=== PATIENT | female | born 1975 | race Caucasian/White ===

== ENCOUNTER 2020-04-18 23:21 | Emergency (ER) | payer OTHER, SELFPAY ==
[2020-04-18 23:30] VITALS: BP 134/80; PULSE 109; RESP 18; TEMP 36.9; O2SAT 100
[2020-04-18 23:55] LABS: Basophils Absolute Auto 0.1 K/mm3 (0.0-0.1); Basophils Percent Auto 1.3 % (0.2-1.2); Eosinophils Percent Auto 0.5 % (0-4.4); Hematocrit 44.2 % (37.0-47.0); Hemoglobin 15.4 g/dL (12.0-15.0); Immature Granulocyte Absolute 0.01 K/mm3 (0.00-0.031); Immature Granulocyte Percent A 0.3 % (0-0.5); Immature Platelet Fraction Pct 4.5 % (0.9-11.2); Lymphocytes Absolute Auto 1.73 K/mm3 (0.9-3.2); Lymphocytes Percent Auto 45.5 % (18.3-44.2); Mean Corpuscular HGB Conc 34.8 g/dl (32-36); Mean Corpuscular Hemoglobin 36.8 pg (26-34); Mean Corpuscular Volume 105.5 fl (80-100); Monocytes Absolute Auto 0.3 K/mm3 (0.1-0.6); Monocytes Percent Auto 8.7 % (2.6-8.5); Neutrophils Absolute Auto 1.7 K/mm3 (1.3-6.7); Neutrophils Percent Auto 43.7 % (45.5-73.1); Platelet Count Result 45 k/mm3 (150-375); Red Blood Count 4.19 M/mm3 (4.2-5.4); Red Cell Distribution Width 13.7 % (11.5-14.5); White Blood Count 3.8 K/mm3 (4.5-10.0)
[2020-04-19 00:02] LABS: Alanine Aminotransferase 87 U/L (4-35); Albumin Level 4.6 g/dL (3.5-5.1); Alkaline Phosphatase 186 U/L (38-126); Aspartate Amino Transferase 393 U/L (14-36); Bilirubin,Total 3.4 mg/dL (0.2-1.3); Blood Urea Nitrogen 10 mg/dL (7-17); Calcium 8.3 mg/dL (8.4-10.2); Carbon Dioxide 23 mmol/L (22-30); Chloride 94 mmol/L (98-107); Estimated Glomerular Filt Rate > 60; Glucose 76 mg/dL (65-105); Lipase 193 U/L (23-300); Potassium 3.3 mmol/L (3.4-5.0); Sodium 138 mmol/L (137-145)
--- NOTE | 2020-04-19 00:30 | PC.NURSE ---
Patient walked out.
== END 2020-04-19 00:30 | disposition left against medical advice (07) ==
PROVIDERS: Emergency Provider General Practice; PCP Physician Assistant
DX: Z53.21 Procedure and treatment not carried out due to patient leaving prior to being seen by health care provider (principal)
CPT/HCPCS: 36415; 80053; 83690; 85025; 85055; 99199

== ENCOUNTER 2020-05-21 17:07 | Emergency (ER) | payer OTHER, SELFPAY ==
[2020-05-21 17:10] VITALS: BP 105/80; PULSE 105; RESP 20; TEMP 37.1; O2SAT 100
[2020-05-21 17:50] LABS: Add Urine Microscopic? YES; Amorphous Sediment Urine Few; Appearance Urine Cloudy (Clear); Bacteria Urine Trace /hpf; Bilirubin Urine Negative (Negative); Blood Urine Negative (Negative); Color Urine Yellow (Yellow); Glucose Urine UA Negative (Negative); Ketones Urine Negative (Negative); Leukocyte Esterase Ur 2+ LEU/UL (Negative); Mucus Urine Rare /lpf; Nitrate Urine Negative (Negative); Protein Urine Negative (Negative); Specific Grav Ur 1.005 (1.001-1.035); Squamous Epithelial Cell Urine Many /hpf (Few)
--- NOTE | 2020-05-21 18:31 | ED.GENADULT ---
HPI - General Adult General Chief complaint: Unspecified Stated complaint: multiple complaints Time Seen by Provider: 05/21/20 17:51 Source: patient History of Present Illness HPI narrative: Bad odor urine, weakness, not feeling well for over 2 months. Trouble sleeping at night, patient denies any fever, chills, nausea, vomiting, diarrhea, constipation, chest pain, shortness of breath abdominal pain or back pain. Related Data Allergies Allergy/AdvReac Type Severity Reaction Status Date / Time No Known Allergies Allergy Verified 10/15/19 20:21 Review of Systems Review of Systems: Narrative: CONSTITUTIONAL: Denies fever, chills, or sweats. EYES: Denies visual changes, redness, or discharge. ENT: Denies rhinorrhea, congestion, sore throat, or otalgia. CARDIOVASCULAR: Denies chest pain, palpitations, or edema. RESPIRATORY: Denies cough or dyspnea. GASTROINTESTINAL: Denies abdominal pain, nausea, vomiting, or diarrhea. GENITOURINARY: Denies dysuria or hematuria. SKIN: Denies rash or itching. MUSCULOSKELETAL: Denies back pain, joint pain, or myalgia. NEUROLOGIC: Denies headache, numbness, or weakness. PSYCHIATRIC: Anxiety and depression PMFSH Past Medical History Medical History Anxiety Depression H/O: HTN (hypertension) Psoriasis Surgical History Surgical History No history of previous surgery Social History Social History Smoking packs per day: 1 Smoking cigarettes per day: 20.0 Smoking status: Current every day smoker Gender identity (if verbalized by the patient): Female Exam Narrative: Exam Narrative: General appearance: Well-developed, well-nourished Skin: Normal color Head: Normocephalic, nontraumatic Eyes: Clear conjunctiva ENT: Oropharynx normal, ears normal, nose normal Neck: Supple, nontender Chest and respiratory: Airway patent, no respiratory distress, no accessory muscle use Heart: Regular rate/rhythm Abdomen: Soft, nontender, no organomegaly, quiet bowel sounds Vascular: Normal peripheral pulses, normal capillary refill. 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 Further plan to follow. Patient had history of anxiety, depression, been having the above symptoms for over 2 months. Came today because her boyfriend insisted to bring her to our emergency room.. Main concern anxiety, depression, insomnia and a possible urinary tract infection. Patient denies COVID-19 exposure. Differential Diagnosis Differential Diagnosis: Urinary tract infection, depression, anxiety, insomnia, drug abuse. Vital Signs Vital Signs: Vital Signs Temperature 37.1 C 05/21/20 17:10 Pulse Rate 105 H 05/21/20 17:10 Respiratory Rate 05/21/20 17:10 Blood Pressure 105/80 05/21/20 17:10 Pulse Oximetry 100 05/21/20 17:10 Temperature 37.1 C 05/21/20 17:10 Pulse Rate 105 H 05/21/20 17:10 Respiratory Rate 05/21/20
== END 2020-05-21 18:48 | disposition home or self-care (01) ==
PROVIDERS: Physician Assistant; Emergency Provider Emergency Medicine; PCP Physician Assistant
DX: N39.0 Urinary tract infection, site not specified (principal); F32.9 Major depressive disorder, single episode, unspecified; I10 Essential (primary) hypertension; F17.210 Nicotine dependence, cigarettes, uncomplicated
CPT/HCPCS: 81001; 81025; 99283

== ENCOUNTER 2020-07-08 16:13 | Outpatient (CLI) | payer OTHER, SELFPAY ==
--- NOTE | ~2020-07-08 | CT_ITS ---
EXAMINATION: CT abdomen w con DATE: 07/08/2020 16:44 INDICATION: Right upper quadrant abdominal pain. TECHNIQUE: Computed tomography (CT) of the abdomen was performed with 100 mL Omnipaque 350 intravenou s contrast. Automated exposure control and iterative reconstruction technique were employed. The dose -length product was 128.79 mGy-cm. COMPARISON: None. FINDINGS: The visualized portions of the lung bases are clear without pneumonia or pleural effusion. The heart size is normal. No pericardial effusion. There is diffuse hepatic steatosis. The gallbladde r is normal in size. The spleen, pancreas, adrenal glands, and kidneys are normal. There are no dilat ed loops of bowel. There is mild thoracolumbar spondylosis. IMPRESSION: 1. Diffuse hepatic steatosis. Reviewed, dictated and finalized at location A.
[2020-07-08 16:38] LABS: Estimated Glomerular Filt Rate > 60
== END 2020-07-08 16:14 | disposition home or self-care (01) ==
PROVIDERS: Visit Provider Physician Assistant
DX: R10.11 Right upper quadrant pain (principal); K76.0 Fatty (change of) liver, not elsewhere classified
CPT/HCPCS: 74160; Q9967

== ENCOUNTER 2020-12-05 08:12 | Inpatient (IN) | payer OTHER, SELFPAY ==
[2020-12-05] VITALS (18 sets, daily range): BP systolic 98–152; BP diastolic 64–107; PULSE 87–98; RESP 12–22; TEMP 36.4–36.8; O2SAT 95–100
--- NOTE | ~2020-12-05 | CT_ITS ---
EXAMINATION: CT abdomen pelvis wo con DATE: 12/06/2020 18:16 INDICATION: Severe abdominal pain and distention TECHNIQUE: Computed tomography (CT) of the abdomen and pelvis was performed without intravenous contr ast. The dose-length product (DLP) was 219.97 mGy-cm. Automated exposure control and iterative recons truction technique were employed. COMPARISON: 12/05/2020 FINDINGS: Minimal dependent atelectasis is present in the lung bases. The heart size is normal. There is a small amount of ascites but significant decrease in volume post paracentesis. The liver is diff usely low in attenuation. The spleen, pancreas, adrenal glands, and gallbladder are grossly normal in the absence of intravenous contrast. Fluid surrounding the pancreas likely reflects ascites but panc reatitis is a consideration. The kidneys are unremarkable. No pathologically enlarged abdominal or pe lvic lymph nodes are identified. There is no free intraperitoneal gas or evidence of bowel obstructio n. Diffuse submucosal fat deposition throughout the colon may reflect inflammatory bowel disease. The re is a trace amount of gas in the urinary bladder. IMPRESSION: 1. Interval decrease in volume of ascites post paracentesis. 2. Fluid surrounding the pancreas, likely ascites but pancreatitis is a consideration. 3. Diffuse low-attenuation of the liver, consistent with hepatitis. Reviewed, dictated and finalized at location A. TER IMPRESSION: 1. Interval decrease in volume of ascites post paracentesis. 2. Fluid surrounding the pancreas, likely ascites but pancreatitis is a conside ration. 3. Diffuse low-attenuation of the liver, consistent with hepatitis.
--- NOTE | ~2020-12-05 | US_ITS ---
EXAMINATION: US abdomen limited DATE: 12/06/2020 11:10 INDICATION: Abnormal liver function tests. Abdominal pain. TECHNIQUE: Multiple grayscale and Doppler ultrasound images of the abdomen were obtained. COMPARISON: CT abdomen and pelvis 12/05/2020 FINDINGS: The visualized portions of the head, body, and tail of the pancreas are normal. There is di ffuse hepatic steatosis. No liver surface nodularity. The gallbladder is normal in size and contains sludge. Gallbladder wall thickening is noted. There was a positive sonographic Mccann sign. The commo n duct is normal and measures 6 mm. There is a small volume of ascites. There is normal flow in main portal vein. IMPRESSION: 1. Hepatic steatosis. 2. Normal-sized gallbladder with sludge, gallbladder wall thickening, and positive sonographic Mccann sign. These findings are indeterminate for acute cholecystitis. If there is clinical concern for acu te cholecystitis, consider hepatobiliary scintigraphy. 3. Small volume of ascites. Reviewed, dictated and finalized at location A. S DEPARTMENT MANAGER IMPRESSION: 1. Hepatic steatosis. 2. Normal-sized gallbladder with sludge, gallbladder wall thickening, and posit soila sonographic Mccann sign. These findings are indeterminate for acute cholecy stitis. If there is clinical concern for acute cholecystitis, consider hepatobi liary scintigraphy. 3. Small volume of ascites.
--- NOTE | ~2020-12-05 | XR_ITS ---
EXAMINATION: XR chest 1V portable DATE: 12/05/2020 09:36 INDICATION: Abdominal swelling. Weakness. TECHNIQUE: A single frontal view of the chest was obtained. COMPARISON: CT abdomen 07/08/2020 FINDINGS: The chest demonstrates clear lungs without pneumonia, pleural effusion, or pneumothorax. Th e heart size is normal. IMPRESSION: 1. No acute cardiopulmonary disease. Reviewed, dictated and finalized at location A. WELDER
--- NOTE | ~2020-12-05 | US_ITS ---
EXAMINATION: US paracentesis abd w/image EXAM DATE: 12/05/2020 13:22 INDICATION: Ascites, new onset. TECHNIQUE: The procedure and its risks and benefits were discussed with the patient. Alternatives als o discussed. Potential risks discussed included bleeding and infection. The skin was prepped and drap ed in sterile fashion. A total of 3 cc of 1% lidocaine was used for local anesthesia. Under ultrasoun d guidance, a 5 Fr catheter with trochar was advanced into the ascites in the left lower quadrant. Fl uid was aspirated into vacuum bottles. A total of 1.5 L straw colored fluid was taken in total. The catheter was removed, and a dressing was applied. There were no immediate complications. FINDINGS: Ultrasound images demonstrate ascites. IMPRESSION: Paracentesis yielding 1.5 L ascites for diagnostic purposes. Reviewed, dictated and finalized at location A. EXTINGUISHER INSPECTOR
--- NOTE | ~2020-12-05 | CT_ITS ---
EXAMINATION: CT abdomen pelvis w con EXAM DATE: 12/05/2020 11:20 INDICATION: Low abdominal pain. TECHNIQUE: Spiral CT of the abdomen and pelvis was performed following intravenous injection of 100 m L Omnipaque 350. Axial, coronal and sagittal images were reviewed. The dose-length product (DLP) fo r this examination was 201.86 mGy-cm. The exposure was tailored according to patient size (auto mA e xposure control), and iterative reconstruction (ASIR) was used as additional dose reduction technique . Comparison is made to prior examination from 07/08/2020. FINDINGS: Chronic severe hepatic steatosis, interval development of moderate amount of perihepatic as cites. There is also fluid in the gallbladder fossa. Gallbladder is moderately distended, similar to previous examination, without calcified cholelithiasis. No liver surface nodularity, but liver failur e, cirrhosis should be considered. Spleen is normal in size and adrenal glands are unremarkable. Generalized mesenteric, retroperitoneal, body wall fat stranding decreasing sensitivity for pancreati tis or other acute intra-abdominal processes. There is generalized colonic wall edema throughout the colon. There might be generalized small bowel wall edema as well. This is most likely from the same e tiology causing the generalized edema. Heart is normal in size. Consider checking patient's serum pro tein levels. Portal and splenic veins are patent. Kidneys enhance symmetrically. There is no hydronephrosis. T he uterus is unremarkable. The bladder is collapsed with some small foci of gas inside, could be fr om recent instrumentation but recommend correlating with urinalysis. There is no retroperitoneal or pelvic lymphadenopathy. The appendix is normal. No free intraperitoneal gas. The lung bases are un remarkable. There are no osteoblastic or osteolytic lesions identified. On previous examination patient also had severe hepatic steatosis. The ascites and generalized edema and bowel wall edema is new compared to that examination. IMPRESSION: 1. Severe hepatic steatosis. Interval development of moderate amount of ascites, extensive generaliz ed edema. Consider cirrhosis, hypoproteinemic etiology. 2. Bowel edema, retroperitoneal fat stranding, pericholecystic fluid most likely from the same under lying etiology. Can't radiographically exclude pancreatitis, cholecystitis, colitis. 3. Bladder gas, correlate with urinalysis. 4. Normal appendix. Reviewed, dictated and finalized at location A. AR TRIMMER IMPRESSION: 1. Severe hepatic steatosis. Interval development of moderate amount of ascite s, extensive generalized edema. Consider cirrhosis, hypoproteinemic etiology. 2. Bowel edema, retroperitoneal fat stranding, pericholecystic fluid most like ly from the same underlying etiology. Can't radiographically exclude pancreatit is, cholecystitis, colitis. 3. Bladder gas, correlate with urinalysis. 4. Normal appendix.
--- NOTE | ~2020-12-05 | US_ITS ---
EXAMINATION: US paracentesis abd w/image DATE: 12/06/2020 11:40 INDICATION: Ascites. TECHNIQUE: The procedure and its risks, benefits, and alternatives were discussed with the patient. P otential risks discussed included bleeding and infection. The skin was prepped and draped in sterile fashion. 1% lidocaine was used for local anesthesia. Under ultrasound guidance, a 5 Fr catheter with trochar was advanced into the ascites in the right abdomen. Fluid was aspirated. The catheter was rem son, and a dressing was applied. There were no immediate complications. FINDINGS: Ultrasound images demonstrate ascites and the catheter within the fluid. IMPRESSION: 1. Successful ultrasound-guided paracentesis yielding 925 mL of yellow fluid. Reviewed, dictated and finalized at location A. ETICS PROFESSOR
[2020-12-05] MEDS: SODIUM CHLORIDE 0.9% IV 1,000 ML 999 ML IV CONT (09:00)
[2020-12-05] MEDS: ONDANSETRON INJ 4 MG/2 ML VIAL IV PUSH (09:00)
[2020-12-05 09:20] LABS: Basophils Absolute Auto 0.1 K/mm3 (0.0-0.1); Basophils Percent Auto 0.7 % (0.2-1.2); Eosinophils Percent Auto 0.4 % (0-4.4); Hematocrit 28.3 % (37.0-47.0); Hemoglobin 9.7 g/dL (12.0-15.0); Immature Granulocyte Absolute 0.06 K/mm3 (0.00-0.031); Immature Granulocyte Percent A 0.5 % (0-0.5); Lymphocytes Absolute Auto 1.07 K/mm3 (0.9-3.2); Lymphocytes Percent Auto 9.4 % (18.3-44.2); Mean Corpuscular HGB Conc 34.3 g/dl (32-36); Mean Corpuscular Hemoglobin 37.7 pg (26-34); Mean Corpuscular Volume 110.1 fl (80-100); Mean Platelet Volume 10.9 fl (7.4-10.4); Monocytes Absolute Auto 0.7 K/mm3 (0.1-0.6); Monocytes Percent Auto 6.3 % (2.6-8.5); Neutrophils Absolute Auto 9.4 K/mm3 (1.3-6.7); Neutrophils Percent Auto 82.7 % (45.5-73.1); Platelet Count Result 77 k/mm3 (150-375); Red Blood Count 2.57 M/mm3 (4.2-5.4); Red Cell Distribution Width 18.6 % (11.5-14.5); White Blood Count 11.3 K/mm3 (4.5-10.0)
--- NOTE | 2020-12-05 09:27 | ED.ABDPAIN ---
HPI - Abdominal Pain General Chief Complaint: Abdominal Pain Stated Complaint: Abd, N/V/D Time Seen by Provider: 12/05/20 08:16 Source: patient Mode of arrival: EMS Limitations: no limitations History of Present Illness HPI narrative: This is 45 year old female with history of alcoholism who presents for evaluation of abdominal pain with nausea and vomiting. She reports diffuse abdominal pain for 6 days. She also reports intractable nausea and vomiting. She is unable to keep any by mouth down. She is jaundice. She has recently been seen by a liver specialist at [facility], and she reports she was told everything was fine. She has been jaundice before but it resolved by the time she was evaluated by GI at [facility]. Her last drink of alcohol was 2 weeks ago. She denies fever, chills, chest pain, cough. She also notes her abdomen is distended. Related Data Home Medications Medication Instructions Recorded Confirmed amlodipine 5 mg PO DAILY 12/05/20 12/05/20 atenolol 25 mg PO DAILY 12/05/20 12/05/20 lisinopril 20 mg PO DAILY 12/05/20 12/05/20 zolpidem [Ambien] 10 mg PO HS PRN 12/05/20 12/05/20 Allergies Allergy/AdvReac Type Severity Reaction Status Date / Time No Known Allergies Allergy Verified 12/05/20 16:20 Review of Systems Review of Systems: All systems reviewed & are unremarkable except as noted in HPI and below Constitutional: Constitutional: Denies chills and Denies fever(s) Cardiovascular: Cardiovascular: Denies chest pain Respiratory: Respiratory: Denies cough and Denies dyspnea Gastrointestinal: Gastrointestinal: Reports abdominal pain, Reports diarrhea, Reports nausea and Reports vomiting [facility] Past Medical History Medical History (Updated 12/05/20 @ 14:20 by Kalyn Crawford MD) Anxiety Depression H/O: HTN (hypertension) Psoriasis Surgical History Surgical History No history of previous surgery Social History Social History Smoking packs per day: 0.5 Smoking cigarettes per day: 10.0 Years smoked: 20 Smoking pack-years: 10.00 Smoking status: Current every day smoker Tobacco type: cigarettes Alcohol intake: former Substance use: former Substance use type: marijuana Gender identity (if verbalized by the patient): Female Spiritual care concerns: No Exam Const: General: alert and ill appearing Nutritional Appearance: thin Orientation/consciousness: patient oriented x3 Eyes: Conjunctivae: conjunctival abnormality bilateral conjunctival icterus EOM: EOMs intact bilaterally Resp: Effort & Inspection: normal respiratory effort and no retractions Auscultation: clear to auscultation bilaterally Cardio: Rate: regular rate Rhythm: regular rhythm Heart sounds: no murmurs GI: Inspection: distended GI Palp: Yes Soft to palpation and Yes Tenderness to palpation present (GI) (diffuse) Auscultation: normal bowel sounds Skin: General skin exam: jaundice Neuro: General: patient oriented x3 and moves all extremities Extrem: General: no pedal edema Course Reevaluation(s) Reevaluation #1: I discussed with patient that she will be admitted at [place] with GI consult. She states she feels better after paracentesis. She denies nausea. She will be treated for SBP for now and given potassium replacement. She received magnesium replacement with banana bag Date: 12/05/20 Time: 14:17 Consultations Consultation #1: I Discussed case with Dr. Mariaelena Slade. I asked if felt comfortable consulting or if I should transfer. He is okay with consultation. Date: 12/05/20 Time: 14:16 Consultation #2: I discussed case with Lauren Worley who accepts patient to hospitalist service with GI consult. Date: 12/05/20 Time: 14:16 Vital Signs Vital signs: Vital Signs Temperature 98.2 F 12/05/20 08:18 Pulse Rate 94 12/05/20 08:18 Respiratory Rate 16 12/05/20 0
[2020-12-05 09:31] LABS: Ammonia 44 umol/L (9-30)
[2020-12-05 09:38] LABS: Albumin Level 2.4 g/dL (3.5-5.1); Alkaline Phosphatase 251 U/L (38-126); Anion Gap 8 mmol/L (8-16); Aspartate Amino Transferase 220 U/L (14-36); Bilirubin Direct 9.4 mg/dL (0-0.3); Bilirubin,Total 15.5 mg/dL (0.2-1.3); Blood Urea Nitrogen 6 mg/dL (7-17); Calcium 6.9 mg/dL (8.4-10.2); Carbon Dioxide 33 mmol/L (22-30); Chloride 97 mmol/L (98-107); Estimated CRCL calculation 121 ml/min; Estimated Glomerular Filt Rate > 60; Glucose 73 mg/dL (65-105); Lipase 20 U/L (23-300); Magnesium 1.1 mg/dL (1.6-2.3); Potassium 2.7 mmol/L (3.4-5.0); Sodium 138 mmol/L (137-145)
[2020-12-05 09:43] LABS: Alanine Aminotransferase 59 U/L (4-35)
[2020-12-05 09:56] LABS: Prothrombin Time 23.1 Seconds (11.1-14.7)
[2020-12-05 09:57] LABS: Partial Thromboplastin Time 40.2 SECONDS (22.3-36.8)
[2020-12-05] MEDS: THIAMINE HCL INJ 100 MG, FOLIC ACID INJ 1 MG, MULTIVITAMINS-12 INJ VIAL 1 5 ML, MULTIVI... IV CONT (10:00)
[2020-12-05 11:24] LABS: Add Urine Microscopic? YES; Appearance Urine Clear (Clear); Bacteria Urine 4+ /hpf; Bilirubin Urine 2+ (Negative); Blood Urine Negative (Negative); Color Urine Red (Yellow); Glucose Urine UA Negative (Negative); Ketones Urine Trace mg/dL (Negative); Leukocyte Esterase Ur Negative LEU/UL (Negative); Mucus Urine Heavy /lpf; Nitrate Urine Positive (Negative); Protein Urine 2+ mg/dL (Negative); Specific Grav Ur 1.025 (1.001-1.035); WBC Urine 31-50 /hpf
[2020-12-05 14:15] LABS: Appearance Peritoneal Fluid Clear (Clear); Color Peritoneal Fluid Yellow (Colorless); Nucleated Cells Peritoneal Flu 56 /uL (0-500); RBC Peritoneal Fluid 627 /uL (0-100000); Source Peritoneal Fluid Peritoneal Fluid
[2020-12-05] MEDS: POTASSIUM CHLORIDE 20 MEQ TABLET 40 MEQ PO (14:50)
[2020-12-05 14:51] LABS: Lymphocytes Peritoneal Fluid 26 %; Macrophages Peritoneal Fluid 64 %; Mesothelial Cells Peritoneal Fluid 8 %; Neutrophils Peritoneal Fluid 2 % (0-25)
--- NOTE | 2020-12-05 16:12 | ADMGEN ---
This patient, Dena Proctor, was admitted to 2 Medical Room 260-. Patient/family oriented to hospital policies and general routines including ID bracelet, bed and alarms, visiting hours, pain management, procedures, bathroom and other care routines, personal items, smoking policy, room service/diet, and visiting hours. Information on how to activate the Rapid Response Team has been discussed. Patient/Family are encouraged to report perceived risks to care and to ask questions if they do not understand what they are told or what they should do.
--- NOTE | 2020-12-05 20:49 | PM.IMHP ---
H&P: HPI History of Present Illness Date/Time: 12/05/20 20:49 Chief Complaint: Jaundice and abdominal pain Narrative: Dena Proctor is a 45 year old female who has a history of alcoholism. The patient stated that she was a heavy drinker and quit drinking about 10 years ago. She states that occasionally she will have here with her . The patient has gone to liver specialist at [facility] in the past. She said that they ran a hepatitis panel and stated that she did not have hepatitis. The patient was jaundiced at that time. They told her that there was nothing that they could do for her at that time. The patient stated that she went to them 2 times total but does not recall the name of the doctor. However for the last 6 days she has had nausea vomiting and diarrhea. The patient stated that she cannot control her diarrhea and that she has had to wear large pad due to multiple loose stools. The patient was found to be jaundiced today. The patient stated that she laid on the couch for 6 days because she was so weak. She had intractable nausea and vomiting. Dr. Yates was consulted and agreed to accept the patient for consult. She has not had any fever chills. The patient's belly was distended. She stated she felt like she was 9 months . The patient did have a paracentesis for diagnostic purposes. She had not had a paracentesis in the past. She had 1.5 mL drained off of her abdomen and she did get some recent leave. A banana bag was started on her in the emergency room the patient stated she felt like her abdomen was becoming more distended again. So we stop banana bag. The patient took some clear liquids tonight which made her become distended. The patient was also found have a UTI and was started on Rocephin. It was thought that the patient might also have SBP the patient's potassium was listed as 2.7 and she was given A K- rider. Magnesium 1.1. AST is 220 ALT is 59 alkaline phosphatase 251 ammonia 44 lipase is 20. Patient is admitted inpatient status on the date of service 12/05/2020 Review of Systems Review of Systems: All systems reviewed & are unremarkable except as noted in HPI and below Constitutional: Constitutional: Reports as per HPI and Reports no additional constitutional complaints Eyes: Eyes: Reports as per HPI and Reports no additional eye complaints ENT: Reports system reviewed and no additional complaints, except as documented and Reports Normal hearing present Cardiovascular: Cardiovascular: Reports no additional cardiovascular complaints Respiratory: Respiratory: Reports no additional respiratory complaints and Reports no additional respiratory complaints Gastrointestinal: Gastrointestinal: Reports as per HPI and Reports no additional gastrointestinal complaints Musculoskeletal: Musculoskeletal: Reports no additional musculoskeletal complaints Integumentary/Breasts: Skin/Breast: Reports system reviewed and no additional complaints, except as docu and Reports as per HPI Neurologic: Reports system reviewed and no additional complaints, except as documented, Reports as per HPI and Reports Normal hearing present Psychiatric: Psychiatric: Reports no additional psychiatric complaints and Reports as per HPI Endocrine: Endocrine: Reports no additional endocrine complaints Hematologic/Lymphatic: Hematologic/Lymphatic: Reports no additional hematologic/lymphatic complaints Allergic/Immunologic: Allergic/Immunologic: Reports no additional allergic/immunologic complaints PMF Past Medical History Medical History (Updated 12/05/20 @ 21:26 by Lauren Worley NP) Alcoholism Anxiety Depression H/O: HTN (hypertension) HTN (hypertension), benign Psoriasis Surgical History Surgical History No history of previous surgery Family History Family History (Updated 12/05/20 @ 21:11 by Lauren Worley NP) Mother Lung cancer Hype
[2020-12-05] MEDS: MAGNESIUM SULF 2 GM/WATER 50ML 2 GM/50 ML BAG IVPB (21:28)
[2020-12-05] MEDS: ZOLPIDEM TARTRATE (*CRX) 5 MG TABLET 10 MG PO (21:29)
[2020-12-06] VITALS (11 sets, daily range): BP systolic 98–120; BP diastolic 55–75; PULSE 86–104; RESP 16–25; TEMP 36.4–37.2; O2SAT 92–98; BMI 17.9
[2020-12-06 05:35] LABS: Basophils Absolute Auto 0.1 K/mm3 (0.0-0.1); Basophils Percent Auto 0.8 % (0.2-1.2); Eosinophils Absolute Auto 0.1 K/mm3 (0-0.3); Eosinophils Percent Auto 1.2 % (0-4.4); Hematocrit 23.8 % (37.0-47.0); Hemoglobin 8.3 g/dL (12.0-15.0); Immature Granulocyte Absolute 0.08 K/mm3 (0.00-0.031); Immature Granulocyte Percent A 0.8 % (0-0.5); Immature Platelet Fraction Pct 8.4 % (0.9-11.2); Lymphocytes Absolute Auto 1.46 K/mm3 (0.9-3.2); Lymphocytes Percent Auto 14.7 % (18.3-44.2); Mean Corpuscular HGB Conc 34.9 g/dl (32-36); Mean Corpuscular Hemoglobin 38.6 pg (26-34); Mean Corpuscular Volume 110.7 fl (80-100); Mean Platelet Volume 12.1 fl (7.4-10.4); Monocytes Absolute Auto 0.8 K/mm3 (0.1-0.6); Monocytes Percent Auto 7.5 % (2.6-8.5); Neutrophils Absolute Auto 7.5 K/mm3 (1.3-6.7); Platelet Count Result 83 k/mm3 (150-375); Red Blood Count 2.15 M/mm3 (4.2-5.4); Red Cell Distribution Width 18.8 % (11.5-14.5)
[2020-12-06 06:12] LABS: INR 1.9; Prothrombin Time 22.5 Seconds (11.1-14.7)
[2020-12-06 06:13] LABS: Partial Thromboplastin Time 44.4 SECONDS (22.3-36.8)
[2020-12-06 07:57] LABS: Alanine Aminotransferase 56 U/L (4-35); Albumin Level 2.2 g/dL (3.5-5.1); Alkaline Phosphatase 251 U/L (38-126); Anion Gap 6 mmol/L (8-16); Aspartate Amino Transferase 211 U/L (14-36); Bilirubin,Total 14.3 mg/dL (0.2-1.3); Blood Urea Nitrogen 4 mg/dL (7-17); Carbon Dioxide 29 mmol/L (22-30); Chloride 100 mmol/L (98-107); Estimated CRCL calculation 117 ml/min; Estimated Glomerular Filt Rate > 60; Glucose 69 mg/dL (65-105); Lactate Dehydrogenase 285 U/L (313-618); Magnesium 1.7 mg/dL (1.6-2.3); Potassium 3.2 mmol/L (3.4-5.0); Sodium 135 mmol/L (137-145)
[2020-12-06] MEDS: THIAMINE HCL 200 MG/2 ML VIAL 100 MG IV PUSH (08:07)
[2020-12-06] MEDS: FOLIC ACID 1 MG/0.2 ML INJ IV PUSH (08:08)
[2020-12-06] MEDS: PANTOPRAZOLE SODIUM IV 40 MG VIAL IV PUSH (08:08)
[2020-12-06 09:18] LABS: Free T4 Free Thyroxine Reflex 1.62 ng/dL (0.78-2.19)
--- NOTE | 2020-12-06 10:51 | PM.IMPN ---
Progress Note: A&P Assessment and Plan (1) Cirrhosis: Code(s): K74.60 - Unspecified cirrhosis of liver Status: Acute Assessment and Plan: Patient has a history of alcoholism and continues to drink occasionally which is likely the cause of her liver failure -her CT shows severe hepatic steatosis which is interesting. Awaiting ultrasound results for further clarification -could be multifactorial. 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 Can consider autoimmune hepatitis as well -I recommend she get a liver biopsy -will draw hepatitis labs, SANKET, anti smooth muscle, anti trypsin, and immunoglobulin panel -paracentesis done 12/05 which helped but then she received fluids and said she is now distended again -no infection suspected but will monitor cultures -albumin slightly low. Blood pressure is also low. May consider giving albumin and diuretics but will ask GI their recommendations -patient is alert oriented x4, no need for lactulose. -likely has diarrhea due to liver failure, will do stool cultures just in case -no pruritus this at this time (2) Hyperbilirubinemia: Code(s): E80.6 - Other disorders of bilirubin metabolism Status: Acute Assessment and Plan: Likely due to liver failure -autoimmune anemia less likely due to low LDH (3) Transaminasemia: Code(s): R74.01 - Elevation of levels of liver transaminase levels Status: Acute Assessment and Plan: As above (4) Hypomagnesemia: Code(s): E83.42 - Hypomagnesemia Status: Acute Assessment and Plan: Magnesium 1.7 -will redraw with morning labs (5) HTN (hypertension), benign: Code(s): I10 - Essential (primary) hypertension Status: Chronic Assessment and Plan: Last blood pressure 98/55 -hold home medications (6) Jaundice: Code(s): R17 - Unspecified jaundice Status: Acute Assessment and Plan: Secondary to her liver disease (7) Anemia: Code(s): D64.9 - Anemia, unspecified Status: Acute Assessment and Plan: Hemoglobin dropped who compared to last year -likely due to chronic disease -will run anemia labs (8) Hypokalemia: Code(s): E87.6 - Hypokalemia Status: Acute Assessment and Plan: Improving, supplement again today (9) Nausea and vomiting: Code(s): R11.2 - Nausea with vomiting, unspecified Status: Acute Assessment and Plan: Improved (10) Thrombocytopenia: Code(s): D69.6 - Thrombocytopenia, unspecified Status: Acute Assessment and Plan: Likely due to liver disease . (11) Alcoholism: Code(s): F10.20 - Alcohol dependence, uncomplicated Status: Inactive Assessment and Plan: Continue folic acid and thigh min. Patient plans to quit and is tearful -Support offered. She states she is going to do this on her own. Family at bedside plans to help. (12) Diarrhea: Code(s): R19.7 - Diarrhea, unspecified Status: Acute Assessment and Plan: Likely due to liver failure -will check cultures just in case -Add banitrol Time Spent With Patient Time with patient: 25 - 35 minutes Subjective Date/time seen: 12/06/20 10:51 Interval history: Pt is a 45-year-old female here for liver failure. Patient was seen today and states she feels swollen and she continues to have diarrhea. She has been NPO for her paracentesis and is hungry. Pt denies nausea, vomiting, itching, fevers, chills, chest pain, sob, or abdominal pain. She states in the past she has seen a liver specialist but never had a biopsy. She says she has psoriasis but does not take any medications for such. She does not do IV drugs but does have professional tattoos. She occasionally drinks shots of alcohol. She has about 5-9 bouts of diarrhea a day but denies blood or dark stool. She is eating and
[2020-12-06 11:53] LABS: Total Triiodothyronine (T3) 0.43 NG/ML (0.97-1.69)
[2020-12-06] MEDS: POTASSIUM CHLORIDE 20 MEQ TABLET 40 MEQ PO (12:00)
[2020-12-06 12:09] LABS: Hematocrit 27.2 % (37.0-47.0); Hemoglobin 9.3 g/dL (12.0-15.0)
[2020-12-06 12:43] LABS: Iron 41 ug/dL (37-170); Percent Iron Saturation 30 % (20-50)
[2020-12-06 13:05] LABS: Hepatitis B Surface Antigen Negative (Negative)
[2020-12-06 13:11] LABS: HAV RESULT Negative (Negative); Hepatitis B Core IgM Result Negative (Negative)
[2020-12-06 13:23] LABS: Hepatitis C Virus Antibody Negative (Negative)
[2020-12-06 13:26] LABS: Folic Acid 18.8 ng/mL (2.76->20)
--- NOTE | 2020-12-06 15:08 | WPDGICN ---
Assessment and Plan Assessment and plan (1) Alcoholic hepatitis with ascites: Code(s): K70.11 - Alcoholic hepatitis with ascites Status: Acute Assessment and Plan: she now has decompensated alcoholic hepatitis/cirrhosis with new ascites, this is her first paracentesis- no evidence of SBP. Albumin in fluid is pending to rule out if portal hypertension. 2g na diet with nutrition supplement will start on diuretics for now (lasix 40mg, aldactone 100mg) and continue to monitor lytes and renal function she will need to call again her first crusher [facility], if she can successfully remain abstinent then will benefit from liver transplant evaluation down the road she has elevated discriminant function at 51- will start on trental (she may have uti and started on antibiotics, hold off steroids), MELD score 15 (2) Cirrhosis, alcoholic: Code(s): K70.30 - Alcoholic cirrhosis of liver without ascites Status: Acute Assessment and Plan: cirrhosis probably is alcohol related, work up for other chronic liver conditions pending hepatitis panel negative (3) Thrombocytopenia: Code(s): D69.6 - Thrombocytopenia, unspecified Status: Acute Assessment and Plan: from cirrhosis (4) Nausea and vomiting: Code(s): R11.2 - Nausea with vomiting, unspecified Status: Acute Assessment and Plan: egd tomorrow, also will be helpful to assess if varices, phg, etc (5) Hypokalemia: Code(s): E87.6 - Hypokalemia Status: Acute Assessment and Plan: treated and continue to monitor (6) Hyperbilirubinemia: Code(s): E80.6 - Other disorders of bilirubin metabolism Status: Acute (7) HTN (hypertension), benign: Code(s): I10 - Essential (primary) hypertension Status: Chronic GI Consult Note Consult date/time: 12/06/20 15:08 Reason for consult: decompensated alcoholic cirrhosis, ascites HPI: Dena Proctor is a 45 year old female who is an alcoholic, about 1 pint of heavy liquor for 20 years, she says that finally slowed down about 6 months after got sicker with intermittent nausea, last time she got anything to drink about 3 weeks ago. She has seen a first crusher in [facility] because elevated liver enzymes , no records to review. She says that noted increasing abdominal girth with more fatigue than usual, also decrease appetite, loose stool and dark urine. More nausea and vomiting for last 5-6 days and finally came to ER. She was found to have alcoholic hepatitis, potassium 2.7 and treated, magnesium 1.1. AST 220, ALT 59, alkaline phosphatase 251, bili 14, inr 1.9, ammonia 44, lipase is 20, plat 80, creat 0.4. CT scan reviewed, hepatic steatosis with ascites. She underwent paracentesis twice (total removed ~ 2.5 L), studies did not reveal SBP. Also possible UTI started on rocephin. Hepatitis panel negative, she has multiple tattoos. Review of Systems Constitutional: Constitutional: Reports lethargy Eyes: Eyes: Reports no additional eye complaints ENT: Reports system reviewed and no additional complaints, except as documented Cardiovascular: Cardiovascular: Denies lightheadedness Respiratory: Respiratory: Denies cough Gastrointestinal: Gastrointestinal: Reports abdominal pain, Reports nausea and Reports vomiting Genitourinary: Comments: dark urine Musculoskeletal: Musculoskeletal: Denies back pain Integumentary/Breasts: Skin/Breast: Denies pruritus Neurologic: Denies headache(s) Psychiatric: Psychiatric: Reports anxiety Endocrine: Endocrine: Denies cold intolerance [facility] Past Medical History Medical History (Updated 12/06/20 @ 15:18 by Jimmy Hoyt MD) Alcoholic hepatitis with ascites Alcoholism Anxiety Cirrhosis, alcoholic Depression H/O: HTN (hypertension) HTN (hypertension), benign Psoriasis Surgical History Surgical History No history of previous surgery Family Histor
[2020-12-06] MEDS: SPIRONOLACTONE 50 MG TABLET 100 MG PO (16:02)
[2020-12-06] MEDS: ZINC SULFATE 220 MG CAPSULE PO (16:02)
[2020-12-06] MEDS: PENTOXIFYLLINE 400 MG TABCR PO (16:02)
[2020-12-06] MEDS: FUROSEMIDE 40 MG TABLET PO (16:02)
[2020-12-06] MEDS: chlordiazePOXIDE (*CRX) 10 MG CAPSULE PO (18:49)
[2020-12-06] MEDS: ZOLPIDEM TARTRATE (*CRX) 5 MG TABLET 10 MG PO (20:06)
[2020-12-06 21:41] LABS: Lipase 19 U/L (23-300)
[2020-12-07] VITALS (13 sets, daily range): BP systolic 77–103; BP diastolic 51–66; PULSE 82–98; RESP 16–30; TEMP 36.4–37; O2SAT 94–98
[2020-12-07 00:43] LABS: Lipase 25 U/L (23-300)
[2020-12-07 06:49] LABS: Hematocrit 25.1 % (37.0-47.0); Hemoglobin 8.5 g/dL (12.0-15.0); Mean Corpuscular HGB Conc 33.9 g/dl (32-36); Mean Corpuscular Hemoglobin 37.6 pg (26-34); Mean Corpuscular Volume 111.1 fl (80-100); Mean Platelet Volume 10.9 fl (7.4-10.4); Platelet Count Result 93 k/mm3 (150-375); Red Blood Count 2.26 M/mm3 (4.2-5.4); Red Cell Distribution Width 18.9 % (11.5-14.5); White Blood Count 11.5 K/mm3 (4.5-10.0)
[2020-12-07 06:53] LABS: INR 1.9; Prothrombin Time 22.3 Seconds (11.1-14.7)
[2020-12-07 07:01] LABS: Alanine Aminotransferase 58 U/L (4-35); Albumin Level 2.3 g/dL (3.5-5.1); Alkaline Phosphatase 238 U/L (38-126); Anion Gap 4 mmol/L (8-16); Aspartate Amino Transferase 208 U/L (14-36); Bilirubin Direct 8.6 mg/dL (0-0.3); Bilirubin,Total 14.8 mg/dL (0.2-1.3); Blood Urea Nitrogen 3 mg/dL (7-17); Calcium 6.9 mg/dL (8.4-10.2); Carbon Dioxide 32 mmol/L (22-30); Chloride 98 mmol/L (98-107); Estimated CRCL calculation 81 ml/min; Estimated Glomerular Filt Rate > 60; Glucose 88 mg/dL (65-105); Potassium 3.5 mmol/L (3.4-5.0); Sodium 134 mmol/L (137-145)
[2020-12-07] MEDS: PANTOPRAZOLE SODIUM IV 40 MG VIAL IV PUSH (08:58)
[2020-12-07] MEDS: FOLIC ACID 1 MG/0.2 ML INJ IV PUSH (09:01)
--- NOTE | 2020-12-07 09:20 | PC.NURSE ---
Pt to GI lab per cong. Report to JOSEMANUEL Gray.
--- NOTE | 2020-12-07 09:28 | WPDANESEPPF ---
Anes - Initial Pre Proc Eval Procedure: Operation Date: 12/07/20 10:45 Proposed Procedures p Esophagogastroduodenoscopy - Jimmy Hoyt MD Date/Time: 12/07/20 09:28 Surgeon: Dona Lai PA-C Pre Op Diagnosis: Abdominal pain with ascites/cirrhosis/hypokalemia Patient Data Age: 45 Gender: F Height: 1.68 m Weight: 50 kg Last Vital Signs Temp 36.5 C 12/07/20 05:12 Pulse 87 12/07/20 08:00 Resp 16 12/07/20 05:12 BP 103/66 12/07/20 05:12 Pulse Ox 95 12/07/20 05:12 Allergies Allergy/AdvReac Type Severity Reaction Status Date / Time No Known Allergies Allergy Verified 12/05/20 16:20 Home Medications Medication Instructions Recorded Confirmed Type amlodipine 5 mg PO DAILY 12/05/20 12/05/20 History atenolol 25 mg PO DAILY 12/05/20 12/05/20 History lisinopril 20 mg PO DAILY 12/05/20 12/05/20 History zolpidem [Ambien] 10 mg PO HS PRN 12/05/20 12/05/20 History Laboratory Tests 12/06/20 12/06/20 12/06/20 05:13 06:12 11:52 WBC RBC Hgb Hct MCV MCH MCHC RDW Plt Count MPV PT INR Sodium Potassium Chloride Carbon Dioxide Anion Gap BUN Creatinine Estim Creat Clear Calc Estimated GFR Glucose Calcium Iron 41 ug/dL ug/dL (37-170) TIBC 135 ug/dL L ug/dL (261-462) % Saturation 30 % % (20-50) Ferritin 651.00 ng/mL H ng/mL (6.24-137) Total Bilirubin Direct Bilirubin Indirect Bilirubin AST ALT Alkaline Phosphatase Total Protein Albumin Alpha-1-AT Phenotype Ceruloplasmin Lipase 19 U/L L U/L (23-300) Vitamin B12 Folate Total T3 0.43 NG/ML L NG/ML (0.97-1.69) Immunoglobulin A Immunoglobulin G Immunoglobulin M SANKET Screen Mitochondria M2 IgG Ab Actin IgG Antibody Hepatitis A IgM Ab Hep Bs Antigen Hep B Core IgM Ab Hepatitis C Ab Screen LILLY, IgG Interpret LILLY, Poly Interpret LILLY, Complement Interp 12/06/20 12/06/2012/06/21 11:52 11:52 11:52 WBC RBC Hgb 9.3 g/dL L g/dL (12.0-15.0) Hct 27.2 % L % (37.0-47.0) MCV MCH MCHC RDW Plt Count MPV PT INR Sodium Potassium Chloride Carbon Dioxide Anion Gap BUN Creatinine Estim Creat Clear Calc Estimated GFR Glucose Calcium Iron TIBC % Saturation Ferritin Total Bilirubin Direct Bilirubin Indirect Bilirubin AST ALT Alkaline Phosphatase Total Protein Albumin Alpha-1-AT Phenotype Ceruloplasmin Lipase Vitamin B12 Folate Total T3 Immunoglobulin A Immunoglobulin G Immunoglobulin M SANKET Screen Mitochondria M2 IgG Ab Actin IgG Antibody Hepatitis A IgM Ab Negative (Negative) Hep Bs Antigen Negative (Negative) Hep B Core IgM Ab Negative (Negative) Hepatitis C Ab Screen Negative (Negative) LILLY, IgG Interpret Negative LILLY, Poly Interpret Negative LILLY,
[2020-12-07] MEDS: LACTATED RINGERS 1,000 ML 150 ML IV CONT (09:49)
--- NOTE | 2020-12-07 11:20 | PC.NURSE ---
Pt returned from GI lab per cong.
[2020-12-07] MEDS: SPIRONOLACTONE 50 MG TABLET 100 MG PO (11:28)
[2020-12-07] MEDS: PENTOXIFYLLINE 400 MG TABCR PO ×2 (11:28→18:01)
[2020-12-07] MEDS: ZINC SULFATE 220 MG CAPSULE PO (11:28)
[2020-12-07] MEDS: chlordiazePOXIDE (*CRX) 10 MG CAPSULE PO (11:28)
[2020-12-07] MEDS: FUROSEMIDE 40 MG TABLET PO (11:29)
[2020-12-07] MEDS: THIAMINE HCL 200 MG/2 ML VIAL 100 MG IV PUSH (12:01)
--- NOTE | 2020-12-07 14:31 | PM.IMPN ---
Progress Note: A&P Assessment and Plan (1) Hypotension: Code(s): I95.9 - Hypotension, unspecified Status: Acute Assessment and Plan: Last blood pressure 79/52 -patient is having lightheadedness which she says she gets home at times -this is likely due to the diuretics, I talked to Dr. Yates and we have decreased both of the Lasix and the spironolactone -I do not suspect infection to be the cause of this. Her blood cultures are negative and she does not have any fevers. -will monitor closely, continue telemetry (2) Acute alcoholic hepatitis: Code(s): K70.10 - Alcoholic hepatitis without ascites Status: Acute Assessment and Plan: Patient has a history of alcoholism and continues to drink occasionally which is likely the cause of her liver failure -her CT shows severe hepatic steatosis which is interesting. Ultrasound also shows this -EGD does not show esophageal varices but does show signs of portal hypertension according to Dr. Yates -could be multifactorial. Patient has a history of untreated psoriasis which is an autoimmune disease. Can consider autoimmune hepatitis as well -I recommend she get a liver biopsy -hepatitis panel negative - SANKET, anti smooth muscle, anti trypsin, and immunoglobulin panel pending -paracentesis done 12/05 and 12/06 -no infection suspected but will monitor cultures -albumin slightly low. Blood pressure is also low. May consider giving albumin and diuretics but will ask GI their recommendations -patient is alert oriented x4, no need for lactulose. -no pruritus this at this time (3) Cirrhosis: Code(s): K74.60 - Unspecified cirrhosis of liver Status: Acute Assessment and Plan: As above (4) Hyperbilirubinemia: Code(s): E80.6 - Other disorders of bilirubin metabolism Status: Acute Assessment and Plan: Likely due to liver failure -autoimmune anemia less likely due to low LDH (5) Transaminasemia: Code(s): R74.01 - Elevation of levels of liver transaminase levels Status: Acute Assessment and Plan: As above (6) Hypomagnesemia: Code(s): E83.42 - Hypomagnesemia Status: Acute Assessment and Plan: Magnesium 1.7 yesterday -will redraw with morning labs (7) HTN (hypertension), benign: Code(s): I10 - Essential (primary) hypertension Status: Chronic Assessment and Plan: Running low, as stated above (8) Jaundice: Code(s): R17 - Unspecified jaundice Status: Acute Assessment and Plan: Secondary to her liver disease (9) Anemia: Code(s): D64.9 - Anemia, unspecified Status: Acute Assessment and Plan: Hemoglobin dropped who compared to last year -likely due to chronic disease (10) Hypokalemia: Code(s): E87.6 - Hypokalemia Status: Acute Assessment and Plan: Improved to 3.5 (11) Nausea and vomiting: Code(s): R11.2 - Nausea with vomiting, unspecified Status: Acute Assessment and Plan: Improved (12) Thrombocytopenia: Code(s): D69.6 - Thrombocytopenia, unspecified Status: Acute Assessment and Plan: Likely due to liver disease . (13) Alcoholism: Code(s): F10.20 - Alcohol dependence, uncomplicated Status: Inactive Assessment and Plan: Continue folic acid and thiamine. Patient plans to quit and is tearful -Support offered. She states she is going to do this on her own. Family at bedside plans to help. (14) Diarrhea: Code(s): R19.7 - Diarrhea, unspecified Status: Acute Assessment and Plan: Likely due to liver failure -improved Subjective Date/time seen: 12/07/20 14:31 Interval history: Pt is a 45-year-old female here for liver failure. Patient was seen today and is doing okay. She says she has some lightheadedness that happens when she stands up. She say
[2020-12-07] MEDS: LORazepam (*CRX) 0.5 MG TABLET PO (14:39)
[2020-12-07] MEDS: ONDANSETRON INJ 4 MG/2 ML VIAL IV PUSH (14:39)
[2020-12-07 18:32] LABS: IFOB Positive Control Positive; Immunochemical Fecal Occult Bl Negative (N)
[2020-12-08] VITALS (8 sets, daily range): BP systolic 92–124; BP diastolic 56–86; PULSE 76–94; RESP 16–20; TEMP 36.1–36.8; O2SAT 95–98
[2020-12-08] MEDS: chlordiazePOXIDE (*CRX) 10 MG CAPSULE PO ×3 (01:25→17:40)
[2020-12-08 07:03] LABS: Basophils Percent Auto 0.2 % (0.2-1.2); Eosinophils Percent Auto 0.3 % (0-4.4); Hemoglobin 10.1 g/dL (12.0-15.0); Immature Granulocyte Absolute 0.13 K/mm3 (0.00-0.031); Lymphocytes Absolute Auto 1.24 K/mm3 (0.9-3.2); Lymphocytes Percent Auto 9.8 % (18.3-44.2); Mean Corpuscular HGB Conc 33.7 g/dl (32-36); Mean Corpuscular Hemoglobin 38.7 pg (26-34); Mean Corpuscular Volume 114.9 fl (80-100); Mean Platelet Volume 10.7 fl (7.4-10.4); Monocytes Percent Auto 7.6 % (2.6-8.5); Neutrophils Absolute Auto 10.2 K/mm3 (1.3-6.7); Neutrophils Percent Auto 81.1 % (45.5-73.1); Platelet Count Result 98 k/mm3 (150-375); Red Blood Count 2.61 M/mm3 (4.2-5.4); Red Cell Distribution Width 19.5 % (11.5-14.5); White Blood Count 12.6 K/mm3 (4.5-10.0)
[2020-12-08 07:15] LABS: Potassium 2.9 mmol/L (3.4-5.0)
[2020-12-08 07:53] LABS: Alanine Aminotransferase 65 U/L (4-35); Albumin Level 2.6 g/dL (3.5-5.1); Alkaline Phosphatase 281 U/L (38-126); Anion Gap 8 mmol/L (8-16); Aspartate Amino Transferase 252 U/L (14-36); Bilirubin Direct 8.1 mg/dL (0-0.3); Bilirubin,Total 15.4 mg/dL (0.2-1.3); Blood Urea Nitrogen 4 mg/dL (7-17); Calcium 7.5 mg/dL (8.4-10.2); Carbon Dioxide 30 mmol/L (22-30); Chloride 95 mmol/L (98-107); Estimated CRCL calculation 76 ml/min; Estimated Glomerular Filt Rate > 60; Glucose 120 mg/dL (65-105); Magnesium 1.5 mg/dL (1.6-2.3); Sodium 133 mmol/L (137-145)
[2020-12-08] MEDS: PENTOXIFYLLINE 400 MG TABCR PO ×2 (08:11→16:40)
[2020-12-08] MEDS: FOLIC ACID 1 MG/0.2 ML INJ IV PUSH (08:11)
[2020-12-08] MEDS: ZINC SULFATE 220 MG CAPSULE PO (08:12)
[2020-12-08] MEDS: THIAMINE HCL 200 MG/2 ML VIAL 100 MG IV PUSH (08:12)
[2020-12-08] MEDS: SPIRONOLACTONE 50 MG TABLET PO (08:12)
[2020-12-08] MEDS: FUROSEMIDE 20 MG TABLET PO (08:12)
[2020-12-08] MEDS: PANTOPRAZOLE SODIUM IV 40 MG VIAL IV PUSH (08:12)
[2020-12-08 09:55] LABS: Salicylate < 1.0 mg/dL (2-20)
--- NOTE | 2020-12-08 09:57 | WPDANESPN ---
Anes - Prog Note Post-Op Date/Time: 12/08/20 09:57 Cardiovascular status: normal Respiratory status: normal Airway patency: baseline Mental status: baseline Post-Op hydration status: normal Vital Signs: Last Vital Signs Temp 97.5 F L 12/08/20 08:00 Pulse 86 12/08/20 08:00 Resp 16 12/08/20 08:00 BP 109/69 12/08/20 08:00 Pulse Ox 98 12/08/20 08:00 Pain Score (VAS): 210 I/O: Intake & Output 12/07/20 12/08/20 12/08/20 23:59 07:59 15:59 Intake Total 300 120 540 Output Total 0 Balance 300 120 540 Laboratory Tests 12/08/20 06:57 12/08/20 06:57 12/07/20 12/08/20 12/08/20 14:31 06:57 06:57 WBC 12.6 H RBC 2.61 L Hgb 10.1 L Hct 30.0 L MCV 114.9 H MCH 38.7 H MCHC 33.7 RDW 19.5 H Plt Count 98 L MPV 10.7 H Immature Gran % (Auto) 1.0 H Neut % (Auto) 81.1 H Lymph % (Auto) 9.8 L [place] % (Auto) 7.6 Eos % (Auto) 0.3 Baso % (Auto) 0.2 Lymph # (Auto) 1.24 [place] # (Auto) 1.0 H Eos # (Auto) 0.0 Baso # (Auto) 0.0 Abs Immat Gran (auto) 0.13 H Absolute Neuts (auto) 10.2 H Absolute Nucleated RBC 0.0 Nucleated RBC % 0.0 Sodium 133 L Potassium 2.9 L Chloride 95 L Carbon Dioxide 30 Anion Gap 8 BUN 4 L Creatinine 0.60 L Estim Creat Clear Calc 76 Estimated GFR > 60 Glucose 120 H Calcium 7.5 L Magnesium 1.5 L Total Bilirubin 15.4 H Direct Bilirubin 8.1 H AST 252 H ALT 65 H Alkaline Phosphatase 281 H Total Protein 7.0 Albumin 2.6 L Stl Occult Blood (IFOB) Negative Salicylates 12/08/20 06:57 WBC RBC Hgb Hct MCV MCH MCHC RDW Plt Count MPV Immature Gran % (Auto) Neut % (Auto) Lymph % (Auto) [place] % (Auto) Eos % (Auto) Baso % (Auto) Lymph # (Auto) [place] # (Auto) Eos # (Auto) Baso # (Auto) Abs Immat Gran (auto) Absolute Neuts (auto) Absolute Nucleated RBC Nucleated RBC % Sodium Potassium Chloride Carbon Dioxide Anion Gap BUN Creatinine Estim Creat Clear Calc Estimated GFR Glucose Calcium Magnesium Total Bilirubin Direct Bilirubin AST ALT Alkaline Phosphatase Total Protein Albumin Stl Occult Blood (IFOB) Salicylates < 1.0 L Microbiology 12/05/20 12:56 Ascites Fluid Anaerobic Culture - Preliminary 12/05/20 12:56 Ascites Fluid Aerobic Culture - Preliminary 12/05/20 11:04 Urine Clean Catch Urine Culture - Final Escherichia Coli Post-procedural complaints: none Patient Feedback: Patient satisfied with anesthetic care.
[2020-12-08] MEDS: MAGNESIUM OXIDE 200 MG TABLET PO ×2 (10:34→21:44)
[2020-12-08] MEDS: POTASSIUM CHLORIDE 20 MEQ TABLET 40 MEQ PO ×2 (10:34→16:40)
[2020-12-08] MEDS: ONDANSETRON INJ 4 MG/2 ML VIAL IV PUSH (10:34)
--- NOTE | 2020-12-08 10:54 | PM.IMPN ---
Progress Note: A&P Assessment and Plan (1) Hypotension: Code(s): I95.9 - Hypotension, unspecified Status: Acute Assessment and Plan: Improved with decreasing the diuretics -Will monitor -BP parameters placed on oxycodone -lightheadedness has resolved -I do not suspect infection to be the cause of this. Her blood cultures are negative and she does not have any fevers. (2) Acute alcoholic hepatitis: Code(s): K70.10 - Alcoholic hepatitis without ascites Status: Acute Assessment and Plan: Patient has a history of alcoholism and continues to drink occasionally which is likely the cause of her liver failure -her CT shows severe hepatic steatosis which is interesting. Ultrasound also shows this -EGD does not show esophageal varices but does show signs of portal hypertension according to Dr. Yates -Pt had autoimmune w/u in the past and was negative according to [facility] -hepatitis panel negative - SANKET, anti smooth muscle, anti trypsin, and immunoglobulin panel pending -paracentesis done 12/05 and 12/06. Still in significant pain. Will add oxy. unable to do tylenol d/t acute liver failure and toradol interacts with some of her medications. -no infection suspected but will monitor cultures -albumin slightly low. Blood pressure is also low. May consider giving albumin and diuretics -patient is alert oriented x4, no need for lactulose. -no pruritus this at this time -Spoke with [facility] and they accept the patient for transfer so she can see the hepatobiliary specalist. She is going to be admitted under Dr. Skaggs. (3) Cirrhosis: Code(s): K74.60 - Unspecified cirrhosis of liver Status: Acute Assessment and Plan: As above (4) Hyperbilirubinemia: Code(s): E80.6 - Other disorders of bilirubin metabolism Status: Acute Assessment and Plan: Likely due to liver failure (5) Transaminasemia: Code(s): R74.01 - Elevation of levels of liver transaminase levels Status: Acute Assessment and Plan: As above (6) Hypomagnesemia: Code(s): E83.42 - Hypomagnesemia Status: Acute Assessment and Plan: Magnesium 1.5 today -will replace (7) HTN (hypertension), benign: Code(s): I10 - Essential (primary) hypertension Status: Chronic Assessment and Plan: as stated above (8) Jaundice: Code(s): R17 - Unspecified jaundice Status: Acute Assessment and Plan: Secondary to her liver disease (9) Anemia: Code(s): D64.9 - Anemia, unspecified Status: Acute Assessment and Plan: Hemoglobin dropped who compared to last year -likely due to chronic disease (10) Hypokalemia: Code(s): E87.6 - Hypokalemia Status: Acute Assessment and Plan: 2.9 today due to diuretics Will do 40meq of potassium this morning and another dose at 5pm. (11) Nausea and vomiting: Code(s): R11.2 - Nausea with vomiting, unspecified Status: Acute Assessment and Plan: Improved (12) Thrombocytopenia: Code(s): D69.6 - Thrombocytopenia, unspecified Status: Acute Assessment and Plan: Likely due to liver disease . (13) Alcoholism: Code(s): F10.20 - Alcohol dependence, uncomplicated Status: Inactive Assessment and Plan: Continue folic acid and thiamine. Patient plans to quit and is tearful -Support offered. She states she is going to do this on her own. Family at bedside plans to help. (14) Diarrhea: Code(s): R19.7 - Diarrhea, unspecified Status: Acute Assessment and Plan: Likely due to liver failure -improved Subjective Date/time seen: 12/08/20 10:54 Interval history: Pt is a 45-year-old female here for liver failure. Patient was seen today and says she still has significant pain in her two lower quadrants of her abdomen. She says urinating
[2020-12-08] MEDS: oxyCODONE HCL (*CRX) 2.5 MG TAB IR PO (11:23)
--- NOTE | 2020-12-08 15:32 | WPDGIPROGNO ---
Progress Note: A&P Assessment and Plan (1) Cirrhosis, alcoholic: Code(s): K70.30 - Alcoholic cirrhosis of liver without ascites Status: Acute Assessment and Plan: nutrition support, zinc and thiamine 2g na diet (2) Alcoholic hepatitis with ascites: Code(s): K70.11 - Alcoholic hepatitis with ascites Status: Acute Assessment and Plan: DF ~ 51, started on trental no SBP but started on rocephin for possible uti primary talked to her autocad detailer at [facility] and will get transferred for ongoing care on 20mg lasix and 50mg aldactone (reduced after lightheadedness yesterday), continue to monitor (3) Thrombocytopenia: Code(s): D69.6 - Thrombocytopenia, unspecified Status: Acute Assessment and Plan: from cirrhosis (4) Abdominal pain: Code(s): R10.9 - Unspecified abdominal pain Status: Acute Subjective Date/time seen: 12/08/20 15:32 Interval history: yesterday slightly lightheaded, diuretics reduced to half dose. She is still having some abdominal pain but more comfortable today specially after paracentesis. EGD yesterday PHG, no varices. Review of Systems Review of Systems: All systems reviewed & are unremarkable except as noted in HPI and below Exam Const: General: comfortable, no acute distress and ill appearing chronically HENMT: General nose exam: Normal nares present Eyes: General: appearance normal, both eyes and all related structures Neck: Neck: supple Resp: Auscultation: clear to auscultation bilaterally Cardio: Rate: regular rate GI: GI Palp: Yes Soft to palpation, Yes Tenderness to palpation present (GI) (mild ttp, no rebound, no guarding) and No Guarding due to palpation present (GI) Percussion: Yes Fluid wave present (improved since paracentesis) Auscultation: normal bowel sounds Skin: General skin exam: jaundice Other: multiple tattoos Neuro: Speech: normal speech Motor exam (neuro): Normal motor muscle tone present throughout Extrem: General: no edema Other: decrease muscle tone Psych: Affect: Anxious affect present Objective Data Vital Signs Vital Signs: Vital Signs - 24 hr 12/07/20 16:00 12/07/20 20:00 12/07/20 20:41 Temperature 97.5 F L Pulse Rate 95 82 85 Respiratory Rate 16 Blood Pressure 99/61 L Pulse Oximetry 97 12/07/20 21:48 12/08/20 00:00 12/08/20 04:00 Temperature 97.1 F L 96.9 F L Pulse Rate 76 86 Respiratory Rate 16 16 Blood Pressure 124/86 94/64 L Pulse Oximetry 97 95 98 12/08/20 08:00 12/08/20 11:39 12/08/20 12:00 Temperature 97.5 F L 98.3 F Pulse Rate 86 94 Respiratory Rate 16 16 Blood Pressure 109/69 107/75 Pulse Oximetry 98 97 96 Intake/Output Intake/Output: Intake & Output 12/05/20 12/06/20 12/07/20 12/08/20 23:59 23:59 23:59 23:59 Intake Total 2600 400 1140 760 Output Total 1800 927 0 Balance 800 -527 1140 760 Meds/Results Medications: Active Medications Generic Name Dose Route Start Last Admin Trade Name Freq PRN Reason Stop Dose Admin Chlordiazepoxide HCl 10 mg 12/06/20 18:15 12/08/20 08:14 Chlordiazepoxide (*Crx) 10 Mg Capsule PO 10 mg Q6H PRN Administration Anxiety Folic Acid 1 mg 12/06/20 09:00 12/08/20 08:11 Folic Acid 1 Mg/0.2 Ml Inj IV PUSH 1 mg QAM NIKA Administration Furosemide 20 mg 12/08/20 09:00 12/08/20 08:12 Furosemide 20 Mg Tablet PO 20 mg DAILY NIKA Administration Ceftriaxone Sodium/Dextrose 1 gm in 50 mls @ 100 mls/hr 12/09/20 08:00 Rocephin 1 Gm/D5w 50 Ml IVPB Q24H NIKA Magnesium Oxide 200 mg 12/08/20 09:20 12/08/20 10:34 Magnesium Oxide 200 Mg Tablet PO 200 mg Q12HR NIKA Administration Naloxone HCl 0.1 mg 12/08/20 10:51 Naloxone Hcl 0.4 Mg/Ml Vial IV PUSH Q5MIN PRN narcotic overdose Ondansetron HCl 4 mg 12/05/20 14:20 12/08/20 10:34 Ondansetron Inj 4 Mg/2 Ml Vial IV PUSH 4 mg Q4H PRN Administration Nausea Oxycodone HCl 2.5 mg 0
[2020-12-08 20:01] LABS: Ceruloplasmin 24 mg/dL (18-53); Immunoglobulin A 1022 mg/dL (47-310); Immunoglobulin G 1670 mg/dL (600-1640); Immunoglobulin M 369 mg/dL (50-300)
[2020-12-08] MEDS: ZOLPIDEM TARTRATE (*CRX) 5 MG TABLET 10 MG PO (21:44)
[2020-12-09] VITALS (13 sets, daily range): BP systolic 82–122; BP diastolic 48–80; PULSE 58–109; RESP 14–18; TEMP 35.7–36.6; O2SAT 95–99
[2020-12-09] MEDS: chlordiazePOXIDE (*CRX) 10 MG CAPSULE PO ×2 (01:33→16:07)
[2020-12-09 06:25] LABS: Basophils Percent Auto 0.2 % (0.2-1.2); Eosinophils Absolute Auto 0.1 K/mm3 (0-0.3); Eosinophils Percent Auto 0.9 % (0-4.4); Hematocrit 21.9 % (37.0-47.0); Hemoglobin 7.5 g/dL (12.0-15.0); Immature Granulocyte Absolute 0.04 K/mm3 (0.00-0.031); Immature Granulocyte Percent A 0.5 % (0-0.5); Lymphocytes Absolute Auto 1.15 K/mm3 (0.9-3.2); Mean Corpuscular HGB Conc 34.2 g/dl (32-36); Mean Corpuscular Hemoglobin 39.3 pg (26-34); Mean Corpuscular Volume 114.7 fl (80-100); Mean Platelet Volume 10.8 fl (7.4-10.4); Monocytes Absolute Auto 0.7 K/mm3 (0.1-0.6); Monocytes Percent Auto 8.2 % (2.6-8.5); Neutrophils Absolute Auto 6.2 K/mm3 (1.3-6.7); Neutrophils Percent Auto 76.2 % (45.5-73.1); Platelet Count Result 80 k/mm3 (150-375); Red Blood Count 1.91 M/mm3 (4.2-5.4); Red Cell Distribution Width 19.3 % (11.5-14.5); White Blood Count 8.2 K/mm3 (4.5-10.0)
[2020-12-09 06:56] LABS: Alanine Aminotransferase 61 U/L (4-35); Albumin Level 2.2 g/dL (3.5-5.1); Alkaline Phosphatase 227 U/L (38-126); Anion Gap 4 mmol/L (8-16); Aspartate Amino Transferase 213 U/L (14-36); Bilirubin Direct 6.4 mg/dL (0-0.3); Bilirubin,Total 12.4 mg/dL (0.2-1.3); Blood Urea Nitrogen 5 mg/dL (7-17); CRP 4.7 mg/dL (<1.0); Calcium 7.3 mg/dL (8.4-10.2); Carbon Dioxide 29 mmol/L (22-30); Chloride 97 mmol/L (98-107); Estimated CRCL calculation 91 ml/min; Estimated Glomerular Filt Rate > 60; Glucose 85 mg/dL (65-105); Magnesium 1.5 mg/dL (1.6-2.3); Potassium 3.6 mmol/L (3.4-5.0); Sodium 130 mmol/L (137-145)
[2020-12-09 07:16] LABS: INR 1.9
[2020-12-09 07:55] LABS: Glucose Peritoneal Fluid 77 mg/dL; Total Protein Peritoneal Fluid <3.0 g/dL
[2020-12-09] MEDS: MAGNESIUM OXIDE 200 MG TABLET PO ×2 (08:10→22:06)
[2020-12-09] MEDS: ZINC SULFATE 220 MG CAPSULE PO (08:10)
[2020-12-09] MEDS: PENTOXIFYLLINE 400 MG TABCR PO ×2 (08:10→12:45)
[2020-12-09] MEDS: PANTOPRAZOLE SODIUM IV 40 MG VIAL IV PUSH (08:10)
[2020-12-09] MEDS: THIAMINE HCL 200 MG/2 ML VIAL 100 MG IV PUSH (08:11)
[2020-12-09] MEDS: SPIRONOLACTONE 50 MG TABLET PO (08:12)
[2020-12-09] MEDS: FUROSEMIDE 20 MG TABLET PO (08:13)
[2020-12-09] MEDS: FOLIC ACID 1 MG/0.2 ML INJ IV PUSH (08:14)
[2020-12-09] MEDS: POTASSIUM CHLORIDE 20 MEQ TABLET PO (08:19)
[2020-12-09] MEDS: MAGNESIUM SULF 2 GM/WATER 50ML 2 GM/50 ML BAG IVPB (08:34)
[2020-12-09] MEDS: oxyCODONE HCL (*CRX) 2.5 MG TAB IR PO (08:39)
[2020-12-09 13:15] LABS: Hematocrit 27.4 % (37.0-47.0); Hemoglobin 9.4 g/dL (12.0-15.0)
--- NOTE | 2020-12-09 15:22 | PC.NURSE ---
On 12/09/20, the student, [ Reilly Henry], provided care and completed [employer] documentation on this patient. I have reviewed the student's documentation and agree with the findings.RN aware of vital signs taken by student
--- NOTE | 2020-12-09 15:44 | WPDGIPROGNO ---
Progress Note: A&P Assessment and Plan (1) Cirrhosis, alcoholic: Code(s): K70.30 - Alcoholic cirrhosis of liver without ascites Status: Acute Assessment and Plan: nutrition support, zinc and thiamine 2g na diet (2) Alcoholic hepatitis with ascites: Code(s): K70.11 - Alcoholic hepatitis with ascites Status: Acute Assessment and Plan: DF on admission was 51 and started on trental but she is nauseous now, will discontinue to see if nausea gets better bili down to 12 from 15 no SBP but started on rocephin for uti (E coli) primary talked to her contract negotiation specialist at [facility] and plan is to transfer for ongoing care on 20mg lasix and 50mg aldactone (reduced after lightheadedness), continue to monitor (3) Nausea and vomiting: Code(s): R11.2 - Nausea with vomiting, unspecified Status: Acute Assessment and Plan: antiemetics prn encourage to eat discontinue trental (4) Thrombocytopenia: Code(s): D69.6 - Thrombocytopenia, unspecified Status: Acute Assessment and Plan: from cirrhosis (5) Abdominal pain: Code(s): R10.9 - Unspecified abdominal pain Status: Acute (6) Diarrhea: Code(s): R19.7 - Diarrhea, unspecified Status: Acute Assessment and Plan: stool cultures negative continue supportive care Subjective Date/time seen: 12/09/20 15:44 Interval history: she is still complaining of nausea and some diarrhea, less abdominal pain Review of Systems Review of Systems: All systems reviewed & are unremarkable except as noted in HPI and below Exam Const: General: comfortable, no acute distress and ill appearing chronically Other: jaundice HENMT: General nose exam: Normal nares present Eyes: General: appearance normal, both eyes and all related structures Neck: Neck: supple Resp: Auscultation: clear to auscultation bilaterally Cardio: Rate: regular rate GI: GI Palp: Yes Soft to palpation, Yes Tenderness to palpation present (GI) (mild ttp, no rebound, no guarding) and No Guarding due to palpation present (GI) Percussion: Yes Fluid wave present (improved since paracentesis) Auscultation: normal bowel sounds Skin: General skin exam: jaundice Other: multiple tattoos Neuro: Speech: normal speech Motor exam (neuro): Normal motor muscle tone present throughout Extrem: General: no edema Other: decrease muscle tone Psych: Affect: Anxious affect present Objective Data Vital Signs Vital Signs: Vital Signs - 24 hr 12/08/20 15:58 12/08/20 21:42 12/08/20 23:12 Temperature 98.2 F 97.0 F L Pulse Rate 93 89 Respiratory Rate 16 20 Blood Pressure 110/74 92/56 L Pulse Oximetry 96 98 97 12/09/20 01:50 12/09/20 06:51 12/09/20 07:56 Temperature 97.5 F L 97.3 F L 96.2 F L Pulse Rate 60 58 L 80 Respiratory Rate 14 14 14 Blood Pressure 95/63 L 98/62 L 88/69 L Pulse Oximetry 96 97 99 12/09/20 08:14 12/09/20 08:35 12/09/20 11:17 Temperature 97.3 F L Pulse Rate 109 H Respiratory Rate 14 18 Blood Pressure 100/72 105/74 Pulse Oximetry 99 99 12/09/20 12:00 12/09/20 13:52 Temperature 97.9 F 96.3 F L Pulse Rate 100 99 Respiratory Rate 16 14 Blood Pressure 111/80 101/68 Pulse Oximetry 97 95 Intake/Output Intake/Output: Intake & Output 12/06/20 12/07/20 12/08/20 12/09/20 23:59 23:59 23:59 23:59 Intake Total 400 1140 1100 500 Output Total 927 100 550 Balance -527 1140 1000 -50 Meds/Results Medications: Active Medications Generic Name Dose Route Start Last Admin Trade Name Freq PRN Reason Stop Dose Admin Chlordiazepoxide HCl 10 mg 12/06/20 18:15 12/09/20 01:33 Chlordiazepoxide (*Crx) 10 Mg Capsule PO 10 mg Q6H PRN Administration Anxiety Folic Acid 1 mg 12/06/20 09:00 12/09/20 08:14 Folic Acid 1 Mg/0.2 Ml Inj IV PUSH 1 mg QAM NIKA Administration Furosemide 20 mg 12/08/20 09:00 12/09/20 08:13 Furosemide 20 Mg Tablet PO 20 mg DAILY NIKA Administra
--- NOTE | 2020-12-09 16:12 | PM.IMPN ---
Progress Note: A&P Assessment and Plan (1) Hypotension: Code(s): I95.9 - Hypotension, unspecified Status: Acute Assessment and Plan: Improved with decreasing the diuretics -Will monitor -BP parameters placed on oxycodone -lightheadedness has resolved -I do not suspect infection to be the cause of this. Her blood cultures are negative and she does not have any fevers. (2) Acute alcoholic hepatitis: Code(s): K70.10 - Alcoholic hepatitis without ascites Status: Acute Assessment and Plan: Patient has a history of alcoholism and continues to drink occasionally which is likely the cause of her liver failure -her CT shows severe hepatic steatosis which is interesting. Ultrasound also shows this -EGD does not show esophageal varices but does show signs of portal hypertension according to Dr. Yates -Pt had autoimmune w/u in the past and was negative according to [facility] -hepatitis panel negative - SANKET, anti smooth muscle, anti trypsin, and immunoglobulin panel pending -paracentesis done 12/05 and 12/06. Still in significant pain. Will add oxy. unable to do tylenol d/t acute liver failure and toradol interacts with some of her medications. -no infection suspected but will monitor cultures -patient is alert oriented x4, no need for lactulose. -no pruritus this at this time -Spoke with [facility] 12/08/20 and they accept the patient for transfer so she can see the hepatobiliary specalist. She is going to be admitted under Dr. Skaggs. still awaiting bed (3) Cirrhosis: Code(s): K74.60 - Unspecified cirrhosis of liver Status: Acute Assessment and Plan: As above (4) Hyperbilirubinemia: Code(s): E80.6 - Other disorders of bilirubin metabolism Status: Acute Assessment and Plan: Likely due to liver failure (5) Transaminasemia: Code(s): R74.01 - Elevation of levels of liver transaminase levels Status: Acute Assessment and Plan: As above (6) Hypomagnesemia: Code(s): E83.42 - Hypomagnesemia Status: Acute Assessment and Plan: Magnesium 1.5 today -will replace again (7) HTN (hypertension), benign: Code(s): I10 - Essential (primary) hypertension Status: Chronic Assessment and Plan: as stated above (8) Jaundice: Code(s): R17 - Unspecified jaundice Status: Acute Assessment and Plan: Secondary to her liver disease (9) Anemia: Code(s): D64.9 - Anemia, unspecified Status: Acute Assessment and Plan: Hgb down this morning but suspect lab error since repeat this afternoon is back to normal (10) Hypokalemia: Code(s): E87.6 - Hypokalemia Status: Acute Assessment and Plan: 3.6 today -monitor while on diuretics and continue to replace mg (11) Nausea and vomiting: Code(s): R11.2 - Nausea with vomiting, unspecified Status: Acute Assessment and Plan: Improved (12) Thrombocytopenia: Code(s): D69.6 - Thrombocytopenia, unspecified Status: Acute Assessment and Plan: Likely due to liver disease . (13) Alcoholism: Code(s): F10.20 - Alcohol dependence, uncomplicated Status: Inactive Assessment and Plan: Continue folic acid and thiamine. Patient plans to quit and is tearful -Support offered. She states she is going to do this on her own. Family at bedside plans to help. (14) Diarrhea: Code(s): R19.7 - Diarrhea, unspecified Status: Acute Assessment and Plan: Likely due to liver failure -improved Subjective Date/time seen: 12/09/20 16:12 Interval history: Pt is a 45-year-old female here for liver failure. Patient was seen today and is doing a tad better than yesterday. She continues to have abdominal pain which is less with the medication and now a 5/10. Her nausea is improving and she was able to eat a
[2020-12-09 21:29] LABS: Actin Antibody (IgG) <20 U (<20)
[2020-12-09] MEDS: ZOLPIDEM TARTRATE (*CRX) 5 MG TABLET 10 MG PO (22:06)
[2020-12-09] MEDS: ONDANSETRON INJ 4 MG/2 ML VIAL IV PUSH (22:06)
[2020-12-09] MEDS: SODIUM CHLORIDE 0.9% IV 250 ML 125 ML IV CONT (22:12)
[2020-12-10] VITALS (8 sets, daily range): BP systolic 85–106; BP diastolic 50–76; PULSE 80–94; RESP 14–16; TEMP 36.1–36.8; O2SAT 97–98
[2020-12-10 06:06] LABS: INR 1.7; Prothrombin Time 20.2 Seconds (11.1-14.7)
[2020-12-10 06:11] LABS: Hematocrit 17.8 % (37.0-47.0); Hemoglobin 5.8 g/dL (12.0-15.0)
[2020-12-10 06:14] LABS: Alanine Aminotransferase 68 U/L (4-35); Albumin Level 2.3 g/dL (3.5-5.1); Alkaline Phosphatase 249 U/L (38-126); Anion Gap 5 mmol/L (8-16); Aspartate Amino Transferase 220 U/L (14-36); Bilirubin Direct 7.6 mg/dL (0-0.3); Bilirubin,Total 14.4 mg/dL (0.2-1.3); Blood Urea Nitrogen 6 mg/dL (7-17); Calcium 7.5 mg/dL (8.4-10.2); Carbon Dioxide 28 mmol/L (22-30); Chloride 98 mmol/L (98-107); Estimated CRCL calculation 91 ml/min; Estimated Glomerular Filt Rate > 60; Glucose 84 mg/dL (65-105); Magnesium 1.8 mg/dL (1.6-2.3); Potassium 3.7 mmol/L (3.4-5.0); Sodium 131 mmol/L (137-145)
[2020-12-10 07:00] LABS: Hematocrit 26.7 % (37.0-47.0)
[2020-12-10] MEDS: FUROSEMIDE 20 MG TABLET PO (08:53)
[2020-12-10] MEDS: PANTOPRAZOLE SODIUM IV 40 MG VIAL IV PUSH (08:53)
[2020-12-10] MEDS: FOLIC ACID 1 MG/0.2 ML INJ IV PUSH (08:53)
[2020-12-10] MEDS: chlordiazePOXIDE (*CRX) 10 MG CAPSULE PO (08:53)
[2020-12-10] MEDS: SPIRONOLACTONE 50 MG TABLET PO (08:54)
[2020-12-10] MEDS: ZINC SULFATE 220 MG CAPSULE PO (08:54)
[2020-12-10] MEDS: THIAMINE HCL 200 MG/2 ML VIAL 100 MG IV PUSH (08:54)
[2020-12-10] MEDS: MAGNESIUM OXIDE 200 MG TABLET PO ×2 (08:54→20:44)
--- NOTE | 2020-12-10 13:53 | PM.IMPN ---
Progress Note: A&P Assessment and Plan (1) Hypotension: Code(s): I95.9 - Hypotension, unspecified Status: Acute Assessment and Plan: Improved with decreasing the diuretics -Will monitor -BP parameters placed on oxycodone -lightheadedness has resolved -I do not suspect infection to be the cause of this. Her blood cultures are negative and she does not have any fevers. (2) Acute alcoholic hepatitis: Code(s): K70.10 - Alcoholic hepatitis without ascites Status: Acute Assessment and Plan: Patient has a history of alcoholism and continues to drink occasionally which is likely the cause of her liver failure -her CT shows severe hepatic steatosis which is interesting. Ultrasound also shows this -EGD does not show esophageal varices but does show signs of portal hypertension according to Dr. Yates -Pt had autoimmune w/u in the past and was negative according to [facility] -hepatitis panel negative - SANKET, anti smooth muscle, anti trypsin, and immunoglobulin panel pending -paracentesis done 12/05 and 12/06. Still in significant pain. Will add oxy. unable to do tylenol d/t acute liver failure and toradol interacts with some of her medications. -no infection suspected but will monitor cultures -patient is alert oriented x4, no need for lactulose. -no pruritus this at this time -Spoke with [facility] 12/08/20 and they accept the patient for transfer so she can see the hepatobiliary specalist. She is going to be admitted under Dr. Skaggs. still awaiting bed, contacted 12/10/20 (3) Cirrhosis: Code(s): K74.60 - Unspecified cirrhosis of liver Status: Acute Assessment and Plan: As above (4) Hyperbilirubinemia: Code(s): E80.6 - Other disorders of bilirubin metabolism Status: Acute Assessment and Plan: Likely due to liver failure (5) Transaminasemia: Code(s): R74.01 - Elevation of levels of liver transaminase levels Status: Acute Assessment and Plan: As above (6) Hypomagnesemia: Code(s): E83.42 - Hypomagnesemia Status: Acute Assessment and Plan: Magnesium normal today -will monitor with daily labs (7) HTN (hypertension), benign: Code(s): I10 - Essential (primary) hypertension Status: Chronic Assessment and Plan: as stated above (8) Jaundice: Code(s): R17 - Unspecified jaundice Status: Acute Assessment and Plan: Secondary to her liver disease (9) Anemia: Code(s): D64.9 - Anemia, unspecified Status: Acute Assessment and Plan: Hgb down this morning but suspect lab error since repeat this afternoon is back to normal (10) Hypokalemia: Code(s): E87.6 - Hypokalemia Status: Acute Assessment and Plan: 3.7 today -monitor while on diuretics and continue to replace mg as needed (11) Nausea and vomiting: Code(s): R11.2 - Nausea with vomiting, unspecified Status: Acute Assessment and Plan: Improved -add tums and carafate as she is having burning in her stomach. Will contiue PPI (12) Thrombocytopenia: Code(s): D69.6 - Thrombocytopenia, unspecified Status: Acute Assessment and Plan: Likely due to liver disease . (13) Alcoholism: Code(s): F10.20 - Alcohol dependence, uncomplicated Status: Inactive Assessment and Plan: Continue folic acid and thiamine. Patient plans to quit and is tearful -Support offered. She states she is going to do this on her own. Family at bedside plans to help. (14) Diarrhea: Code(s): R19.7 - Diarrhea, unspecified Status: Acute Assessment and Plan: Likely due to liver failure -improved Subjective Date/time seen: 12/10/20 13:53 Interval history: Pt is a 45-year-old female here for liver failure. Patient was seen today and is doing okay. She tells me she has not been walking the
[2020-12-10] MEDS: SUCRALFATE SUSP 100 MG/ML 10 ML UDC 1000 MG PO ×2 (15:50→20:44)
[2020-12-10] MEDS: ZOLPIDEM TARTRATE (*CRX) 5 MG TABLET 10 MG PO (20:44)
--- NOTE | 2020-12-10 21:27 | PC.NURSE ---
report called to Leticia ABERNATHY at [facility] [phone] @ 2128. Pt going to room 701
--- NOTE | 2020-12-10 21:53 | PC.NURSE ---
213-Marc called for pt transfer to [facility]. ETA 2206
--- NOTE | 2020-12-11 10:06 | PM.TDS ---
Transfer Discharge Sum: Prov Provider Date of admission: 12/05/20 17:55 Primary care physician: Rodrigo Watts Admitting clinician: Sara Castro MD Consults: 12/05/20 14:22 Consult to Physician Routine Comment: Consulting Provider: Jimmy Hoyt Reason for consultation: cirrhosis, ascites Has provider been notified: Yes DS: Admitting Diagnosis Admitting Diagnosis Admitting Diagnosis: acute liver failure DS: Discharge Diagnosis Discharge Diagnosis (1) Hypotension: Code(s): I95.9 - Hypotension, unspecified Status: Acute Assessment and Plan: Improved with decreasing the diuretics -BP parameters placed on oxycodone -lightheadedness has resolved -I do not suspect infection to be the cause of this. Her blood cultures are negative and she does not have any fevers. -102/60 at the time of transfer (2) Acute alcoholic hepatitis: Code(s): K70.10 - Alcoholic hepatitis without ascites Status: Acute Assessment and Plan: Patient has a history of alcoholism and continues to drink occasionally which is likely the cause of her liver failure -her CT shows severe hepatic steatosis which is interesting. Ultrasound also shows this -EGD does not show esophageal varices but does show signs of portal hypertension according to Dr. Yates -Pt had autoimmune w/u in the past and was negative according to [facility] -hepatitis panel negative - SANKET, anti smooth muscle, anti trypsin, and immunoglobulin panel pending -paracentesis done 12/05 and 12/06. Still in significant pain. Will add oxy. unable to do tylenol d/t acute liver failure and Toradol interacts with some of her medications. -no infection suspected but will monitor cultures -patient is alert oriented x4, no need for lactulose. -no pruritus this at this time -[facility]fered to [facility] 12[facility] where her liver specialist is (3) Cirrhosis: Code(s): K74.60 - Unspecified cirrhosis of liver Status: Acute Assessment and Plan: As above (4) Hyperbilirubinemia: Code(s): E80.6 - Other disorders of bilirubin metabolism Status: Acute Assessment and Plan: Likely due to liver failure (5) Transaminasemia: Code(s): R74.01 - Elevation of levels of liver transaminase levels Status: Acute Assessment and Plan: As above (6) Hypomagnesemia: Code(s): E83.42 - Hypomagnesemia Status: Acute Assessment and Plan: Magnesium normal day of transfer (7) HTN (hypertension), benign: Code(s): I10 - Essential (primary) hypertension Status: Chronic Assessment and Plan: as stated above (8) Jaundice: Code(s): R17 - Unspecified jaundice Status: Acute Assessment and Plan: Secondary to her liver disease (9) Anemia: Code(s): D64.9 - Anemia, unspecified Status: Acute Assessment and Plan: Hgb stable 9.0 (10) Hypokalemia: Code(s): E87.6 - Hypokalemia Status: Acute Assessment and Plan: 3.7 day of discharge -monitor while on diuretics and continue to replace mg as needed (11) Nausea and vomiting: Code(s): R11.2 - Nausea with vomiting, unspecified Status: Acute Assessment and Plan: Improved -added tums and carafate as she is having burning in her stomach. Will continue PPI (12) Thrombocytopenia: Code(s): D69.6 - Thrombocytopenia, unspecified Status: Acute Assessment and Plan: Likely due to liver disease . (13) Alcoholism: Code(s): F10.20 - Alcohol dependence, uncomplicated Status: Inactive Assessment and Plan: Continue folic acid and thiamine. Patient plans to quit and is tearful -Support offered. She states she is going to do this on her own. Family at bedside plans to help. (14) Diarrhea: Code(s): R19.7 - Diarrhea, unspecified Status: Acute
[2020-12-11 13:35] LABS: Amylase Peritoneal Fluid <10 U/L
[2020-12-11 14:42] LABS: LDH Peritoneal Fluid 26 U/L (<63)
[2020-12-12 13:26] LABS: Albumin Peritoneal Fluid 0.4 g/dL
[2020-12-13 11:10] LABS: Mitochondrial (M2) Ab (IgG) <=20.0 U (<=20.0)
== END 2020-12-10 22:00 | disposition short-term general hospital (02) | DRG 280 ==
LOC: ANHED 14:20 → ANH2MED 14:58
PROVIDERS: Internal Medicine; Internal Medicine Gastroenterology; Nurse Practitioner; Admitting Provider Internal Medicine; Emergency Provider General Practice; Visit Provider Physician Assistant
PROC: 0DJ08ZZ Inspection of Upper Intestinal Tract, Via Natural or Artificial Opening Endoscopic (ICD-10-PCS; CPT 43235; principal; 2020-12-07 10:45)
DX: K70.11 Alcoholic hepatitis with ascites (principal); K70.31 Alcoholic cirrhosis of liver with ascites; K70.40 Alcoholic hepatic failure without coma; F10.20 Alcohol dependence, uncomplicated; I95.9 Hypotension, unspecified; N39.0 Urinary tract infection, site not specified; B96.20 Unspecified Escherichia coli [E. coli] as the cause of diseases classified elsewhere; K29.70 Gastritis, unspecified, without bleeding; K44.9 Diaphragmatic hernia without obstruction or gangrene; F17.210 Nicotine dependence, cigarettes, uncomplicated; E80.6 Other disorders of bilirubin metabolism; E83.42 Hypomagnesemia; I10 Essential (primary) hypertension; D64.9 Anemia, unspecified; E87.6 Hypokalemia; R19.7 Diarrhea, unspecified; L40.9 Psoriasis, unspecified; Z79.899 Other long term (current) drug therapy
CPT/HCPCS: 36415; 49083; 71045; 74176; 74177; 76705; 80048; 80053; 80074; 80076; 80307; 81001; 81025; 82042; 82104; 82140; 82150; 82248; 82274; 82390; 82607; 82728; 82746; 82784; 82945; 83516; 83520; 83540; 83550; 83615; 83690; 83735; 84157; 84439; 84443; 84480; 85014; 85018; 85025; 85027; 85055; 85610; 85730; 86038; 86140; 86850; 86880; 86900; 86901; 87040; 87045; 87046; 87070; 87075; 87077; 87086; 87088; 87186; 87205; 87427; 88108; 89051; 96361; 96365; 96366; 96367; 96368; 96375; 99285; A9270; C9113; G0378; G0379; J0696; J2001; J2405; J2704; J3411; J3475; J3480; J7030; J7050; J7120; Q9967

== ENCOUNTER 2021-07-12 15:52 | Emergency (ER) | payer OTHER, SELFPAY ==
[2021-07-12 16:51] LABS: Alanine Aminotransferase 44 U/L (4-35); Albumin Level 3.1 g/dL (3.5-5.1); Alkaline Phosphatase 310 U/L (38-126); Anion Gap 13 mmol/L (8-16); Aspartate Amino Transferase 281 U/L (14-36); Bilirubin,Total 9.5 mg/dL (0.2-1.3); Blood Urea Nitrogen 5 mg/dL (7-17); Calcium 7.2 mg/dL (8.4-10.2); Carbon Dioxide 27 mmol/L (22-30); Chloride 100 mmol/L (98-107); Estimated Glomerular Filt Rate > 60; Glucose 136 mg/dL (65-110); Lipase 44 U/L (23-300); Potassium 2.4 mmol/L (3.4-5.0); Sodium 140 mmol/L (137-145)
[2021-07-12 16:59] LABS: Add Urine Microscopic? YES; Appearance Urine Clear (Clear); Bilirubin Urine 2+ (Negative); Blood Urine Negative (Negative); Color Urine Amber (Yellow); Glucose Urine UA Negative (Negative); Ketones Urine Negative (Negative); Leukocyte Esterase Ur Negative LEU/UL (Negative); Mucus Urine Heavy /lpf; Nitrate Urine Positive (Negative); Protein Urine 2+ mg/dL (Negative); RBC Urine 0-2 /hpf (0-2); Specific Grav Ur 1.029 (1.001-1.035); Squamous Epithelial Cell Urine Many /hpf (Few)
--- NOTE | 2021-07-12 17:11 | PC.NURSE ---
1707- CRITICAL POTASSIUM RECEIVED AND REPORTED TO DR PAK. ATTEMPTED TO CONTACT @[phone] NO ANSWER LEFT MESSAGE TO RETURN TO ED AND RETURN CALL.
== END 2021-07-13 04:37 | disposition left against medical advice (07) ==
PROVIDERS: Emergency Provider Emergency Medicine
DX: Z53.21 Procedure and treatment not carried out due to patient leaving prior to being seen by health care provider (principal)
CPT/HCPCS: 36415; 80053; 81001; 83690; 99199

== ENCOUNTER 2021-07-24 16:58 | Inpatient (IN) | payer OTHER, SELFPAY ==
--- NOTE | ~2021-07-24 | CT_ITS ---
EXAMINATION: CT abdomen pelvis w con INDICATION: Upper abdominal pain, pancreatitis TECHNIQUE: Computed tomographic images of the abdomen and pelvis were obtained after the administrati on of 100 cc of Omnipaque 350 intravenous contrast. The dose-length product (DLP) was 307.30 mGy-cm. Automated exposure control and iterative reconstruction technique were employed. COMPARISON: 12/06/2020 FINDINGS: Minimal dependent atelectasis is present in the lung bases. The heart size is normal. There is a large volume of ascites. The liver is diffusely low in attenuation when compared with the splee n, consistent with hepatic steatosis. The spleen, pancreas, gallbladder, and adrenal glands are unrem arkable. The kidneys are normal. No pathologically enlarged abdominal or pelvic lymph nodes are ident ified. There is no free intraperitoneal gas or evidence of bowel obstruction. IMPRESSION: 1. Large volume of ascites. 2. Diffuse hepatic steatosis. Reviewed, dictated and finalized at location A.
--- NOTE | ~2021-07-24 | US_ITS ---
EXAMINATION: US abdomen limited DATE: 07/26/2021 08:33 INDICATION: Abnormal liver function tests. TECHNIQUE: Multiple grayscale and Doppler ultrasound images of the abdomen were obtained. COMPARISON: CT abdomen and pelvis 07/24/2021 FINDINGS: The liver demonstrates coarsened echotexture, steatosis, and surface nodularity, consistent with cirrhosis. There is normal flow in main portal vein. The gallbladder is normal in size. No gall stones or gallbladder wall thickening. The common duct is normal and measures 4 mm. There is a small volume of ascites. IMPRESSION: 1. Cirrhosis of the liver. 2. Small volume of ascites. Reviewed, dictated and finalized at location A.
--- NOTE | ~2021-07-24 | US_ITS ---
EXAMINATION: US paracentesis abd w/image DATE: 07/27/2021 15:00 INDICATION: Ascites. TECHNIQUE: The procedure and its risks, benefits, and alternatives were discussed with the patient. P otential risks discussed included bleeding and infection. The skin was prepped and draped in sterile fashion. 1% lidocaine was used for local anesthesia. Under ultrasound guidance, a 5 Fr catheter with trochar was advanced into the ascites in the right lower quadrant. Fluid was aspirated. The catheter was removed, and a dressing was applied. There were no immediate complications. FINDINGS: Ultrasound images demonstrate ascites and the catheter within the fluid. IMPRESSION: 1. Successful ultrasound-guided paracentesis yielding 450 mL of yellow fluid. Reviewed, dictated and finalized at location A.
--- NOTE | ~2021-07-24 | US_ITS ---
EXAMINATION: US paracentesis abd w/image DATE: 07/25/2021 13:05 INDICATION: Ascites. TECHNIQUE: The procedure and its risks, benefits, and alternatives were discussed with the patient. P otential risks discussed included bleeding and infection. The skin was prepped and draped in sterile fashion. 1% lidocaine was used for local anesthesia. Under ultrasound guidance, a 5 Fr catheter with trochar was advanced into the ascites in the left lower quadrant. Fluid was aspirated. The catheter w as removed, and a dressing was applied. There were no immediate complications. FINDINGS: Ultrasound images demonstrate ascites and the catheter within the fluid. IMPRESSION: 1. Successful ultrasound-guided paracentesis yielding 3250 mL of clear, yellow fluid. Reviewed, dictated and finalized at location A.
[2021-07-24 17:01] VITALS: BP 118/96; PULSE 112; RESP 18; TEMP 37.1; O2SAT 98
--- NOTE | 2021-07-24 17:28 | ED.ABDPAIN ---
HPI - Abdominal Pain General Chief Complaint: Abdominal Pain Stated Complaint: ABD PAIN-RECENT PARACENTESIS Time Seen by Provider: 07/24/21 17:28 Source: patient, EMS and RN notes reviewed Limitations: no limitations History of Present Illness HPI narrative: Patient 45 years old white female presents with diffuse abdominal pain and distention. History of liver cirrhosis secondary to alcoholism. Status post paracentesis 2 weeks ago at [facility]. Patient denies having alcohol lately. Also denies any fever, chills, nausea, vomiting. Related Data Home Medications Medication Instructions Recorded Confirmed amlodipine 5 mg PO DAILY 12/05/20 12/05/20 atenolol 25 mg PO DAILY 12/05/20 12/05/20 lisinopril 20 mg PO DAILY 12/05/20 12/05/20 zolpidem [Ambien] 10 mg PO HS PRN 12/05/20 12/05/20 Allergies Allergy/AdvReac Type Severity Reaction Status Date / Time No Known Allergies Allergy Verified 12/07/20 09:45 Review of Systems Review of Systems: CONSTITUTIONAL: Denies fever, chills, or sweats. EYES: Denies visual changes, redness, or discharge. ENT: Denies rhinorrhea, congestion, sore throat, or otalgia. CARDIOVASCULAR: Denies chest pain, palpitations, or edema. RESPIRATORY: Denies cough or dyspnea. GASTROINTESTINAL: Denies abdominal pain, nausea, vomiting, or diarrhea. GENITOURINARY: Denies dysuria or hematuria. SKIN: Denies rash or itching. MUSCULOSKELETAL: Denies back pain, joint pain, or myalgia. NEUROLOGIC: Denies headache, numbness, or weakness. PSYCHIATRIC: Denies anxiety or depression. [facility] Past Medical History Medical History Abdominal pain Alcoholic hepatitis with ascites Alcoholism Anxiety Cirrhosis, alcoholic Depression H/O: HTN (hypertension) HTN (hypertension), benign Psoriasis Surgical History Surgical History No history of previous surgery Family History Family History Mother Lung cancer Hypertension Depression Anxiety Social History Social History Social History: The patient stated that she has not smoked in the last week and that she is quitting. The patient has 3 children. 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 The patient lives with her who is her durable power district attorney for healthcare. The patient desires to be a full code. The patient stated that she smoked marijuana long time ago but no longer uses it. She states that she was a heavy drinker 10 years ago but quit drinking 10 years ago and only occasionally has an alcoholic beverage. She likes to drink beer Smoking packs per day: 0.5 Smoking cigarettes per day: 10.0 Years smoked: 20 Smoking pack-years: 10.00 Smoking status: Current every day smoker Tobacco type: cigarettes Alcohol intake: former Substance use: former Substance use type: marijuana Gender identity (if verbalized by the patient): Female Spiritual care concerns: No Exam Narrative: General appearance: Well-developed, malnourished, cachectic Skin: Normal color Head: Normocephalic, nontraumatic Eyes: Clear conjunctiva ENT: Oropharynx normal, ears normal, nose normal Neck: Supple, nontender Chest and respiratory: Airway patent, no respiratory distress, no accessory muscle use Heart: Regular rate/rhythm Abdomen: Severe distention of the abdomen, diffusely tender, tense ascites Vascular: Normal peripheral pulses, normal capillary refill. 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
[2021-07-24] MEDS: SODIUM CHLORIDE 0.9% IV 1,000 ML 999 ML IV CONT (18:12)
[2021-07-24 18:15] LABS: Basophils Absolute Auto 0.2 K/mm3 (0.0-0.1); Basophils Percent Auto 1.5 % (0.2-1.2); Eosinophils Absolute Auto 0.1 K/mm3 (0-0.3); Eosinophils Percent Auto 0.8 % (0-4.4); Hematocrit 27.5 % (37.0-47.0); Hemoglobin 8.6 g/dL (12.0-15.0); Immature Granulocyte Absolute 0.18 K/mm3 (0.00-0.031); Immature Granulocyte Percent A 1.3 % (0-0.5); Lymphocytes Absolute Auto 2.99 K/mm3 (0.9-3.2); Lymphocytes Percent Auto 22.3 % (18.3-44.2); Mean Corpuscular HGB Conc 31.3 g/dl (32-36); Mean Corpuscular Hemoglobin 37.2 pg (26-34); Mean Platelet Volume 8.6 fl (7.4-10.4); Monocytes Percent Auto 7.5 % (2.6-8.5); Neutrophils Absolute Auto 8.9 K/mm3 (1.3-6.7); Neutrophils Percent Auto 66.6 % (45.5-73.1); Platelet Count Result 171 k/mm3 (150-375); Red Blood Count 2.31 M/mm3 (4.2-5.4); Red Cell Distribution Width 14.7 % (11.5-14.5); White Blood Count 13.4 K/mm3 (4.5-10.0)
[2021-07-24 18:30] LABS: Alanine Aminotransferase 45 U/L (4-35); Albumin Level 2.8 g/dL (3.5-5.1); Alkaline Phosphatase 311 U/L (38-126); Anion Gap 11 mmol/L (8-16); Aspartate Amino Transferase 403 U/L (14-36); Bilirubin,Total 6.8 mg/dL (0.2-1.3); Blood Urea Nitrogen 3 mg/dL (7-17); Calcium 7.6 mg/dL (8.4-10.2); Carbon Dioxide 23 mmol/L (22-30); Chloride 109 mmol/L (98-107); Estimated CRCL calculation 83 ml/min; Estimated Glomerular Filt Rate > 60; Glucose 117 mg/dL (65-110); Lipase 113 U/L (23-300); Sodium 143 mmol/L (137-145)
[2021-07-24 19:04] LABS: INR 1.6; Prothrombin Time 18.6 Seconds (11.1-14.7)
[2021-07-24 19:27] LABS: Ethanol 331 mg/dL (<10)
[2021-07-24] MEDS: POTASSIUM CHLORIDE 20 MEQ TABLET 40 MEQ PO (19:36)
[2021-07-24 19:41] LABS: Add Urine Microscopic? YES; Appearance Urine Cloudy (Clear); Bacteria Urine Trace /hpf; Bilirubin Urine Negative (Negative); Blood Urine Negative (Negative); Color Urine Amber (Yellow); Glucose Urine UA Negative (Negative); Ketones Urine Negative (Negative); Leukocyte Esterase Ur 1+ LEU/UL (Negative); Mucus Urine Rare /lpf; Nitrate Urine Positive (Negative); Protein Urine Negative (Negative); Squamous Epithelial Cell Urine Many /hpf (Few)
[2021-07-24 19:49] LABS: Specific Grav Ur 1.058 (1.001-1.035)
--- NOTE | 2021-07-24 20:52 | PM.IMHP ---
H&P: HPI History of Present Illness Date/Time: 07/24/21 20:52 Chief Complaint: Abdominal distension Narrative: This is a 45-year-old female with past medical history significant for alcoholic hepatic cirrhosis, chronic anemia, tobacco dependence patient used to smoke 2-3 packs daily now is down to 6 cigarettes. Patient presented to the emergency room due to increased abdominal girth and abdominal pain attributes abdominal pain to abdominal distension states that she has had four paracentesis for tension ascites. Patient's complaints are also significant for weight loss, nausea and vomiting, fatigue, denies any fevers ,any rigors ,any chills ,no shortness of breath ,no cough ,no sputum ,production ,no hematemesis ,no melena ,no bright red blood per rectum. Preliminary workup was significant for CT of abdomen and pelvis which demonstrated large amount of ascites, AST 400, ALT 40, alk phos 200, ethyl alcohol 300. Review of Systems Review of Systems: Increased abdominal girth, abdominal wall pain, fatigue, nausea and vomiting. Constitutional: Constitutional: Denies chills, Reports fatigue, Denies fever(s), Reports lethargy and Reports malaise Eyes: Eyes: Denies change in vision ENT: Denies dysphagia and Denies odynophagia Cardiovascular: Cardiovascular: Denies irregular heart rhythm, Denies radiating jaw, neck or arm pain, Denies palpitations, Denies dyspnea on exertion and Denies orthopnea Respiratory: Respiratory: Denies change in phlegm color, Denies cough, Denies excessive phlegm production, Denies dyspnea and Denies wheezing Gastrointestinal: Gastrointestinal: Reports abdominal pain, Denies melena, Denies hematochezia, Denies coffee ground emesis, Denies dyspepsia, Denies heartburn, Reports loose stools, Reports nausea and Reports vomiting Comments: Abdominal distension Genitourinary: Genitourinary: Reports no additional female genitourinary complaints Musculoskeletal: Musculoskeletal: Reports no additional musculoskeletal complaints Integumentary/Breasts: Skin/Breast: Reports change in pigmentation (Yellow) Neurologic: Reports system reviewed and no additional complaints, except as documented Psychiatric: Psychiatric: Reports no additional psychiatric complaints Endocrine: Endocrine: Reports no additional endocrine complaints Hematologic/Lymphatic: Hematologic/Lymphatic: Reports no additional hematologic/lymphatic complaints Allergic/Immunologic: Allergic/Immunologic: Reports no additional allergic/immunologic complaints [facility] Past Medical History Medical History (Updated 07/25/21 @ 02:28 by Sara Castro MD) Abdominal pain Alcoholic hepatitis with ascites Alcoholism Anxiety Cirrhosis, alcoholic Depression H/O: HTN (hypertension) HTN (hypertension), benign Psoriasis Surgical History Surgical History No history of previous surgery Family History Family History Mother Lung cancer Hypertension Depression Anxiety Social History Social History Social History: The patient stated that she has not smoked in the last week and that she is quitting. The patient has 3 children. 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 The patient lives with her who is her durable power staff attorney for healthcare. The patient desires to be a full code. The patient stated that she smoked marijuana long time ago but no longer uses it. She states that she was a heavy drinker 10 years ago but quit drinking 10 years ago and only occasionally has an alcoholic beverage. She likes to drink beer Smoking packs per day: 0.5 Smoking cigarettes per day: 10.0 Years smoked: 20 Smoking pack-years: 10.00 Smoking status: Current every day smoker Tobacco type: cigarettes Second hand tobacco smoke exposure: Yes
[2021-07-24 21:08] VITALS: BP 106/81; PULSE 104; RESP 20; O2SAT 96
[2021-07-24 22:10] VITALS: BMI 18.1
--- NOTE | 2021-07-24 23:12 | PC.NURSE ---
This patient, Dena Proctor, was admitted to [facility] Surg Room 325-01. Patient/family oriented to hospital policies and general routines including ID bracelet, bed and alarms, visiting hours, pain management, procedures, bathroom and other care routines, personal items, smoking policy, room service/diet, and visiting hours. Information on how to activate the Rapid Response Team has been discussed. Patient/Family are encouraged to report perceived risks to care and to ask questions if they do not understand what they are told or what they should do.
[2021-07-25 06:00] VITALS: BP 111/83; PULSE 88; RESP 16; TEMP 36.6; O2SAT 93
[2021-07-25 06:56] LABS: Anion Gap 10 mmol/L (8-16); Blood Urea Nitrogen 2 mg/dL (7-17); Calcium 7.6 mg/dL (8.4-10.2); Carbon Dioxide 23 mmol/L (22-30); Chloride 108 mmol/L (98-107); Estimated CRCL calculation 97 ml/min; Estimated Glomerular Filt Rate > 60; Glucose 102 mg/dL (65-110); Potassium 3.3 mmol/L (3.4-5.0); Sodium 141 mmol/L (137-145)
[2021-07-25] MEDS: FUROSEMIDE INJ 40 MG/4 ML VIAL 20 MG IV PUSH ×2 (09:24→17:15)
[2021-07-25] MEDS: MORPHINE SULFATE (*CRX) 2 MG/ML INJ 0.5 MG IV PUSH (09:25)
[2021-07-25] MEDS: ALBUMIN HUMAN 25% 12.5 GM/50ML 50 ML IVPB ×3 (10:23→17:15)
[2021-07-25 11:50] VITALS: BMI 18.1
[2021-07-25 14:00] VITALS: BP 127/85; PULSE 92; RESP 18; TEMP 37.4; O2SAT 95
--- NOTE | 2021-07-25 14:17 | PCAUD ---
3250 ml drained during todays paracentesis.
--- NOTE | 2021-07-25 15:04 | PM.IMPN ---
Progress Note: A&P Assessment and Plan (1) Abdominal pain: Code(s): R10.9 - Unspecified abdominal pain Status: Acute Assessment and Plan: Secondary to abdominal distension Supportive care (2) Abdominal ascites: Qualifiers: Ascites type: due to alcoholic hepatitis Qualified Code(s): K70.11 - Alcoholic hepatitis with ascites Code(s): R18.8 - Other ascites Status: Acute Assessment and Plan: Tension ascites Ultrasound-guided paracentesis in a.m. Albumin infusion and diuresing consult GI (3) Alcoholism: Code(s): F10.20 - Alcohol dependence, uncomplicated Status: Acute Assessment and Plan: [facility] protocol Abstinence to alcohol adviced (4) Nausea and vomiting: Code(s): R11.2 - Nausea with vomiting, unspecified Status: Acute Assessment and Plan: Supportive care Zofran as needed (5) Hyperbilirubinemia: Code(s): E80.6 - Other disorders of bilirubin metabolism Status: Acute Assessment and Plan: Secondary to liver damage (6) Jaundice: Code(s): R17 - Unspecified jaundice Status: Acute Assessment and Plan: Secondary to hepatic cirrhosis with alcoholic hepatitis (7) Severe protein-calorie malnutrition: Code(s): E43 - Unspecified severe protein-calorie malnutrition Status: Acute Assessment and Plan: Albumin infusion Albumin is 2.8 (8) Macrocytic anemia: Code(s): D53.9 - Nutritional anemia, unspecified Status: Acute Assessment and Plan: Secondary to alcoholism (9) Tobacco dependence: Code(s): F17.200 - Nicotine dependence, unspecified, uncomplicated Status: Acute Assessment and Plan: Nicotine patch as needed Subjective Date/time seen: 07/25/21 15:04 Interval history: 45-year-old female with past medical history significant for alcoholic hepatic cirrhosis, chronic anemia, tobacco dependence patient used to smoke 2-3 packs daily now is down to 6 cigarettes. Patient presented to the emergency room due to increased abdominal girth and abdominal pain attributes abdominal pain to abdominal distension states that she has had four paracentesis for tension ascites. Pt receiving pain control today will be going for paracentesis today. Review of Systems Review of Systems: All systems reviewed & are unremarkable except as noted in HPI and below Exam Narrative: younger female Resp: Effort & Inspection: normal respiratory effort, able to speak in complete sentences and no audible wheezes Auscultation: clear to auscultation bilaterally, no crackles, no rales, no rhonchi and wheezes Cardio: Jugular venous distension: no JVD Rate: regular rate Rhythm: regular rhythm Heart sounds: S1 normal heart sound present and S2 normal heart sound present GI: Inspection: distended and other (gross ascites ) Skin: General skin exam: jaundice Rashes: no rashes Wounds: no wounds Objective Data Vital Signs Vital Signs: Vital Signs - 24 hr 07/24/21 17:01 07/24/21 21:08 07/25/21 06:00 Temperature 37.1 C 36.6 C Pulse Rate 112 H 104 H 88 Respiratory Rate 18 20 16 Blood Pressure 118/96 H 106/81 111/83 Pulse Oximetry 98 96 93 07/25/21 14:00 Temperature 37.4 C Pulse Rate 92 Respiratory Rate 18 Blood Pressure 127/85 Pulse Oximetry 95 Intake/Output Intake/Output: Intake & Output 07/22/21 07/23/21 07/24/21 07/25/21 23:59 23:59 23:59 23:59 Intake Total 1050 450 Output Total 3250 Balance 1050 -2800 Meds/Results Medications: Active Medications Generic Name Dose Route Start Last Admin Trade Name Freq PRN Reason Stop Dose Admin Folic Acid 1 mg 07/25/21 09:00 07/25/21 08:00 Folic Acid 1 Mg Tablet PO Not Given DAILY NIKA Furosemide 20 mg 07/25/21 09:00 07/25/21 09:24 Furosemide Inj 40 Mg/4 Ml Vial IV PUSH 20 mg BID NIKA Administration Albumin Human 50 mls @ 50 mls/hr 07/25/21 06:00 07/25/21 14:
--- NOTE | 2021-07-25 15:13 | PC.NURSE ---
Addendum entered by Blanche Hidalgo RN 07/25/21 15:15: Student Irish Rios Original Note: On 07/25/21, the student, [ Xiomara Mcadams], provided care and completed [facility] documentation on this patient. I have reviewed the student's documentation and agree with the findings.
--- NOTE | 2021-07-25 15:38 | PCAUD ---
Pt to be NPO at midnight for US abdominal tomorrow 07/26/21
--- NOTE | 2021-07-25 17:02 | WPDGICN ---
Assessment and Plan Assessment and plan (1) Alcoholism: Code(s): F10.20 - Alcohol dependence, uncomplicated Status: Acute Assessment and Plan: all she states that she has cut way back on alcohol, her blood alcohol level was over 330 yesterday on admission. She states that her choral teacher is going to help her get enrolled in a program that she can attend here in [place] to help her remain sober (2) Cirrhosis, alcoholic: Qualifiers: Ascites presence: with ascites Qualified Code(s): K70.31 - Alcoholic cirrhosis of liver with ascites Code(s): K70.30 - Alcoholic cirrhosis of liver without ascites Status: Acute Assessment and Plan: as mentioned she has been diagnosed in the past with cirrhosis and had ascites which was 1st drained about a year ago. She has been under the care of a choral teacher at [facility] for some time. She states that she slows down her drinking and she stops for a while every now and then but admits that she has a definite problem with it. Today we will need to watch her for a alcohol withdrawal syndrome. Otherwise if she is stable she could probably be discharged in 24 hours or so (3) Abdominal ascites: Qualifiers: Ascites type: due to alcoholic hepatitis Qualified Code(s): K70.11 - Alcoholic hepatitis with ascites Code(s): R18.8 - Other ascites Status: Acute Assessment and Plan: She had a large volume of ascites removed today which is surprising because she had a paracentesis just 1 week ago at [facility]. She states that she does take her spironolactone and furosemide faithfully. (4) Severe protein-calorie malnutrition: Code(s): E43 - Unspecified severe protein-calorie malnutrition Status: Acute Assessment and Plan: she says that she does the best she can to get high-protein diet and to drink Ensure but sometimes it is simply not possible GI Consult Note Consult date/time: 07/25/21 17:02 HPI: Dena Proctor is a 45 year old female who was admitted through the emergency room with complaints of severe abdominal discomfort due to distention. She went to Radiology for paracentesis today with removal of over 3 L of fluid. She states that she is somewhat better but just like the last time she had a paracentesis she is sore in the abdomen. She has cirrhosis and developed ascites requiring paracentesis the 1st time this past December. Her last paracentesis before it today was just a week ago. This is a fast as she has ever had a reaccumulation of that much fluid. She denies swelling her lower extremities except for the tops of her feet. He has had a great deal of weight loss. She usually weighs about 135 is down to 97. Her liver disease is on the basis of alcohol abuse she has been heavy drinker for many years about a pt of alcohol per day. He has seen a choral teacher,Dr. Estes, at [facility] who is going to help her get into a program to stay off alcohol that will allow her then to be put on the transplant list. She would have to be for free of alcohol for 6 months but she will believes that she can do it. She denies vomiting or nausea. She has never had hematemesis. She did have an EGD at [facility] and does not think that she needed banding of varices but she was started on Nadolol. and takes it faithfully. She is also on furosemide spironolactone and states that she takes them faithfully. She has been placed on a high protein diet in the is pretty good about it but sometimes she does not feel like eating. There is no family history of liver disease to knowledge. She has had no recent melena or significant change in bowel habits. She has had no fever but has felt a bit achy and fatigued. She denies being short of breath Review of Systems Review of Systems: All systems reviewed & are unremarkable except as noted in HPI and below PMFSH Past Medic
[2021-07-25] MEDS: POTASSIUM CHLORIDE 20 MEQ TABLET.ER 40 MEQ PO (17:15)
--- NOTE | 2021-07-25 17:23 | PCAUD ---
Md Alexander called r/t pt c/o abdominal pain, requesting pain medication.
[2021-07-25 18:02] LABS: Ammonia 15 umol/L (9-30)
[2021-07-25] MEDS: HYDROcodone/acetaminophen (*CRX) 5-325 MG TABLET 1 TAB PO (20:59)
[2021-07-25 22:00] VITALS: BP 107/74; PULSE 93; RESP 18; TEMP 36.1; O2SAT 97
[2021-07-26] MEDS: ALBUMIN HUMAN 25% 12.5 GM/50ML 50 ML IVPB ×3 (00:11→11:13)
[2021-07-26 06:00] VITALS: BP 111/76; PULSE 84; RESP 18; TEMP 36.8; O2SAT 96
[2021-07-26 08:09] LABS: Hematocrit 24.2 % (37.0-47.0); Hemoglobin 7.6 g/dL (12.0-15.0); Immature Platelet Fraction Pct 2.8 % (0.9-11.2); Mean Corpuscular HGB Conc 31.4 g/dl (32-36); Mean Corpuscular Hemoglobin 36.9 pg (26-34); Mean Corpuscular Volume 117.5 fl (80-100); Platelet Count Result 104 k/mm3 (150-375); Red Blood Count 2.06 M/mm3 (4.2-5.4); Red Cell Distribution Width 14.6 % (11.5-14.5); White Blood Count 5.7 K/mm3 (4.5-10.0)
[2021-07-26 08:21] LABS: Anion Gap 8 mmol/L (8-16); Blood Urea Nitrogen 2 mg/dL (7-17); Calcium 7.8 mg/dL (8.4-10.2); Carbon Dioxide 29 mmol/L (22-30); Chloride 100 mmol/L (98-107); Estimated CRCL calculation 118 ml/min; Estimated Glomerular Filt Rate > 60; Glucose 89 mg/dL (65-110); Potassium 3.3 mmol/L (3.4-5.0); Sodium 137 mmol/L (137-145)
[2021-07-26] MEDS: POTASSIUM CHLORIDE 20 MEQ TABLET.ER 40 MEQ PO ×2 (08:47→16:53)
[2021-07-26] MEDS: THIAMINE HCL 100 MG TABLET PO (08:47)
[2021-07-26] MEDS: SPIRONOLACTONE 50 MG TABLET 100 MG PO (08:47)
[2021-07-26 08:48] VITALS: PULSE 80
[2021-07-26] MEDS: FOLIC ACID 1 MG TABLET PO (08:48)
[2021-07-26] MEDS: nadoloL 20 MG TABLET PO (08:48)
[2021-07-26] MEDS: FUROSEMIDE INJ 40 MG/4 ML VIAL 20 MG IV PUSH ×2 (08:49→16:53)
[2021-07-26 10:17] VITALS: O2SAT 96
[2021-07-26] MEDS: HYDROcodone/acetaminophen (*CRX) 5-325 MG TABLET 1 TAB PO ×2 (10:19→16:55)
--- NOTE | 2021-07-26 13:47 | PM.IMPN ---
Progress Note: A&P Assessment and Plan (1) Abdominal pain: Code(s): R10.9 - Unspecified abdominal pain Status: Acute Assessment and Plan: Persistent abdominal pain despite large volume paracentesis. Patient referred for liver transplant evaluation. She is scheduled to enroll in alcohol cessation program. She is under the care of a local area network systems adminstrator in the community. Secondary to abdominal distension Supportive care (2) Abdominal ascites: Qualifiers: Ascites type: due to alcoholic hepatitis Qualified Code(s): K70.11 - Alcoholic hepatitis with ascites Code(s): R18.8 - Other ascites Status: Acute Assessment and Plan: Tension ascites Secondary to alcohol related chronic liver disease Repeat Ultrasound-guided paracentesis today continue albumin infusion and diuresing consult GI (3) Alcoholism: Code(s): F10.20 - Alcohol dependence, uncomplicated Status: Acute Assessment and Plan: [facility] protocol Abstinence to alcohol adviced (4) Nausea and vomiting: Code(s): R11.2 - Nausea with vomiting, unspecified Status: Acute Assessment and Plan: Supportive care Zofran as needed (5) Hyperbilirubinemia: Code(s): E80.6 - Other disorders of bilirubin metabolism Status: Acute Assessment and Plan: Secondary to liver damage (6) Jaundice: Code(s): R17 - Unspecified jaundice Status: Acute Assessment and Plan: Secondary to hepatic cirrhosis with alcoholic hepatitis (7) Severe protein-calorie malnutrition: Code(s): E43 - Unspecified severe protein-calorie malnutrition Status: Acute Assessment and Plan: Albumin infusion Albumin is 2.8 (8) Macrocytic anemia: Code(s): D53.9 - Nutritional anemia, unspecified Status: Acute Assessment and Plan: Secondary to alcoholism (9) Tobacco dependence: Code(s): F17.200 - Nicotine dependence, unspecified, uncomplicated Status: Acute Assessment and Plan: Nicotine patch as needed Subjective Date/time seen: 07/26/21 13:47 S: Patient is examined at the bedside. She reports abdominal distension despite the paracentesis yesterday. Review of Systems Review of Systems: All systems reviewed & are unremarkable except as noted in HPI and below Constitutional: Constitutional: Reports fatigue, Reports lethargy and Reports weakness Eyes: Eyes: Reports no additional eye complaints ENT: Reports system reviewed and no additional complaints, except as documented Cardiovascular: Cardiovascular: Reports no additional cardiovascular complaints Respiratory: Respiratory: Reports no additional respiratory complaints Gastrointestinal: Gastrointestinal: Reports abdominal pain, Denies melena, Denies hematochezia, Denies nausea, Denies vomiting and Denies hematemesis Comments: abdominal distension. Genitourinary: Genitourinary: Reports no additional female genitourinary complaints Integumentary/Breasts: Skin/Breast: Reports dry skin Neurologic: Reports system reviewed and no additional complaints, except as documented Psychiatric: Psychiatric: Reports no additional psychiatric complaints Exam Narrative: Thin frail chronically-ill female, looking older than stated age. Const: General: no acute distress and uncomfortable HENMT: Mouth: Yes moist mucous membranes Eyes: EOM: EOMs intact bilaterally Other: Jaundice. Resp: Effort & Inspection: normal respiratory effort Auscultation: no crackles, no rales and no rhonchi GI: Inspection: distended GI Palp: Yes Soft to palpation and No Guarding due to palpation present (GI) Percussion: Yes Fluid wave present : Other: Deferred. Skin: General skin exam: normal color Objective Data Vital Signs Vital Signs: Vital Signs - 24 hr 07/25/21 14:00 07/25/21 22:00 07/26/21 06:00 Temperature 99.3 F 97.0 F L 98.3 F Pulse Rate 92 93 84 Respiratory Rate 18 18 18 Blood Pressure
[2021-07-26 15:15] VITALS: BP 92/54; PULSE 73; RESP 18; TEMP 36.7; O2SAT 98
[2021-07-26] MEDS: ALBUMIN HUMAN 25% 25 GM/100 ML 200 ML IVPB (16:55)
[2021-07-26 21:35] VITALS: BP 93/66; PULSE 74; RESP 18; TEMP 36.7; O2SAT 97
[2021-07-27] MEDS: ALBUMIN HUMAN 25% 12.5 GM/50ML 50 ML IVPB ×2 (01:13→16:58)
[2021-07-27] MEDS: HYDROcodone/acetaminophen (*CRX) 5-325 MG TABLET 1 TAB PO ×4 (01:13→21:09)
[2021-07-27 05:30] VITALS: BP 104/73; PULSE 68; RESP 18; TEMP 36.8; O2SAT 97
[2021-07-27] MEDS: POTASSIUM CHLORIDE 20 MEQ TABLET.ER 40 MEQ PO ×2 (08:10→16:54)
[2021-07-27] MEDS: ALBUMIN HUMAN 25% 25 GM/100 ML 200 ML IVPB (08:12)
[2021-07-27 08:15] VITALS: PULSE 70
[2021-07-27] MEDS: nadoloL 20 MG TABLET PO (08:15)
[2021-07-27] MEDS: SPIRONOLACTONE 50 MG TABLET 100 MG PO (08:15)
[2021-07-27] MEDS: THIAMINE HCL 100 MG TABLET PO (08:15)
[2021-07-27] MEDS: FUROSEMIDE INJ 40 MG/4 ML VIAL 20 MG IV PUSH ×2 (08:15→16:55)
[2021-07-27] MEDS: FOLIC ACID 1 MG TABLET PO (08:15)
--- NOTE | 2021-07-27 10:21 | PM.IMPN ---
Progress Note: A&P Assessment and Plan (1) Abdominal pain: Code(s): R10.9 - Unspecified abdominal pain Status: Acute Assessment and Plan: Persistent abdominal pain despite large volume paracentesis. Patient declines transfer for liver transplant evaluation. She is scheduled to enroll in alcohol cessation program. She is under the care of a street supervisor in the community, but was required to have 6-months sobriety before she can be evluated for a liver transplant. Supportive care repeat paracentesis today. (2) Abdominal ascites: Qualifiers: Ascites type: due to alcoholic hepatitis Qualified Code(s): K70.11 - Alcoholic hepatitis with ascites Code(s): R18.8 - Other ascites Status: Acute Assessment and Plan: Tension ascites Secondary to alcohol related chronic liver disease Repeat Ultrasound-guided paracentesis today continue albumin infusion and diuresing Paracentesis this PM Follow up hepatology/Liver transplant as an outpatient Alcohol cessation. (3) Alcoholism: Code(s): F10.20 - Alcohol dependence, uncomplicated Status: Acute Assessment and Plan: [facility] protocol Abstinence to alcohol adviced (4) Nausea and vomiting: Code(s): R11.2 - Nausea with vomiting, unspecified Status: Acute Assessment and Plan: Supportive care Zofran as needed (5) Hyperbilirubinemia: Code(s): E80.6 - Other disorders of bilirubin metabolism Status: Acute Assessment and Plan: Secondary to liver damage (6) Jaundice: Code(s): R17 - Unspecified jaundice Status: Acute Assessment and Plan: Secondary to hepatic cirrhosis with alcoholic hepatitis (7) Severe protein-calorie malnutrition: Code(s): E43 - Unspecified severe protein-calorie malnutrition Status: Acute Assessment and Plan: Albumin infusion Albumin is 2.8 (8) Macrocytic anemia: Code(s): D53.9 - Nutritional anemia, unspecified Status: Acute Assessment and Plan: Secondary to alcoholism. Folate, b12 pyridoxine supplementation. (9) Tobacco dependence: Code(s): F17.200 - Nicotine dependence, unspecified, uncomplicated Status: Acute Assessment and Plan: Nicotine patch as needed Subjective Date/time seen: 07/27/21 10:21 S: Patient is examined at the bedside. Ascites harrison simproved with fluid retention. Patient refuses transfer for liver transplant evaluation. Interval history: 45-year-old female with past medical history significant for alcoholic hepatic cirrhosis, chronic anemia, tobacco dependence patient used to smoke 2-3 packs daily now is down to 6 cigarettes. Patient presented to the emergency room due to increased abdominal girth and abdominal pain attributes abdominal pain to abdominal distension states that she has had four paracentesis for tension ascites. Pt receiving pain control today will be going for paracentesis today. Review of Systems Review of Systems: All systems reviewed & are unremarkable except as noted in HPI and below Constitutional: Constitutional: Denies chills, Reports fatigue, Denies fever(s), Reports lethargy, Reports malaise and Reports weakness Eyes: Eyes: Reports no additional eye complaints and Denies change in vision ENT: Reports system reviewed and no additional complaints, except as documented, Denies dysphagia and Denies odynophagia Cardiovascular: Cardiovascular: Reports no additional cardiovascular complaints, Denies irregular heart rhythm, Denies radiating jaw, neck or arm pain, Denies palpitations, Denies dyspnea, Denies dyspnea on exertion and Denies orthopnea Respiratory: Respiratory: Reports no additional respiratory complaints, Denies change in phlegm color, Denies cough, Denies excessive phlegm production, Denies dyspnea, Denies dyspnea on exertion and Denies wheezing Gastrointestinal: Gastrointestinal: Reports abdominal pain, Denies melena, Denies hematochezia,
--- NOTE | 2021-07-27 10:24 | P.TS_ITS ---
Transfer Discharge Sum: Prov Provider Date of admission: 07/26/21 15:41 Primary care physician: Rodrigo Watts, PA Admitting clinician: Sara Castro MD Consults: 07/25/21 Consult to Physician Routine Comment: Spoke with Dr. Aguirre @ [phone] (,) Consulting Provider: Michael Aguirre packing floor worker/MD group to consult: GI Reason for consultation: ASCITES GROSS- liver Has provider been notified: Yes Transfer Discharge Sum: Med Medications Active and Home Medications: Home Medications folic acid 1 mg PO DAILY 07/24/21 [History Confirmed 07/24/21] furosemide 40 mg PO DAILY 07/24/21 [History Confirmed 07/24/21] nadolol 20 mg PO DAILY 07/24/21 [History Confirmed 07/24/21] spironolactone 100 mg PO DAILY 07/24/21 [History Confirmed 07/24/21] thiamine HCl (vitamin B1) [Vitamin B-1] 100 mg PO DAILY 07/24/21 [History Confirmed 07/24/21] Active Medications Hydrocodone Bitart/Acetaminophen (Hydrocodone/Acetaminophen (*Crx) 5-325 Mg Tablet) 1 tab PO Q6H PRN PRN Reason: Pain Rated 4-6 Last Admin: 07/27/21 09:23 Dose: 1 tab Documented by: Folic Acid (Folic Acid 1 Mg Tablet) 1 mg PO DAILY [facility] Last Admin: 07/27/21 08:15 Dose: 1 mg Documented by: Furosemide (Furosemide Inj 40 Mg/4 Ml Vial) 20 mg IV PUSH BID [facility] Last Admin: 07/27/21 08:15 Dose: 20 mg Documented by: Albumin Human (Albutein) 200 mls @ 60 mls/hr IVPB Q12HR NIKA Stop: 07/27/21 12:19 Last Admin: 07/27/21 08:12 Dose: 60 mls/hr Documented by: Albumin Human (Albutein) 50 mls @ 50 mls/hr IVPB Q6HR NIKA Nadolol (Nadolol 20 Mg Tablet) 20 mg PO DAILY [facility] Last Admin: 07/27/21 08:15 Dose: 20 mg Documented by: Potassium Chloride (Potassium Chloride 20 Meq Tablet.Er) 40 meq PO BIDWM NIKA Last Admin: 07/27/21 08:10 Dose: 40 meq Documented by: Potassium Chloride (Potassium Chloride 20 Meq Packet (For Liquid)) 40 meq PO ONCE ONE Stop: 07/27/21 10:20 Spironolactone (Spironolactone 50 Mg Tablet) 100 mg PO DAILY [facility] Last Admin: 07/27/21 08:15 Dose: 100 mg Documented by: Thiamine HCl (Thiamine Hcl 100 Mg Tablet) 100 mg PO DAILY [facility] Last Admin: 07/27/21 08:15 Dose: 100 mg Documented by: Transfer Discharge Sum: Hosp Hospital Course Hospital course: Dena Proctor is a 45 year old female Time Spent with Patient Time attestation: Total time spent providing and/or coordinating transfer services:
[2021-07-27] MEDS: POTASSIUM CHLORIDE 20 MEQ PACKET (FOR LIQUID) 40 MEQ PO (10:40)
[2021-07-27 10:50] LABS: Basophils Absolute Auto 0.1 K/mm3 (0.0-0.1); Basophils Percent Auto 1.1 % (0.2-1.2); Eosinophils Absolute Auto 0.1 K/mm3 (0-0.3); Eosinophils Percent Auto 1.9 % (0-4.4); Hematocrit 25.4 % (37.0-47.0); Hemoglobin 7.9 g/dL (12.0-15.0); Immature Granulocyte Absolute 0.02 K/mm3 (0.00-0.031); Immature Granulocyte Percent A 0.3 % (0-0.5); Lymphocytes Percent Auto 27.5 % (18.3-44.2); Mean Corpuscular HGB Conc 31.1 g/dl (32-36); Mean Corpuscular Hemoglobin 36.6 pg (26-34); Mean Corpuscular Volume 117.6 fl (80-100); Mean Platelet Volume 9.7 fl (7.4-10.4); Monocytes Absolute Auto 0.3 K/mm3 (0.1-0.6); Monocytes Percent Auto 4.5 % (2.6-8.5); Neutrophils Percent Auto 64.7 % (45.5-73.1); Platelet Count Result 94 k/mm3 (150-375); Red Blood Count 2.16 M/mm3 (4.2-5.4); Red Cell Distribution Width 14.5 % (11.5-14.5); White Blood Count 6.2 K/mm3 (4.5-10.0)
[2021-07-27 10:51] LABS: Anion Gap 11 mmol/L (8-16); Blood Urea Nitrogen 3 mg/dL (7-17); Calcium 8.4 mg/dL (8.4-10.2); Carbon Dioxide 29 mmol/L (22-30); Chloride 98 mmol/L (98-107); Estimated CRCL calculation 97 ml/min; Estimated Glomerular Filt Rate > 60; Glucose 97 mg/dL (65-110); Potassium 3.9 mmol/L (3.4-5.0); Sodium 138 mmol/L (137-145)
--- NOTE | 2021-07-27 10:57 | PCNFU ---
Nutrition Follow-Up Complete: Unintended weight loss as related to poor po intake as evidenced by weight loss of 32 ibs. Goal: Adequate Intake of at least 75% of meals/supplements Patient is progressing towards goal. We will continue current goal. Pt current nutrition is Regular with 1200 ml Fluid Restriction. Last recorded weight is 51 kg, no new weight to report. Bowel Motility:+BM reported 07/27 Labs Reviewed:Cr 0.4,BUN 2, Hct 24.2,Hgb 7.6 Meds Noted:Troy, Folic Acid, Corgard, KCL, [place], Aldactone,Thiamine, Lasix. Additional Notes: Nutrition follow up. Patient is tolerating regular diet. Oral Intake has been 50-75% of meals. Paracentesis on 07/25 over 3L removed. Skin: WNL. Monitoring: RD will monitor every 5 days.
[2021-07-27 11:38] LABS: Atypical Lymphocytes Present; Platelet Estimate Decreased (Adequate)
--- NOTE | 2021-07-27 13:11 | PM.DS ---
DS: Admitting Diagnosis Discharge Date 07/27/2021 Admitting Diagnosis Tension ascites DS: Discharge Diagnosis Discharge Diagnosis (1) Abdominal ascites: Qualifiers: Ascites type: due to alcoholic hepatitis Qualified Code(s): K70.11 - Alcoholic hepatitis with ascites Code(s): R18.8 - Other ascites Status: Acute Assessment and Plan: Tension ascites Secondary to alcohol related chronic liver disease Repeat Ultrasound-guided paracentesis today continue albumin infusion and diuresing Paracentesis this PM Follow up hepatology/Liver transplant as an outpatient Alcohol cessation. (2) Abdominal pain: Code(s): R10.9 - Unspecified abdominal pain Status: Acute Assessment and Plan: Persistent abdominal pain despite large volume paracentesis. Patient declines transfer for liver transplant evaluation. She is scheduled to enroll in alcohol cessation program. She is under the care of a export clerk in the community, but was required to have 6-months sobriety before she can be evluated for a liver transplant. Supportive care repeat paracentesis today. (3) Alcoholism: Code(s): F10.20 - Alcohol dependence, uncomplicated Status: Acute Assessment and Plan: [facility] protocol Abstinence to alcohol adviced (4) Nausea and vomiting: Code(s): R11.2 - Nausea with vomiting, unspecified Status: Acute Assessment and Plan: Supportive care Zofran as needed (5) Hyperbilirubinemia: Code(s): E80.6 - Other disorders of bilirubin metabolism Status: Acute Assessment and Plan: Secondary to liver damage (6) Jaundice: Code(s): R17 - Unspecified jaundice Status: Acute Assessment and Plan: Secondary to hepatic cirrhosis with alcoholic hepatitis (7) Severe protein-calorie malnutrition: Code(s): E43 - Unspecified severe protein-calorie malnutrition Status: Acute Assessment and Plan: Albumin infusion Albumin is 2.8 (8) Macrocytic anemia: Code(s): D53.9 - Nutritional anemia, unspecified Status: Acute Assessment and Plan: Secondary to alcoholism. Folate, b12 pyridoxine supplementation. (9) Tobacco dependence: Code(s): F17.200 - Nicotine dependence, unspecified, uncomplicated Status: Acute Assessment and Plan: Nicotine patch as needed DS: Summary Hospital Course Reason for hospitalization: Abdominal pain Hospital Course: This is a 45-year-old female with past medical history significant for alcoholic hepatic cirrhosis, chronic anemia, tobacco dependence patient used to smoke 2-3 packs daily now is down to 6 cigarettes. Patient presented to the emergency room due to increased abdominal girth and abdominal pain attributes abdominal pain to abdominal distension states that she has had four paracentesis for tension ascites. Patient's complaints are also significant for weight loss, nausea and vomiting, fatigue, denies any fevers ,any rigors ,any chills ,no shortness of breath ,no cough ,no sputum ,production ,no hematemesis ,no melena ,no bright red blood per rectum. Preliminary workup was significant for CT of abdomen and pelvis which demonstrated large amount of ascites, AST 400, ALT 40, alk phos 200, ethyl alcohol 300. Patient underwent a large volume of ascites on 07/27 which was interesting because she had a paracentesis just 1 week ago at [facility]. She states that she does take her spironolactone and furosemide faithfully. Postprocedure patient was hypotensive and albumin infusions were continued. The following day the patient reported abdominal pain and distention and was scheduled for 2nd session of paracenteses. This time the less than 500 cc of fluids were removed. Patient remain overnight for blood pressure monitoring and albumin administration. This morning she complains of abdominal pain. Patient has been receiving intermittent doses of [place] in the hos
[2021-07-27 15:41] VITALS: BP 108/68; PULSE 64; RESP 16; TEMP 36.8; O2SAT 97
[2021-07-27 22:00] VITALS: BP 98/79; PULSE 59; RESP 16; TEMP 36.3; O2SAT 100
[2021-07-28] MEDS: ALBUMIN HUMAN 25% 12.5 GM/50ML 50 ML IVPB ×2 (00:36→06:33)
[2021-07-28 06:00] VITALS: BP 94/53; PULSE 56; RESP 16; TEMP 36.4; O2SAT 98
[2021-07-28] MEDS: THIAMINE HCL 100 MG TABLET PO (09:09)
[2021-07-28] MEDS: POTASSIUM CHLORIDE 20 MEQ TABLET.ER 40 MEQ PO (09:09)
[2021-07-28] MEDS: FUROSEMIDE INJ 40 MG/4 ML VIAL 20 MG IV PUSH (09:09)
[2021-07-28] MEDS: SPIRONOLACTONE 50 MG TABLET 100 MG PO (09:09)
[2021-07-28] MEDS: FOLIC ACID 1 MG TABLET PO (09:09)
[2021-07-28 09:14] VITALS: BP 92/62; PULSE 60
[2021-07-28] MEDS: HYDROcodone/acetaminophen (*CRX) 5-325 MG TABLET 1 TAB PO (09:19)
[2021-07-29 15:52] LABS: GGT 339 U/L (3-55)
== END 2021-07-28 14:30 | disposition home or self-care (01) | DRG 280 ==
LOC: ANHED 19:59 → ANH3MEDSUR 21:43
PROVIDERS: Family Medicine; Internal Medicine Gastroenterology; Admitting Provider Internal Medicine; Emergency Provider Emergency Medicine; PCP Physician Assistant; Visit Provider Internal Medicine
DX: K70.11 Alcoholic hepatitis with ascites (principal); K70.31 Alcoholic cirrhosis of liver with ascites; E43 Unspecified severe protein-calorie malnutrition; D53.9 Nutritional anemia, unspecified; F10.20 Alcohol dependence, uncomplicated; Y90.8 Blood alcohol level of 240 mg/100 ml or more; Z68.1 Body mass index [BMI] 19.9 or less, adult; E87.6 Hypokalemia; E80.6 Other disorders of bilirubin metabolism; F17.210 Nicotine dependence, cigarettes, uncomplicated; I10 Essential (primary) hypertension; R11.2 Nausea with vomiting, unspecified; N39.0 Urinary tract infection, site not specified; Z79.899 Other long term (current) drug therapy
CPT/HCPCS: 36415; 49083; 74177; 76705; 80048; 80053; 80307; 81001; 82140; 82977; 83690; 85025; 85027; 85055; 85610; 87077; 87086; 87088; 87186; 96361; 96365; 96366; 96367; 96375; 96376; 99285; A9270; G0378; G0379; J0696; J1940; J2270; J7030; P9047; Q9967

== ENCOUNTER 2021-08-14 14:51 | Emergency (ER) | payer OTHER, SELFPAY ==
[2021-08-14 15:14] VITALS: BP 111/72; PULSE 106; RESP 16; TEMP 37.1; O2SAT 98
[2021-08-14 15:56] LABS: Basophils Absolute Auto 0.1 K/mm3 (0.0-0.1); Basophils Percent Auto 1.4 % (0.2-1.2); Eosinophils Absolute Auto 0.2 K/mm3 (0-0.3); Eosinophils Percent Auto 2.4 % (0-4.4); Hematocrit 27.5 % (37.0-47.0); Hemoglobin 8.8 g/dL (12.0-15.0); Immature Granulocyte Absolute 0.02 K/mm3 (0.00-0.031); Immature Granulocyte Percent A 0.3 % (0-0.5); Lymphocytes Absolute Auto 1.71 K/mm3 (0.9-3.2); Mean Corpuscular Hemoglobin 33.1 pg (26-34); Mean Corpuscular Volume 103.4 fl (80-100); Mean Platelet Volume 8.7 fl (7.4-10.4); Monocytes Absolute Auto 0.4 K/mm3 (0.1-0.6); Monocytes Percent Auto 6.7 % (2.6-8.5); Neutrophils Absolute Auto 4.2 K/mm3 (1.3-6.7); Neutrophils Percent Auto 63.2 % (45.5-73.1); Platelet Count Result 172 k/mm3 (150-375); Red Blood Count 2.66 M/mm3 (4.2-5.4); White Blood Count 6.6 K/mm3 (4.5-10.0)
[2021-08-14 16:08] LABS: INR 1.3; Prothrombin Time 16.1 Seconds (11.1-14.7)
[2021-08-14 16:09] LABS: Partial Thromboplastin Time 35.4 SECONDS (22.3-36.8)
[2021-08-14 16:16] LABS: Alanine Aminotransferase 56 U/L (4-35); Albumin Level 4.2 g/dL (3.5-5.1); Alkaline Phosphatase 166 U/L (38-126); Anion Gap 12 mmol/L (8-16); Aspartate Amino Transferase 197 U/L (14-36); Bilirubin,Total 2.2 mg/dL (0.2-1.3); Blood Urea Nitrogen 6 mg/dL (7-17); Calcium 8.9 mg/dL (8.4-10.2); Carbon Dioxide 26 mmol/L (22-30); Chloride 108 mmol/L (98-107); Estimated CRCL calculation 84 ml/min; Estimated Glomerular Filt Rate > 60; Glucose 102 mg/dL (65-110); Lipase 220 U/L (23-300); Potassium 3.7 mmol/L (3.4-5.0); Sodium 146 mmol/L (137-145)
--- NOTE | 2021-08-14 16:53 | PC.NURSE ---
PT UP TO DESK - REQUESTING IV TO BE REMOVED. STATES SHE IS LEAVING AND HER WILL COME PICK HER UP. STATES SHE IS TIRED OF WAITING FOR A ROOM. GAIT STEADY TO SECURITY DESK TO USE PHONE TO CALL .
--- NOTE | 2021-08-14 17:04 | PC.NURSE ---
pulled IV from pt
== END 2021-08-14 16:53 | disposition left against medical advice (07) ==
LOC: ANHED 17:10
PROVIDERS: Emergency Provider Emergency Medicine; PCP Physician Assistant
DX: R10.9 Unspecified abdominal pain (principal)
CPT/HCPCS: 36415; 80053; 82248; 83690; 85025; 85610; 85730; 99199

== ENCOUNTER 2021-08-17 17:41 | Observation (INO) | payer OTHER, SELFPAY ==
--- NOTE | ~2021-08-17 | XR_ITS ---
EXAMINATION: XR chest 2V 08/18/2021 13:22 INDICATION: Persistent cough PROCEDURE: Two-view chest COMPARISON: 12/05/2020 FINDINGS: The lungs are clear. The cardiomediastinal silhouette is within normal limits. There are no pleural effusions. There is no pneumothorax suspected. IMPRESSION: 1: NO ACUTE CARDIOPULMONARY DISEASE. Reviewed, dictated and finalized at location A. STAMPER
--- NOTE | ~2021-08-17 | CT_ITS ---
EXAMINATION: CT abdomen pelvis w con EXAM DATE: 08/17/2021 23:04 INDICATION: Liver failure, diffuse abdominal pain. TECHNIQUE: Spiral CT of the abdomen and pelvis was performed following intravenous injection of 100 m L Omnipaque 350. Axial, coronal and sagittal images of the abdomen and pelvis were reviewed. The do se-length product (DLP) for this examination was 179.48 mGy-cm. The exposure was tailored according to patient size (auto mA exposure control), and iterative reconstruction (ASIR) was used as additiona l dose reduction technique. There is no prior study for comparison. FINDINGS: The gallbladder has severely distended fundus with suspicion of mild wall thickening for am ount of distention. No calcified cholelithiasis. Appearance is suspicious for acute cholecystitis. Di fferential diagnosis includes interstitial edema, chronic liver disease, chronic cholecystitis. There is cirrhosis and hepatosplenomegaly. There is portal hypertension with dilated gastroesophageal , splenorenal portosystemic shunting. The kidneys enhance symmetrically and are normal in appearance, no hydronephrosis. The uterus is unremarkable. The bladder is unremarkable. There is no retroperitoneal or pelvic lym phadenopathy. There is mild scattered arteriosclerotic disease. The appendix is large in caliber but does not appear obstructed and there is no adjacent inflammation . There is diffuse low-density of the ascending and transverse colonic wall unchanged, could be from chronic inflammation or edema. No suspicion of acute colitis. The stomach and small bowel are unrema rkable. There is expected amount of colonic stool. No free intraperitoneal gas. The heart is nor mal in size. There are no pericardial or pleural effusions. The lung bases are unremarkable. There are no osteoblastic or osteolytic lesions identified. IMPRESSION: 1. Suspicion of acute cholecystitis. Less likely possibilities including chronic cholecystitis, final inspector and tester kirsten liver disease. 2. Cirrhosis, hepatosplenomegaly, portal hypertension. Reviewed, dictated and finalized at location A. INIST MECHANIC IMPRESSION: 1. Suspicion of acute cholecystitis. Less likely possibilities including chron ic cholecystitis, chronic liver disease. 2. Cirrhosis, hepatosplenomegaly, portal hypertension.
--- NOTE | ~2021-08-17 | US_ITS ---
EXAMINATION: US abdomen limited DATE: 08/18/2021 11:27 INDICATION: Cholecystitis TECHNIQUE: Multiple grayscale and Doppler ultrasound images of the abdomen were obtained. COMPARISON: CT from yesterday FINDINGS: The head, body, and tail of the pancreas are normal. The liver is normal with normal echoge nicity and echotexture. No surface nodularity. Normal hepatopetal flow in the main portal vein. The g allbladder is distended. Trace pericholecystic fluid is identified. There is no gallbladder wall thic kening. No cholelithiasis is identified. The normal common bile duct measures 4 mm. Sonographic Della y sign is positive. IMPRESSION: 1. Mild gallbladder distention, minimal pericholecystic fluid, and positive sonographic Mccann sign w ithout gallbladder wall thickening or identifiable cholelithiasis. Findings could reflect cholecystit is, particularly given yesterday's CT appearance. Reviewed, dictated and finalized at location B. EILLANCE SENSOR OFFICER IMPRESSION: 1. Mild gallbladder distention, minimal pericholecystic fluid, and positive son ographic Mccann sign without gallbladder wall thickening or identifiable cholel ithiasis. Findings could reflect cholecystitis, particularly given yesterday's CT appearance.
[2021-08-17 17:54] VITALS: BP 137/77; PULSE 98; RESP 18; TEMP 36.3; O2SAT 100
[2021-08-17 18:13] LABS: Basophils Absolute Auto 0.1 K/mm3 (0.0-0.1); Basophils Percent Auto 0.9 % (0.2-1.2); Eosinophils Absolute Auto 0.2 K/mm3 (0-0.3); Eosinophils Percent Auto 2.2 % (0-4.4); Hematocrit 28.6 % (37.0-47.0); Hemoglobin 9.2 g/dL (12.0-15.0); Immature Granulocyte Absolute 0.03 K/mm3 (0.00-0.031); Immature Granulocyte Percent A 0.4 % (0-0.5); Lymphocytes Absolute Auto 2.36 K/mm3 (0.9-3.2); Lymphocytes Percent Auto 35.2 % (18.3-44.2); Mean Corpuscular HGB Conc 32.2 g/dl (32-36); Mean Corpuscular Hemoglobin 32.7 pg (26-34); Mean Corpuscular Volume 101.8 fl (80-100); Mean Platelet Volume 9.2 fl (7.4-10.4); Monocytes Absolute Auto 0.3 K/mm3 (0.1-0.6); Neutrophils Absolute Auto 3.8 K/mm3 (1.3-6.7); Neutrophils Percent Auto 57.3 % (45.5-73.1); Platelet Count Result 103 k/mm3 (150-375); Red Blood Count 2.81 M/mm3 (4.2-5.4); Red Cell Distribution Width 16.6 % (11.5-14.5); White Blood Count 6.7 K/mm3 (4.5-10.0)
[2021-08-17 18:24] LABS: Alanine Aminotransferase 50 U/L (4-35); Albumin Level 4.2 g/dL (3.5-5.1); Alkaline Phosphatase 177 U/L (38-126); Anion Gap 14 mmol/L (8-16); Aspartate Amino Transferase 181 U/L (14-36); Bilirubin,Total 2.3 mg/dL (0.2-1.3); Blood Urea Nitrogen 4 mg/dL (7-17); Calcium 8.7 mg/dL (8.4-10.2); Carbon Dioxide 24 mmol/L (22-30); Chloride 108 mmol/L (98-107); Estimated CRCL calculation 102 ml/min; Estimated Glomerular Filt Rate > 60; Glucose 96 mg/dL (65-110); Lipase 190 U/L (23-300); Potassium 3.7 mmol/L (3.4-5.0); Sodium 146 mmol/L (137-145)
[2021-08-17 20:44] LABS: Add Urine Microscopic? YES; Appearance Urine Cloudy (Clear); Bacteria Urine Trace /hpf; Bilirubin Urine Negative (Negative); Blood Urine Negative (Negative); Color Urine Amber (Yellow); Glucose Urine UA Negative (Negative); Ketones Urine Negative (Negative); Leukocyte Esterase Ur Negative LEU/UL (Negative); Mucus Urine Heavy /lpf; Nitrate Urine Positive (Negative); Protein Urine Negative (Negative); Specific Grav Ur 1.018 (1.001-1.035); Squamous Epithelial Cell Urine Many /hpf (Few)
[2021-08-17 22:03] LABS: Pregnancy On Board Control Positive; Urine Pregnancy Test Negative
[2021-08-17 23:05] LABS: Ethanol 271 mg/dL (<10); INR 1.3; Prothrombin Time 16.3 Seconds (11.1-14.7)
[2021-08-17 23:16] VITALS: BP 104/72; PULSE 84; RESP 18; O2SAT 99
--- NOTE | 2021-08-17 23:47 | PM.IMHP ---
H&P: HPI History of Present Illness Date/Time: 08/17/21 23:47 Chief Complaint: Abdominal pain Narrative: This is a 45-year-old female with past medical history significant for alcohol dependence, tobacco dependence, patient smokes about a pack of cigarette daily, at one point she was down to half a pack, hepatic cirrhosis, DTs. Patient presented to the emergency room due to abdominal pain, her last drink was today prior to coming to the hospital. She had a recent admission to the hospital for tension ascites and she underwent paracentesis. Today she comes to the emergency room complaining of abdominal pain she denies any rigors, any chills, any fevers, states that she has good appetite but early satiety, denies any diarrhea, any hematemesis, any melena ,any hematochezia, she has a productive cough. Preliminary workup was significant for sodium 146, chloride 104, creatinine of 0.4, hemoglobin of 9.2, hematocrit of 28 MCV of 101, AST 181 ALT [address] of abdomen and pelvis was significant for suspicion of acute cholecystitis. Less likely possibilities including chronic cholecystitis, chronic liver disease,cirrhosis, hepatosplenomegaly, portal hypertension. Patient has been admitted for further management ,assessment and evaluation and treatment. Review of Systems Review of Systems: Abdominal pain Constitutional: Constitutional: Denies chills, Denies fever(s), Denies night sweats and Denies poor appetite Eyes: Eyes: Denies change in vision ENT: Denies dysphagia, Denies nasal congestion, Denies nasal discharge, Denies nasal obstruction and Denies odynophagia Cardiovascular: Cardiovascular: Denies chest pain, Denies pedal edema, Denies claudication, Denies leg edema, Denies radiating jaw, neck or arm pain, Denies palpitations, Denies dyspnea and Denies dyspnea on exertion Respiratory: Respiratory: Denies change in phlegm color, Reports chest congestion, Reports cough, Denies excessive phlegm production, Denies dyspnea and Denies wheezing Gastrointestinal: Gastrointestinal: Reports abdominal pain, Denies dyspepsia, Denies diarrhea, Denies nausea and Denies vomiting Genitourinary: Genitourinary: Reports no additional female genitourinary complaints and Reports as per HPI Musculoskeletal: Musculoskeletal: Denies myalgias, Denies arthralgias, Denies joint swelling and Denies muscle cramps Integumentary/Breasts: Skin/Breast: Denies rash Neurologic: Denies vertigo, Denies dizziness, Denies syncope, Denies focal weakness and Denies Sensory deficit (Neuro) Psychiatric: Psychiatric: Reports no additional psychiatric complaints and Reports as per HPI Endocrine: Endocrine: Reports no additional endocrine complaints and Reports as per HPI Hematologic/Lymphatic: Hematologic/Lymphatic: Reports no additional hematologic/lymphatic complaints and Reports as per HPI Allergic/Immunologic: Allergic/Immunologic: Reports no additional allergic/immunologic complaints and Reports as per HPI PMFSH Past Medical History Medical History Abdominal pain Alcoholic hepatitis with ascites Alcoholism Anxiety Cirrhosis, alcoholic Depression H/O: HTN (hypertension) HTN (hypertension), benign Psoriasis Surgical History Surgical History No history of previous surgery Family History Family History Mother Lung cancer Hypertension Depression Anxiety Social History Social History Social History: The patient stated that she has not smoked in the last week and that she is quitting. The patient has 3 children. 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 The patient lives with her who is her durable power supervisor color paste mixing for healthcare. The patient desires to be a full code. The patient stated th
[2021-08-18] VITALS (8 sets, daily range): BP systolic 102–132; BP diastolic 74–82; PULSE 71–94; RESP 16–18; TEMP 36.4–37.3; O2SAT 94–100; BMI 16.9
--- NOTE | 2021-08-18 01:23 | ED.ABDPAIN ---
HPI - Abdominal Pain General Chief Complaint: Abdominal Pain Stated Complaint: ABd pain Time Seen by Provider: 08/17/21 20:31 Source: patient Mode of arrival: ambulatory Limitations: clinical condition History of Present Illness HPI narrative: 45-year-old female Here for abdominal pain Patient has a known history of alcoholic liver disease She has been advised numerous times on alcohol cessation but continues to consume alcohol in fairly large quantities daily, and generally in the form of rum Her longest recent period of sobriety is only a couple of days and she reports that she gets bad shakes but has not had seizures or hallucinations Review of her EMR indicates that she has had large-volume paracenteses done previously, she is very slender and does not complain of being particularly swollen or distended now She has nausea but is not vomiting,-year-old very low no fever, no urinary symptoms Her pain is mainly in the right upper quadrant and right flank, she cannot think of anything other than the liquor that might have exacerbated it and nothing makes it better Related Data Home Medications Medication Instructions Recorded Confirmed folic acid 1 mg PO DAILY 07/24/21 07/24/21 furosemide 40 mg PO DAILY 07/24/21 07/24/21 spironolactone 100 mg PO DAILY 07/24/21 07/24/21 thiamine HCl (vitamin B1) [Vitamin 100 mg PO DAILY 07/24/21 07/24/21 B-1] Allergies Allergy/AdvReac Type Severity Reaction Status Date / Time No Known Allergies Allergy Verified 08/17/21 20:02 Review of Systems Review of Systems: All systems reviewed & are unremarkable except as noted in HPI and below Constitutional: Constitutional: Reports no additional constitutional complaints, Denies chills, Reports fatigue, Denies fever(s), Denies headache(s) and Reports weakness Eyes: Eyes: Reports no additional eye complaints and Denies change in vision ENT: Denies headache(s) and Denies sore throat Cardiovascular: Cardiovascular: Denies chest pain and Denies dyspnea Respiratory: Respiratory: Denies cough and Denies dyspnea Gastrointestinal: Gastrointestinal: Reports abdominal pain, Reports bloating, Denies diarrhea, Reports nausea and Denies vomiting Genitourinary: Genitourinary: Denies urinary frequency and Denies dysuria Musculoskeletal: Musculoskeletal: Denies deformity, Denies arthralgias, Denies joint swelling and Denies numbness Integumentary/Breasts: Skin/Breast: Denies rash and Denies wounds Neurologic: Denies headache(s), Denies focal weakness and Denies numbness Psychiatric: Psychiatric: Reports no additional psychiatric complaints Endocrine: Endocrine: Reports no additional endocrine complaints Hematologic/Lymphatic: Hematologic/Lymphatic: Reports no additional hematologic/lymphatic complaints Allergic/Immunologic: Allergic/Immunologic: Reports no additional allergic/immunologic complaints PMFSH Past Medical History Medical History Abdominal pain Alcoholic hepatitis with ascites Alcoholism Anxiety Cirrhosis, alcoholic Depression H/O: HTN (hypertension) HTN (hypertension), benign Psoriasis Surgical History Surgical History No history of previous surgery Family History Family History Mother Lung cancer Hypertension Depression Anxiety Social History Social History Social History: The patient stated that she has not smoked in the last week and that she is quitting. The patient has 3 children. 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 The patient lives with her who is her durable power director of front office for healthcare. The patient desires to be a full code. The patient stated that she smoked marijuana long time ago but no longer uses it. She states that
--- NOTE | 2021-08-18 02:16 | ADMGEN ---
This patient, Dena Proctor, was admitted to Medical Room 247-. Patient/family oriented to hospital policies and general routines including ID bracelet, bed and alarms, visiting hours, pain management, procedures, bathroom and other care routines, personal items, smoking policy, room service/diet, and visiting hours. Information on how to activate the Rapid Response Team has been discussed. Patient/Family are encouraged to report perceived risks to care and to ask questions if they do not understand what they are told or what they should do.
[2021-08-18] MEDS: HYDROmorphone HCL INJ (*CRX) 1 MG/ML SYR 0.4 MG IV PUSH ×2 (02:35→17:18)
[2021-08-18] MEDS: LACTATED RINGERS 1,000 ML 125 ML IV CONT (02:35)
[2021-08-18] MEDS: ALBUMIN HUMAN 25% 25 GM/100 ML 100 ML IVPB (05:56)
[2021-08-18 08:02] LABS: Hematocrit 23.9 % (37.0-47.0); Hemoglobin 7.7 g/dL (12.0-15.0); Immature Platelet Fraction Pct 2.7 % (0.9-11.2); Mean Corpuscular HGB Conc 32.2 g/dl (32-36); Mean Corpuscular Hemoglobin 32.8 pg (26-34); Mean Corpuscular Volume 101.7 fl (80-100); Mean Platelet Volume 9.4 fl (7.4-10.4); Platelet Count Result 74 k/mm3 (150-375); Red Blood Count 2.35 M/mm3 (4.2-5.4); Red Cell Distribution Width 16.9 % (11.5-14.5); White Blood Count 4.1 K/mm3 (4.5-10.0)
[2021-08-18 08:11] LABS: Alanine Aminotransferase 39 U/L (4-35); Alkaline Phosphatase 137 U/L (38-126); Anion Gap 11 mmol/L (8-16); Aspartate Amino Transferase 121 U/L (14-36); Bilirubin,Total 1.8 mg/dL (0.2-1.3); Blood Urea Nitrogen 3 mg/dL (7-17); Calcium 8.7 mg/dL (8.4-10.2); Carbon Dioxide 22 mmol/L (22-30); Chloride 108 mmol/L (98-107); Estimated CRCL calculation 111 ml/min; Estimated Glomerular Filt Rate > 60; Glucose 76 mg/dL (65-110); Potassium 3.3 mmol/L (3.4-5.0); Sodium 141 mmol/L (137-145)
[2021-08-18] MEDS: nadoloL 10 MG TABLET PO (08:38)
[2021-08-18] MEDS: THIAMINE HCL 100 MG TABLET PO (08:38)
[2021-08-18] MEDS: SPIRONOLACTONE 50 MG TABLET 100 MG PO (08:38)
[2021-08-18] MEDS: PANTOPRAZOLE SODIUM IV 40 MG VIAL IV PUSH ×2 (08:38→17:18)
[2021-08-18] MEDS: FOLIC ACID 1 MG TABLET PO (08:38)
--- NOTE | 2021-08-18 10:50 | P.PNIM_ITS ---
Progress Note: A&P Assessment and Plan (1) Cholecystitis: Code(s): K81.9 - Cholecystitis, unspecified Status: Acute Assessment and Plan: Concern for acute cholecystitis based on CT scan with RUQ pain. * General surgery consultation appreciated * Right upper quadrant ultrasound is pending * Continue Primaxin * Continue IV fluids * Analgesics and antiemetics available as needed * NPO except ice chips currently (2) Cirrhosis, alcoholic: Qualifiers: Ascites presence: with ascites Qualified Code(s): K70.31 - Alcoholic cirrhosis of liver with ascites Code(s): K70.30 - Alcoholic cirrhosis of liver without ascites Status: Acute Assessment and Plan: Secondary to alcohol abuse. 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 Estes at [facility] and has had recent hospitalization for ascites with paracentesis. MELD score is 12. * Continue home regimen of spironolactone, nadolol, furosemide. * She has mild thrombocytopenia which will be monitored. * LFTs persistently elevated * Total bilirubin slightly improved today. * No evidence of ascites on exam today. * Continue to monitor closely * Consider gastroenterology consultation if any issues arise (3) Macrocytic anemia: Code(s): D53.9 - Nutritional anemia, unspecified Status: Acute Assessment and Plan: Secondary to alcoholism and liver disease. * There was decline in Hgb and Hct today from baseline though no evidence of bleeding. * Monitor H&H closely (4) Alcohol dependence: Code(s): F10.20 - Alcohol dependence, uncomplicated Status: Acute Assessment and Plan: She drinks 1/2 pint of [place] Eric daily. Last drink was on 08/17. She denies history of alcohol withdrawal symptoms and did not have any withdrawal symptoms during her last hospitalization lasting for 6 days. * CIWA protocol has been initiated * Ativan as needed for CIWA >8 * Thiamine and folic acid supplementation * digital traffic coordinator consult to discuss resources for alcohol cessation * Alcohol cessation is absolutely imperative and will continue to be reinforced. (5) Cough: Code(s): R05.9 - Cough, unspecified Status: Acute Assessment and Plan: Persistent hacking cough noted on exam * Obtain CXR to evaluate * Expectorants (6) Tobacco dependence: Code(s): F17.200 - Nicotine dependence, unspecified, uncomplicated Status: Acute Assessment and Plan: She is down to 6 cigarettes per day. While smoking cessation is important, at this time it would be prudent to focus on alcohol cessation. Declines need for nicotine patch. Subjective Date/time seen: 08/18/21 10:50 Interval history: Date of service: 08/18/2021 Dena Proctor is a 45-year-old female with a history cirrhosis secondary to alcohol abuse,, hypertension, anxiety, and depression who is seen in follow-up for abdominal pain. She reports sharp pain in her right upper quadrant that she rates as 6/10. Notes that is improved significantly from last night. She endorses nausea and during my encounter had an episode of yellow bilious emesis. She thinks this is from her medications and not being able to eat anything when taking them. She has been coughing quite a bit. She denies sputum production. She denies shortness of breath. No chest pain or palpitations. She does endorse dizziness upon standing which has been a longstanding issue. She denies tremors. She does endorse sweats and anxiety. No hallucinations. Denies alcohol withdrawal dur
--- NOTE | 2021-08-18 10:50 | PM.IMPN ---
Progress Note: A&P Assessment and Plan (1) Cholecystitis: Code(s): K81.9 - Cholecystitis, unspecified Status: Acute Assessment and Plan: Concern for acute cholecystitis based on CT scan with RUQ pain. General surgery consultation appreciated Right upper quadrant ultrasound is pending Continue Primaxin Continue IV fluids Analgesics and antiemetics available as needed NPO except ice chips currently (2) Cirrhosis, alcoholic: Qualifiers: Ascites presence: with ascites Qualified Code(s): K70.31 - Alcoholic cirrhosis of liver with ascites Code(s): K70.30 - Alcoholic cirrhosis of liver without ascites Status: Acute Assessment and Plan: Secondary to alcohol abuse. She is established with harness repairer Dr. Estes at [facility] and has had recent hospitalization for ascites with paracentesis. MELD score is 12. Continue home regimen of spironolactone, nadolol, furosemide. She has mild thrombocytopenia which will be monitored. LFTs persistently elevated Total bilirubin slightly improved today. No evidence of ascites on exam today. Continue to monitor closely Consider gastroenterology consultation if any issues arise (3) Macrocytic anemia: Code(s): D53.9 - Nutritional anemia, unspecified Status: Acute Assessment and Plan: Secondary to alcoholism and liver disease. There was decline in Hgb and Hct today from baseline though no evidence of bleeding. Monitor H&H closely (4) Alcohol dependence: Code(s): F10.20 - Alcohol dependence, uncomplicated Status: Acute Assessment and Plan: She drinks 1/2 pint of [place] Eric daily. Last drink was on 08/17. She denies history of alcohol withdrawal symptoms and did not have any withdrawal symptoms during her last hospitalization lasting for 6 days. CIWA protocol [facility] as needed for CIWA >8 Thiamine and folic acid supplementation psych coordinator consult to discuss resources for alcohol cessation Alcohol cessation is absolutely imperative and will continue to be reinforced. (5) Cough: Code(s): R05.9 - Cough, unspecified Status: Acute Assessment and Plan: Persistent hacking cough noted on exam Obtain CXR to evaluate Expectorants (6) Tobacco dependence: Code(s): F17.200 - Nicotine dependence, unspecified, uncomplicated Status: Acute Assessment and Plan: She is down to 6 cigarettes per day. While smoking cessation is important, at this time it would be prudent to focus on alcohol cessation. Declines need for nicotine patch. Subjective Date/time seen: 08/18/21 10:50 Interval history: Date of service: 08/18/2021 Dena Proctor is a 45-year-old female with a history cirrhosis secondary to alcohol abuse,, hypertension, anxiety, and depression who is seen in follow-up for abdominal pain. She reports sharp pain in her right upper quadrant that she rates as 6/10. Notes that is improved significantly from last night. She endorses nausea and during my encounter had an episode of yellow bilious emesis. She thinks this is from her medications and not being able to eat anything when taking them. She has been coughing quite a bit. She denies sputum production. She denies shortness of breath. No chest pain or palpitations. She does endorse dizziness upon standing which has been a longstanding issue. She denies tremors. She does endorse sweats and anxiety. No hallucinations. Denies alcohol withdrawal during her last hospitalization. Review of Systems Review of Systems: All systems reviewed & are unremarkable except as noted in HPI and below Exam Narrative: Ms. Proctor is a malnourished, chronically ill-appearing 45-year-old female who is sitting up in bed. She appears comfortable and is in NARD. Neuro: awake, alert and oriented x4, speech clear, no focal neuro deficits noted, no tremors HEENMT
[2021-08-18] MEDS: ONDANSETRON INJ 4 MG/2 ML VIAL IV PUSH (12:13)
--- NOTE | 2021-08-18 12:13 | PM.CNGS ---
Assessment and Plan Assessment and plan (1) Right upper quadrant pain: Code(s): R10.11 - Right upper quadrant pain Status: Acute Assessment and Plan: I have reviewed the CT and ultrasound. Findings are somewhat inconclusive for cholecystitis. The imaging findings could go along with her cirrhosis and recent ascites. She does have continued pain and nausea and vomiting which could be related to ongoing cholecystitis. She has no cholelithiasis to explain a cause. Unfortunately given her cirrhosis, portal hypertension, and thrombocytopenia, she is an extremely high risk surgical candidate. She would have a very high chance for severe intra-abdominal bleeding with surgery which would require transfusion and could also ultimately lead to . I would recommend trying to avoid surgery if at all possible, and even avoid any procedures with the gallbladder such as cholecystostomy tube given her ascites and cirrhosis. Continue medical management with antiemetics, antibiotics, and pain control. If surgery is necessary, she may be better suited being transferred to a tertiary care facility. (2) Cirrhosis, alcoholic: Qualifiers: Ascites presence: with ascites Qualified Code(s): K70.31 - Alcoholic cirrhosis of liver with ascites Code(s): K70.30 - Alcoholic cirrhosis of liver without ascites Status: Acute (3) Thrombocytopenia: Code(s): D69.6 - Thrombocytopenia, unspecified Status: Acute (4) Portal hypertension: Code(s): K76.6 - Portal hypertension Status: Acute (5) Alcoholism: Code(s): F10.20 - Alcohol dependence, uncomplicated Status: Acute (6) Tobacco dependence: Code(s): F17.200 - Nicotine dependence, unspecified, uncomplicated Status: Acute (7) Severe protein-calorie malnutrition: Code(s): E43 - Unspecified severe protein-calorie malnutrition Status: Acute History of Present Illness Consult details Consult date: 08/18/21 Reason for consult: abdominal pain Requesting physician: Compa Poe MD Narrative: This is a 45-year-old woman who presented to the emergency department overnight upper abdominal pain. She states that her pain started about 3 days ago. She does not recall anything in particular that she ate that cause the pain. She does admit that she did drink more alcohol recently. She has been having nausea and vomiting and abdominal pain since it started. She denies any fevers. The patient has a known history of cirrhosis. She has a machine crater at [facility] that she follows. She was recently in the hospital couple weeks ago for uncontrolled ascites. She required multiple paracenteses. CT was performed in the emergency department overnight and this did show a distended gallbladder and gallbladder wall thickening. She had a follow-up gallbladder ultrasound this morning which showed gallbladder distention but no clear signs of cholelithiasis. She states that her cirrhosis is secondary to alcohol use. She denies any prior history of hepatitis. Review of Systems Review of Systems: All systems reviewed & are unremarkable except as noted in HPI and below Constitutional: Constitutional: Denies chills, Denies fever(s), Reports poor appetite and Reports weight loss Eyes: Eyes: Denies change in vision ENT: Denies hearing loss, Denies neck pain and Denies sore throat Cardiovascular: Cardiovascular: Denies chest pain and Denies dyspnea Respiratory: Respiratory: Denies cough, Denies dyspnea and Denies wheezing Gastrointestinal: Gastrointestinal: Reports as per HPI Genitourinary: Genitourinary: Denies hematuria and Denies dysuria Musculoskeletal: Musculoskeletal: Denies arthralgias, Denies joint swelling and Denies neck pain Allergic/Immunologic: Allergic/Immunologic: Denies wheezing [facility] Past Medical History Medical History Abdominal pain Alcoholic hepatitis with
[2021-08-18] MEDS: POTASSIUM CHLORIDE 20 MEQ TABLET PO (14:18)
[2021-08-18] MEDS: LACTATED RINGERS 1,000 ML 75 ML IV CONT (17:18)
[2021-08-18] MEDS: guaiFENesin 12 HR 600 MG TABCR PO (20:58)
[2021-08-19] VITALS: BP 121/69; PULSE 78; RESP 16; TEMP 36.8; O2SAT 95
[2021-08-19 04:00] VITALS: BP 121/70; BP 122/74; PULSE 83; RESP 16; TEMP 36.8; O2SAT 94
[2021-08-19 06:20] LABS: Basophils Percent Auto 0.4 % (0.2-1.2); Eosinophils Absolute Auto 0.1 K/mm3 (0-0.3); Eosinophils Percent Auto 2.9 % (0-4.4); Hematocrit 26.1 % (37.0-47.0); Hemoglobin 8.3 g/dL (12.0-15.0); Immature Granulocyte Absolute 0.02 K/mm3 (0.00-0.031); Immature Granulocyte Percent A 0.4 % (0-0.5); Immature Platelet Fraction Pct 4.5 % (0.9-11.2); Lymphocytes Absolute Auto 0.75 K/mm3 (0.9-3.2); Lymphocytes Percent Auto 15.4 % (18.3-44.2); Mean Corpuscular HGB Conc 31.8 g/dl (32-36); Mean Corpuscular Hemoglobin 33.2 pg (26-34); Mean Corpuscular Volume 104.4 fl (80-100); Mean Platelet Volume 10.1 fl (7.4-10.4); Monocytes Absolute Auto 0.3 K/mm3 (0.1-0.6); Monocytes Percent Auto 5.1 % (2.6-8.5); Neutrophils Absolute Auto 3.7 K/mm3 (1.3-6.7); Neutrophils Percent Auto 75.8 % (45.5-73.1); Platelet Count Result 59 k/mm3 (150-375); Red Cell Distribution Width 16.3 % (11.5-14.5); White Blood Count 4.9 K/mm3 (4.5-10.0)
[2021-08-19 06:38] LABS: Alanine Aminotransferase 31 U/L (4-35); Albumin Level 3.7 g/dL (3.5-5.1); Alkaline Phosphatase 138 U/L (38-126); Anion Gap 11 mmol/L (8-16); Aspartate Amino Transferase 93 U/L (14-36); Bilirubin,Total 2.9 mg/dL (0.2-1.3); Blood Urea Nitrogen 4 mg/dL (7-17); Carbon Dioxide 21 mmol/L (22-30); Chloride 103 mmol/L (98-107); Estimated CRCL calculation 91 ml/min; Estimated Glomerular Filt Rate > 60; Glucose 78 mg/dL (65-110); Lipase 35 U/L (23-300); Potassium 3.8 mmol/L (3.4-5.0); Sodium 135 mmol/L (137-145)
--- NOTE | 2021-08-19 08:58 | PM.EVENT ---
Event Note Event Note Event Note: At 8:50 am I received a call from the nurse that the patient was leaving against medical advice and her had arrived to pick her up. I spoke with the patient who stated that she wanted to go home as I know what's wrong with me and it's not going to get better. She has follow up appointment scheduled with her primary care provider in 4 days. She was agreeable to taking antibiotics for her UTI and I prescribed 5 days of macrobid with a probiotic. Informed her that should she have any worsening in symptoms or other worrisome signs/symptoms, she should proceed to the emergency department.
--- NOTE | 2021-08-19 10:15 | PC.NURSE ---
Called into patients room around 0840. Patient stated she was leaving AMA and that she had already called her to come get her. Elizabeth AREVALO notified and MANTACHIE papers were signed. Elizabeth AREVALO came and spoke with patient. Patient left at 0852.
== END 2021-08-19 08:52 | disposition left against medical advice (07) ==
LOC: ANHED 20:31 → ANH2MED 08-18 01:46
PROVIDERS: Admitting Provider Internal Medicine; Emergency Provider Emergency Medicine; PCP Physician Assistant; Visit Provider Physician Assistant
DX: R10.11 Right upper quadrant pain (principal); K70.31 Alcoholic cirrhosis of liver with ascites; K70.11 Alcoholic hepatitis with ascites; N39.0 Urinary tract infection, site not specified; D69.6 Thrombocytopenia, unspecified; K76.6 Portal hypertension; D53.9 Nutritional anemia, unspecified; E43 Unspecified severe protein-calorie malnutrition; E80.6 Other disorders of bilirubin metabolism; F10.20 Alcohol dependence, uncomplicated; F17.210 Nicotine dependence, cigarettes, uncomplicated; I10 Essential (primary) hypertension; R05.9 Cough, unspecified
CPT/HCPCS: 36415; 71046; 74177; 76705; 80053; 80307; 81001; 81025; 83690; 85025; 85027; 85055; 85610; 87077; 87086; 87088; 87186; 96361; 96365; 96366; 96367; 96375; 96376; 99285; A9270; C9113; G0378; G0379; J0696; J0743; J1170; J2405; J7120; P9047; Q9967

== ENCOUNTER 2021-10-08 12:14 | Inpatient (IN) | payer OTHER, SELFPAY ==
[2021-10-08] VITALS (36 sets, daily range): BP systolic 63–103; BP diastolic 36–78; PULSE 75–103; RESP 11–26; TEMP 36.4–36.7; O2SAT 94–100
--- NOTE | ~2021-10-08 | CT_ITS ---
EXAMINATION: CT abdomen pelvis wo con DATE: 10/08/2021 16:13 INDICATION: Abdominal pain. Nausea and vomiting. TECHNIQUE: Computed tomography (CT) of the abdomen and pelvis was performed without intravenous contr ast. Automated exposure control and iterative reconstruction technique were employed. The dose-length product was 200.75 mGy-cm. COMPARISON: CT abdomen and pelvis 08/17/2021, 12/05/2020 FINDINGS: The visualized portions of the lung bases demonstrate mild atelectasis. No pleural effusion . The heart size is normal. No pericardial effusion. The liver demonstrates steatosis and surface nod ularity, consistent with cirrhosis. Gallbladder wall thickening is seen, likely secondary to intersti tial edema. The spleen, pancreas, adrenal glands, and kidneys are normal. There is a splenorenal port acaval shunt. There are no dilated loops of bowel. The appendix is normal. There is wall thickening o f the colon and some loops of small bowel. There is a moderate volume of ascites. There are no pathol ogically enlarged lymph nodes. There is a benign bone island in left ilium. IMPRESSION: 1. Cirrhosis of the liver with portal venous hypertension. 2. Moderate volume of ascites. 3. Wall thickening of the colon and some loops of small bowel, likely secondary to interstitial edema . Enterocolitis may have the same appearance. Reviewed, dictated and finalized at location A. SALESPERSON IMPRESSION: 1. Cirrhosis of the liver with portal venous hypertension. 2. Moderate volume of ascites. 3. Wall thickening of the colon and some loops of small bowel, likely secondary to interstitial edema. Enterocolitis may have the same appearance.
--- NOTE | ~2021-10-08 | XR_ITS ---
XR chest 1V portable DATE: 10/12/2021 06:01 INDICATION: Acute respiratory failure TECHNIQUE: Portable AP chest on 10/12/2021 at 0535 hours COMPARISON: 10/11/2021 AP chest at 0510 hours FINDINGS: ET tube tip approximately 6.3 cm above latoya. [place] range is 2-5 centimeters. NG tube in body of stomach. Left leg venous catheter tip overlies upper right atrium. No pneumothorax is evident. There is atelectasis/consolidation in the left mid and lower lung zones; there is diminished left upp er lobe atelectasis and/or consolidation and air bronchograms and improvement of leftward shift of he art and mediastinum since 10/11/2021. IMPRESSION: Interval improvement of left upper lobe consolidation since 10/11/2021 ET tube 6.3 cm above latoya; ideal range is 2.5 cm Reviewed, dictated and finalized at location A. STANT PROFESSOR OF FORESTRY IMPRESSION: Interval improvement of left upper lobe consolidation since 2 ET tube 6.3 cm above latoya; ideal range is 2.5 cm
--- NOTE | ~2021-10-08 | US_ITS ---
EXAMINATION: US paracentesis abd w/image DATE: 10/09/2021 16:20 INDICATION: Ascites. TECHNIQUE: The procedure and its risks, benefits, and alternatives were discussed with the patient. P otential risks discussed included bleeding and infection. The skin was prepped and draped in sterile fashion. 1% lidocaine was used for local anesthesia. Under ultrasound guidance, a 5 Fr catheter with trochar was advanced into the ascites in the right lower quadrant. Fluid was aspirated. The catheter was removed, and a dressing was applied. There were no immediate complications. FINDINGS: Ultrasound images demonstrate ascites and the catheter within the fluid. IMPRESSION: 1. Successful ultrasound-guided paracentesis yielding 1800 mL of yellow fluid. Reviewed, dictated and finalized at location A. TECHNIST
--- NOTE | ~2021-10-08 | XR_ITS ---
XR chest 1V portable DATE: 10/11/2021 06:11 INDICATION: Acute respiratory failure TECHNIQUE: Portable AP chest on 10/11/2021 at 0510 hours COMPARISON: Portable AP chest on 10/10/2021 1141 hours FINDINGS: There is prominent left lung atelectasis with air bronchograms particularly in the left mid to upper lung in addition to left retrocardiac area, with leftward shift of the heart mediastinum. There is diffuse interstitial infiltrate of the right lung with relative sparing of the right apex. No pleural effusion or pneumothorax is evident. ET tube tip is approximately 5.8 cm above latoya. NG tube in stomach. Left subclavian central venous catheter tip is situated at the upper right atrium. IMPRESSION: Left lung atelectasis with leftward shift of heart and mediastinum Diffuse interstitial infiltrate of the right lung Reviewed, dictated and finalized at location A. CLEANER
--- NOTE | ~2021-10-08 | XR_ITS ---
EXAMINATION: XR chest 1V portable DATE: 10/14/2021 05:39 INDICATION: Acute respiratory failure. TECHNIQUE: A single frontal view of the chest was obtained. COMPARISON: Chest single view 10/13/2021 FINDINGS: There is complete opacification of left hemithorax with volume loss. There are mild airspac e opacities in right mid and lower lung zones. No right-sided pleural effusion. No pneumothorax. A le ft-sided central venous catheter is seen with tip in right atrium. The nasogastric tube tip is beyond the inferior margin of the radiograph, but at least to the stomach. IMPRESSION: 1. New complete opacification of left hemithorax with volume loss, likely mucus plugging and atelecta sis. 2. Mild airspace opacities in right mid and lower lung zones with worsening in right lower lung zone, consistent with pulmonary edema versus pneumonia. Reviewed, dictated and finalized at location A. T STOCK CLERK IMPRESSION: 1. New complete opacification of left hemithorax with volume loss, likely mucus plugging and atelectasis. 2. Mild airspace opacities in right mid and lower lung zones with worsening in right lower lung zone, consistent with pulmonary edema versus pneumonia.
--- NOTE | ~2021-10-08 | US_ITS ---
EXAMINATION: US paracentesis abd w/image DATE: 10/13/2021 10:10 INDICATION: Ascites. TECHNIQUE: The procedure and its risks, benefits, and alternatives were discussed with Nate tubbs. Potential risks discussed included bleeding and infection. The skin was prepped and draped in st erile fashion. 1% lidocaine was used for local anesthesia. Under ultrasound guidance, a 5 Fr catheter with trochar was advanced into the ascites in the right lower quadrant. Fluid was aspirated. The cat heter was removed, and a dressing was applied. There were no immediate complications. FINDINGS: Ultrasound images demonstrate ascites and the catheter within the fluid. IMPRESSION: 1. Successful ultrasound-guided paracentesis yielding 2,100 mL of yellow fluid. Reviewed, dictated and finalized at location A. CAL EQUIPMENT REPAIR TECHNICIAN IMPRESSION: 1. Successful ultrasound-guided paracentesis yielding 2,100 mL of yellow fluid .
--- NOTE | ~2021-10-08 | XR_ITS ---
EXAMINATION: XR abdomen NG/feed tube insert EXAM DATE: 10/13/2021 16:11 INDICATION: Nasogastric tube insertion. TECHNIQUE: Frontal projection(s) of the abdomen for interpretation. Comparison is made to prior exami nation from 10/10/2021. FINDINGS: Feeding tube is in position. There is left pleural effusion and adjacent airspace disease with interval improvement. Nonobstructive upper abdominal bowel gas pattern. IMPRESSION: Feeding tube in position. Reviewed, dictated and finalized at location A. EY RESEARCH TEACHER IMPRESSION: Feeding tube in position.
--- NOTE | ~2021-10-08 | XR_ITS ---
EXAMINATION: XR chest port-a-cath/central DATE: 10/08/2021 15:40 INDICATION: Central line placement. TECHNIQUE: A single frontal view of the chest was obtained on 2 radiographs. COMPARISON: Chest 2 views 08/18/2021 FINDINGS: The chest demonstrates clear lungs without pneumonia, pleural effusion, or pneumothorax. Th e heart size is normal. There is a left-sided central venous catheter with tip in proximal right atri um. IMPRESSION: 1. Central venous catheter tip in proximal right atrium. Reviewed, dictated and finalized at location A. GER DIGITAL
--- NOTE | ~2021-10-08 | XR_ITS ---
XR chest 1V portable DATE: 10/10/2021 10:14 INDICATION: Shortness of breath TECHNIQUE: 10/10/2021 portable AP chest at 1006 hours COMPARISON: 10/08/2021 portable AP chest FINDINGS: There is left lung atelectasis and infiltrate, involving particularly the left lower lobe, with associated leftward shift of the heart mediastinum. There is mild patchy infiltrate in the right lower and to a lesser extent mid lung whaley. No pneumothorax is evident. Heart size is likely within normal range considering magnification associated with AP projection. No apparent pleural effusion. IMPRESSION: Left lung, particularly left lower lobe, atelectasis with associated leftward shift of he art mediastinum Patchy right mid and to a greater extent lower lung infiltrate and/atelectasis Reviewed, dictated and finalized at location A. ERMAKER IMPRESSION: Left lung, particularly left lower lobe, atelectasis with associate d leftward shift of heart mediastinum Patchy right mid and to a greater extent lower lung infiltrate and/atelectasis
--- NOTE | ~2021-10-08 | XR_ITS ---
EXAMINATION: XR chest 1V portable EXAM DATE: 10/13/2021 06:22 INDICATION: Acute respiratory failure . TECHNIQUE: Portable AP frontal chest x-ray was obtained. Comparison is made to prior examination from 10/12/2021. FINDINGS: Endotracheal tube tip is 4 centimeters above the latoya. There is a nasogastric tube seen with tip collimated off the study, but below the left hemidiaphragm. There is a left-sided subclavian venous line in position. Small amount of right upper lobe, left upper and lower lobe airspace disease, pneumonia or edema, wit h considerable improvement in the left-sided airspace disease compared to last 2 days. There are no sizable pleural effusions. There is no pneumothorax suspected. Cardiomediastinal silhouette is no rmal. The bones and soft tissues are unremarkable. IMPRESSION: 1. Line and tube(s) in position. 2. Improving left-sided pneumonia or edema. Reviewed, dictated and finalized at location G. MONIA SOLUTION PREPARER
--- NOTE | ~2021-10-08 | US_ITS ---
EXAMINATION: US renal BI EXAM DATE: 10/10/2021 15:13 INDICATION: Elevated creatinine. TECHNIQUE: Multiple grayscale and Doppler images of the kidneys were obtained (by a technologist who performed the scan) and subsequently reviewed. There is no prior study for comparison. FINDINGS: There is moderate amount of ascites. Right kidney: There is normal contour and increased echogenicity. It measures 10.2 x 4.5 x 4.9 centi meters. There are no focal renal lesions identified. There is no hydronephrosis. Left kidney: There is normal contour and increased echogenicity. It measures 10.3 x 5.7 x 5.8 centim eters. There are no focal renal lesions identified. There is no hydronephrosis. Cordon catheter balloon anchor in the bladder, mild bladder distention. No evidence of blood clot surr ounding the Cordon catheter. IMPRESSION: 1. Echogenic renal cortices consistent with medical renal disease. 2. No hydronephrosis. Reviewed, dictated and finalized at location A. CTOR FIXED INCOME
--- NOTE | ~2021-10-08 | CT_ITS ---
EXAMINATION: CT brain wo con DATE: 10/10/2021 10:55 INDICATION: Encephalopathy. TECHNIQUE: Computed tomography (CT) of the head was performed without intravenous contrast. The mA wa s adjusted according to patient size. Iterative reconstruction technique was employed. The dose-lengt h product was 605.33 mGy-cm. COMPARISON: None FINDINGS: There is no intracranial hemorrhage, acute infarction, or abnormal intracranial mass lesion . The ventricles are normal in size. There is mild mucosal thickening in the paranasal sinuses. The o rbits are normal. The mastoid air cells are normal. IMPRESSION: 1. Normal brain. Reviewed, dictated and finalized at location A. MENTATION SUPERVISOR IMPRESSION: 1. Normal brain.
--- NOTE | ~2021-10-08 | XR_ITS ---
EXAMINATION: XR chest ET placement, XR abdomen NG/feed tube insert DATE: 10/10/2021 12:00 INDICATION: Endotracheal tube placement and orogastric tube placement. TECHNIQUE: 1. Portable supine AP view of the chest was obtained. 2. Portable AP supine view of the abdomen was obtained. COMPARISON: Chest radiograph dated 10/08/2021 FINDINGS: Chest: Endotracheal tube tip 2.3 cm above the latoya. Persistent consolidation in the left lower lung zone w ith hazy airspace opacities throughout the remainder of the more cephalad left hemithorax consistent with a likely moderate-sized posterior layering pleural effusion with associated left lower lobar ate lectasis and/or pneumonia. Right lung is clear. No pneumothorax or right-sided pleural effusion. Hear t size is normal. Abdomen: Nasogastric tube tip in proximal side port in the body of the stomach. No dilated loops of gas-filled bowel in the visualized upper abdomen. IMPRESSION: 1. Endotracheal tube and nasogastric tube in expected positions. 2. Opacities throughout the left hemithorax consistent with moderate size pleural effusion and associ ated left lower lobar atelectasis and/or pneumonia. Reviewed, dictated and finalized at location B. [place] ADVERTISING EXECUTIVE IMPRESSION: 1. Endotracheal tube and nasogastric tube in expected positions. 2. Opacities throughout the left hemithorax consistent with moderate size pleur al effusion and associated left lower lobar atelectasis and/or pneumonia.
--- NOTE | 2021-10-08 12:59 | ED.GENADULT ---
HPI - General Adult General Chief complaint: Abdominal Pain Stated complaint: abdominal pain, dizziness Time Seen by Provider: 10/08/21 12:58 Source: patient History of Present Illness HPI narrative: Patient is a 46 y/o female complaining generalized abdominal pain for 2 weeks. She describes her pain as aching and rates it as 10/10. She started to have vomiting with blood, weakness and dizziness since yesterday. There is no alleviating or exacerbating factor. She state that she has been passing out frequently. She has known history of alcoholic cirrhosis. She did drink recently. Related Data Home Medications Medication Instructions Recorded Confirmed folic acid 1 mg PO DAILY 07/24/21 10/09/21 furosemide 40 mg PO DAILY 07/24/21 10/09/21 spironolactone 100 mg PO DAILY 07/24/21 10/09/21 thiamine HCl (vitamin B1) [Vitamin 100 mg PO DAILY 07/24/21 10/09/21 B-1] nadolol 10 mg PO DAILY 08/18/21 10/09/21 omeprazole 20 mg PO DAILY 08/18/21 10/09/21 Allergies Allergy/AdvReac Type Severity Reaction Status Date / Time No Known Allergies Allergy Verified 10/09/21 13:07 Review of Systems Constitutional: Constitutional: Denies chills, Denies fever(s), Denies headache(s) and Reports weakness Eyes: Eyes: Reports blurry vision ENT: Denies headache(s) and Denies neck pain Cardiovascular: Cardiovascular: Denies chest pain and Denies dyspnea Respiratory: Respiratory: Denies cough and Denies dyspnea Gastrointestinal: Gastrointestinal: Reports abdominal pain, Denies diarrhea, Reports nausea, Reports vomiting and Reports hematemesis Genitourinary: Genitourinary: Denies hematuria and Denies dysuria Musculoskeletal: Musculoskeletal: Denies back pain and Denies neck pain Neurologic: Reports syncope, Denies headache(s) and Denies weakness [facility] Past Medical History Medical History (Updated 10/09/21 @ 02:38 by Divya Wick DO) Abdominal pain Alcoholic hepatitis with ascites Alcoholism Anxiety Cirrhosis, alcoholic Depression Essential hypertension Portal hypertension Psoriasis Severe protein-calorie malnutrition Tobacco dependence Surgical History Surgical History (Updated 10/09/21 @ 02:12 by Divya Wick DO) History of esophagogastroduodenoscopy (EGD) No evidence of varices noted on EGD 12/2020. Gastritis and hiatal hernia noted Family History Family History Mother Lung cancer Hypertension Depression Anxiety Social History Social History (Updated 10/09/21 @ 02:20 by Divya Wick DO) Social History: She has smoked as much as 1.5 packs of cigarettes per day but has cut down to half pack of cigarettes per day this year. She is and has has 3 children. 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 The patient stated that she smoked marijuana long time ago but no longer uses it. The patient drinks beer. She has had an issue with alcohol abuse for approximately 20 years. She no longer drinks on a daily basis with the last time she did drink several beers was a couple of days ago. Primary care physician: Dr. Rodrigo Watts Code status: Full code Surrogate decision maker: Smoking packs per day: 1 Smoking cigarettes per day: 20.0 Years smoked: 30 Smoking pack-years: 30.00 Smoking status: Current every day smoker Tobacco type: cigarettes Second hand tobacco smoke exposure: Yes Alcohol intake: current Drinks per week: 3 Substance use: never Substance use type: does not use Other substance usage details: Pt currently drinks 2 liquor drinks per day. Pt states I am an alcoholic Gender identity (if verbalized by the patient): Female Spiritual care concerns: No Exam Const: General: no acute distress and ill appearing Nutritional Appearance: malnourished Orientation/consciousness: oriented to person, oriented to place, oriented to t
[2021-10-08 13:09] LABS: Basophils Percent Auto 0.3 % (0.2-1.2); Eosinophils Percent Auto 0.1 % (0-4.4); Immature Granulocyte Percent A 1.7 % (0-0.5); Lymphocytes Absolute Auto 1.27 K/mm3 (0.9-3.2); Lymphocytes Percent Auto 11.1 % (18.3-44.2); Mean Corpuscular HGB Conc 29.7 g/dl (32-36); Mean Corpuscular Hemoglobin 34.2 pg (26-34); Mean Corpuscular Volume 114.9 fl (80-100); Mean Platelet Volume 10.1 fl (7.4-10.4); Monocytes Absolute Auto 1.8 K/mm3 (0.1-0.6); Monocytes Percent Auto 15.2 % (2.6-8.5); Neutrophils Absolute Auto 8.2 K/mm3 (1.3-6.7); Neutrophils Percent Auto 71.6 % (45.5-73.1); Platelet Count Result 87 k/mm3 (150-375); Red Blood Count 1.61 M/mm3 (4.2-5.4); White Blood Count 11.5 K/mm3 (4.5-10.0)
[2021-10-08 13:21] LABS: Albumin Level 2.8 g/dL (3.5-5.1); Blood Urea Nitrogen 9 mg/dL (7-17); Calcium 7.3 mg/dL (8.4-10.2); Chloride 88 mmol/L (98-107); Estimated CRCL calculation 18 ml/min; Estimated Glomerular Filt Rate 21; Glucose 91 mg/dL (65-110); Lipase 31 U/L (23-300)
[2021-10-08 13:22] LABS: Alkaline Phosphatase 128 U/L (38-126); Anion Gap 25 mmol/L (8-16); Carbon Dioxide 18 mmol/L (22-30); Sodium 131 mmol/L (137-145)
[2021-10-08 13:23] LABS: Hematocrit 18.5 % (37.0-47.0); Hemoglobin 5.5 g/dL (12.0-15.0)
[2021-10-08 13:24] LABS: Anisocytosis 1+ (NORMAL); Hypochromasia 1+ (NORMAL); Platelet Estimate Decreased (Adequate); Potassium 2.3 mmol/L (3.4-5.0)
[2021-10-08 13:25] LABS: Bilirubin,Total 30.3 mg/dL (0.2-1.3)
[2021-10-08 13:26] LABS: Aspartate Amino Transferase 143 U/L (14-36)
[2021-10-08 13:28] LABS: Alanine Aminotransferase 38 U/L (4-35)
[2021-10-08 13:33] LABS: Prothrombin Time 49.4 Seconds (11.1-14.7)
[2021-10-08 13:34] LABS: Partial Thromboplastin Time 57.9 SECONDS (22.3-36.8)
[2021-10-08 13:35] LABS: INR 5.7
[2021-10-08] MEDS: PANTOPRAZOLE SODIUM IV 40 MG VIAL IV PUSH ×2 (14:32→21:59)
[2021-10-08] MEDS: SODIUM CHLORIDE 0.9% IV 250 ML 30 ML IV CONT ×2 (14:33→15:38)
[2021-10-08] MEDS: POTASSIUM CHLORIDE 20 MEQ TABLET 40 MEQ PO (14:34)
[2021-10-08] MEDS: OCTREOTIDE ACETATE 50 MCG/ML VIAL IV PUSH (15:45)
[2021-10-08] MEDS: PHYTONADIONE 5 MG TABLET 10 MG PO (15:45)
--- NOTE | 2021-10-08 15:50 | PC.NURSE ---
pt had bout of coffee ground emesis shortly after taking vitamin k tablets.
[2021-10-08] MEDS: SODIUM CHLORIDE 0.9% IV 1,000 ML 999 ML IV CONT (16:25)
--- NOTE | 2021-10-08 17:00 | PC.NURSE ---
pts boubacar contacted and made aware of pts condition. is attempting to find childcare for youngest child
[2021-10-08] MEDS: PHYTONADIONE INJ 10 MG/ML AMP SUB-Q (17:04)
[2021-10-08 19:50] LABS: Potassium 3.1 mmol/L (3.4-5.0)
[2021-10-08 19:52] LABS: Lactic Acid Reflex 8.3 mmol/L (0.7-2.1)
[2021-10-08 19:53] LABS: Hemoglobin 4.9 g/dL (12.0-15.0)
[2021-10-08 19:54] LABS: Hematocrit 15.6 % (37.0-47.0)
[2021-10-08] MEDS: NOREPINEPHRINE 8 MG/D5W 250 ML 8 MG/250 ML BAG 18.75 MG IV CONT (20:24)
[2021-10-08] MEDS: SODIUM BICARBONATE 8.4% 50 MEQ/50 ML SYRINGE (20:37)
--- NOTE | 2021-10-08 20:46 | PM.IMHP ---
H&P: HPI History of Present Illness Date/Time: 10/08/21 20:46 Chief Complaint: Turning yellow, abdominal swelling Narrative: 46-year-old female with past medical history of chronic alcohol abuse, tobacco abuse and alcoholic cirrhosis who presented to the ER from home with the abdominal pain for 2 weeks. She reports generalized aching abdominal pain is 10 on 10 in nature associated with increased abdominal swelling from baseline. Is been accompanied by 3 days of nausea and vomiting. Her emesis has been karsten a matted emesis. She has been having watery stools but denies any black stools or bloody stools. At the time of my evaluation the patient had a large amount of bright red hematemesis. She has becoming lightheaded and weak and has been passing out frequently. She last drank alcohol 2 days ago. She has been having associated shortness of breath but denies any chest pain. She is alert orient x3 and denies any confusion. She always is somewhat jaundice but has been progressively more yellow. She came to the ER when her emesis persisted. She denies any fevers or chills. At the time my evaluation the patient had already received 1 unit of FFP and 2 units of PRBCs. Despite receiving blood transfusion patient's hemoglobin had dropped from 5.5 down to 4.9. The patient had been hypotensive since presentation to the ER. Patient received blood and 1 L of IV fluid in the ER. ER staff placed left subclavian central line. On my review the patient's chart the patient is still hypotensive in Levophed and 1 unit of FFP was ordered as well as stat labs.. Labs demonstrated the patient's hemoglobin was still dropping as well as increasing thrombocytopenia and worsening lactic acidosis. Large volume transfusion order set was utilized and patient received 4 units of packed red blood cells, 1 unit of platelets, and 2 units of FFP. The patient had received vitamin K in the ER as well. Repeat INR did improved from 5.7 down to 2.7. Although the patient adamantly denies having bloody stools nursing staff reports that the patient has had numerous frankly bloody stools in large quantities. Review of Systems Review of Systems: 12 systems were reviewed with pertinent positives and negatives per HPI. Except as documented in the HPI, all other systems were reviewed and are negative. [facility] Past Medical History Medical History (Updated 01/03/22 @ 02:38 by Divya Wick DO) Abdominal pain Alcoholic hepatitis with ascites Alcoholism Anxiety Cirrhosis, alcoholic Depression Essential hypertension Portal hypertension Psoriasis Severe protein-calorie malnutrition Tobacco dependence Surgical History Surgical History (Updated 10/09/21 @ 02:12 by Divya Wick DO) History of esophagogastroduodenoscopy (EGD) No evidence of varices noted on EGD 12/2020. Gastritis and hiatal hernia noted Family History Family History Mother Lung cancer Hypertension Depression Anxiety Social History Social History (Updated 10/09/21 @ 02:20 by Divya Wick DO) Social History: She has smoked as much as 1.5 packs of cigarettes per day but has cut down to half pack of cigarettes per day this year. She is and has has 3 children. 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 The patient stated that she smoked marijuana long time ago but no longer uses it. The patient drinks beer. She has had an issue with alcohol abuse for approximately 20 years. She no longer drinks on a daily basis with the last time she did drink several beers was a couple of days ago. Primary care physician: Dr. Rodrigo Watts Code status: Full code Surrogate decision maker: Smoking packs per day: 0.5 Smoking cigarettes per day: 10.0 Years smoked: 20 Smoking pack-years: 10.00 Smoking status: Current some day smoker Tobacco type: cigarettes S
[2021-10-08 21:57] LABS: Basophils Percent Auto 0.3 % (0.2-1.2); Eosinophils Percent Auto 0.3 % (0-4.4); Hematocrit 21.8 % (37.0-47.0); Immature Granulocyte Absolute 0.15 K/mm3 (0.00-0.031); Immature Granulocyte Percent A 1.5 % (0-0.5); Immature Platelet Fraction Pct 6.9 % (0.9-11.2); Lymphocytes Absolute Auto 2.11 K/mm3 (0.9-3.2); Lymphocytes Percent Auto 20.8 % (18.3-44.2); Mean Corpuscular HGB Conc 32.1 g/dl (32-36); Mean Corpuscular Hemoglobin 31.7 pg (26-34); Mean Corpuscular Volume 98.6 fl (80-100); Monocytes Absolute Auto 1.2 K/mm3 (0.1-0.6); Monocytes Percent Auto 11.8 % (2.6-8.5); Neutrophils Absolute Auto 6.6 K/mm3 (1.3-6.7); Neutrophils Percent Auto 65.3 % (45.5-73.1); Platelet Count Result 65 k/mm3 (150-375); Red Blood Count 2.21 M/mm3 (4.2-5.4); Red Cell Distribution Width 22.4 % (11.5-14.5); White Blood Count 10.1 K/mm3 (4.5-10.0)
[2021-10-08 22:05] LABS: Ammonia 131 umol/L (9-30)
[2021-10-08 22:13] LABS: INR 2.7
[2021-10-08 22:14] LABS: Alkaline Phosphatase 69 U/L (38-126); Anion Gap 22 mmol/L (8-16); Aspartate Amino Transferase 121 U/L (14-36); Bilirubin,Total 23.1 mg/dL (0.2-1.3); Blood Urea Nitrogen 12 mg/dL (7-17); Calcium 6.1 mg/dL (8.4-10.2); Carbon Dioxide 19 mmol/L (22-30); Chloride 93 mmol/L (98-107); Estimated CRCL calculation 17 ml/min; Estimated Glomerular Filt Rate 19; Glucose 101 mg/dL (65-110); Magnesium 0.8 mg/dL (1.6-2.3); Potassium 2.9 mmol/L (3.4-5.0); Sodium 134 mmol/L (137-145)
[2021-10-08 22:22] LABS: Alanine Aminotransferase 35 U/L (4-35)
[2021-10-08 22:27] LABS: Hypochromasia 1+ (NORMAL); Platelet Estimate Decreased (Adequate)
[2021-10-08 22:28] LABS: Anisocytosis 1+ (NORMAL); Poikilocytosis 1+ (NORMAL)
[2021-10-08 22:29] LABS: Burr Cells 1+ (NORMAL)
[2021-10-08 22:32] LABS: Reflex Lactic Acid Yes or No Add Lactic
[2021-10-08] MEDS: SODIUM BICARBONATE 8.4% 50 MEQ/50 ML SYRINGE 100 MEQ IV PUSH (22:37)
[2021-10-08 22:57] LABS: Fibrinogen 67 mg/dl (215-510)
[2021-10-09] VITALS (30 sets, daily range): BP systolic 81–112; BP diastolic 47–95; PULSE 76–96; RESP 7–28; TEMP 35.9–37.1; O2SAT 88–100
[2021-10-09] MEDS: SODIUM CHLORIDE 0.9% IV 1,000 ML 125 ML IV CONT ×2 (00:49→09:24)
[2021-10-09] MEDS: SODIUM CHLORIDE 0.9% IV 250 ML 30 ML IV CONT ×2 (00:49→00:50)
[2021-10-09] MEDS: KCL 40 MEQ/WATER 100 ML 100 ML 25 ML IVPB ×2 (00:59→17:21)
[2021-10-09] MEDS: MAGNESIUM SULF 4 GM/WATER100ML 4 GM/100 ML BAG IVPB (02:15)
[2021-10-09] MEDS: CALCIUM GLUCONATE 1,000 MG/10 ML VIAL 1000 MG IV PUSH (02:19)
[2021-10-09] MEDS: METOCLOPRAMIDE HCL INJ 10 MG/2 ML VIAL IV PUSH ×2 (02:19→09:27)
--- NOTE | 2021-10-09 02:45 | PC.NURSE ---
Pt found w/ an O2 sat of 90%, placed on 3L NC at this time. Pt O2 currently 97%
[2021-10-09 02:49] LABS: Hematocrit 26.4 % (37.0-47.0); Hemoglobin 9.1 g/dL (12.0-15.0)
[2021-10-09] MEDS: THIAMINE HCL 200 MG/2 ML VIAL 100 MG IV PUSH ×2 (04:04→09:25)
[2021-10-09] MEDS: CALCIUM GLUC 1,000 MG/NS 50 ML 1,000 MG/50 ML BAG 100 MG IVPB (04:16)
[2021-10-09 05:35] LABS: Hematocrit 23.3 % (37.0-47.0); Hemoglobin 8.2 g/dL (12.0-15.0); Immature Platelet Fraction Pct 3.9 % (0.9-11.2); Mean Corpuscular HGB Conc 35.2 g/dl (32-36); Mean Corpuscular Hemoglobin 30.7 pg (26-34); Mean Corpuscular Volume 87.3 fl (80-100); Mean Platelet Volume 10.3 fl (7.4-10.4); Platelet Count Result 80 k/mm3 (150-375); Red Blood Count 2.67 M/mm3 (4.2-5.4); Red Cell Distribution Width 19.1 % (11.5-14.5); White Blood Count 6.9 K/mm3 (4.5-10.0)
[2021-10-09 05:44] LABS: INR 2.3; Partial Thromboplastin Time 44.1 SECONDS (22.3-36.8); Prothrombin Time 24.8 Seconds (11.1-14.7)
[2021-10-09 05:47] LABS: D Dimer 3.29 ug/mL (<0.48)
[2021-10-09 05:53] LABS: Alanine Aminotransferase 22 U/L (4-35); Albumin Level 2.2 g/dL (3.5-5.1); Alkaline Phosphatase 71 U/L (38-126); Anion Gap 15 mmol/L (8-16); Aspartate Amino Transferase 112 U/L (14-36); Bilirubin,Total 25.4 mg/dL (0.2-1.3); Blood Urea Nitrogen 14 mg/dL (7-17); Calcium 6.7 mg/dL (8.4-10.2); Carbon Dioxide 24 mmol/L (22-30); Chloride 94 mmol/L (98-107); Estimated CRCL calculation 16 ml/min; Estimated Glomerular Filt Rate 18; Glucose 152 mg/dL (65-110); Lactic Acid Reflex 5.8 mmol/L (0.7-2.1); Magnesium 2.6 mg/dL (1.6-2.3); Potassium 3.6 mmol/L (3.4-5.0); Sodium 133 mmol/L (137-145)
[2021-10-09 05:56] LABS: Fibrinogen 90 mg/dl (215-510)
--- NOTE | 2021-10-09 09:10 | PM.IMPN ---
Progress Note: A&P Assessment and Plan (1) GI (gastrointestinal hemorrhage): Qualifiers: GI bleed type/associated pathology: unspecified gastrointestinal hemorrhage type Qualified Code(s): K92.2 - Gastrointestinal hemorrhage, unspecified Code(s): K92.2 - Gastrointestinal hemorrhage, unspecified Status: Acute Assessment and Plan: Likely secondary to chronic liver failure, an hepatic gastropathy. GI currently following. There was no evidence of varices noted on EGD 12/2020. (2) Acute blood loss anemia: Code(s): D62 - Acute posthemorrhagic anemia Status: Acute Assessment and Plan: Monitor serial hemoglobin hematocrit. Patient is stabilizing with an hemoglobin of 8.2 this morning. (3) Hemorrhagic shock: Code(s): R57.8 - Other shock Status: Acute (4) Alcohol dependence: Qualifiers: Substance use status: other alcohol-induced disorder Qualified Code(s): F10.288 - Alcohol dependence with other alcohol-induced disorder Code(s): F10.20 - Alcohol dependence, uncomplicated Status: Acute (5) Cirrhosis of liver with ascites: Qualifiers: Hepatic cirrhosis type: alcoholic cirrhosis Qualified Code(s): K70.31 - Alcoholic cirrhosis of liver with ascites Code(s): K74.60 - Unspecified cirrhosis of liver; R18.8 - Other ascites Status: Acute (6) Hyperammonemia: Code(s): E72.20 - Disorder of urea cycle metabolism, unspecified Status: Acute (7) Acute renal failure: Qualifiers: Acute renal failure type: unspecified Qualified Code(s): N17.9 - Acute kidney failure, unspecified Code(s): N17.9 - Acute kidney failure, unspecified Status: Acute Assessment and Plan: Acute on a legal kidney injury, likely prerenal versus ischemic 80 mL in the setting of hypotension and acute blood loss. Keep MAP more than 60. Avoid nephrotoxic medication. Avoid please renally dose medication. Blood pressure improving with systolic in the 90s. Baseline creatinine was normal as of July with a creatinine 0.5 diet 0.5, which is a baseline. (8) Hypomagnesemia: Code(s): E83.42 - Hypomagnesemia Status: Acute Assessment and Plan: Supplemented (9) Hypokalemia: Code(s): E87.6 - Hypokalemia Status: Acute Assessment and Plan: Supplemented Additional Plan Patient has hemorrhagic shock with multiorgan system failure including a crude acute on chronic liver failure and acute renal failure. The patient received 2 units of packed red blood cells in the ER and despite blood transfusion had dropping hemoglobin. She had only received 1 L normal saline fluids of this was not delusional affect. The patient continues to have large volume of both oral and rectal blood loss. Subsequently massive blood transfusion order set was utilized and patient received 4 units of packed red blood cells transfused with over pressure bag. Two of which were 0- type nonspecific. She also received a total of 4 units of FFP 1 cryoprecipitate and 1 platelets. The patient had been started on octreotide and received a Protonix 40 mg IV x1 in the ER. An additional 40 mg has been ordered in the patient has been placed on a Protonix drip. The patient also received vitamin K in the ER. The patient remains NPO. Gastroenterology is not available for procedure today and there are no beds available at [facility] where the patient has been evaluated in the past. Her last EGD was performed by Dr. Hoyt. She does not have a history of varices. Dr. Jose patrick was called and notified of the patient's continued large volume of GI blood loss. Plan is to scope the patient in a.m.. Reglan was added to the patient's medication regimen. The patient's meld score is 39. Her predicted mortality is close to 80%. The patient is an alcoholic his still actively drinking. Component of her liver failure is li
--- NOTE | 2021-10-09 10:49 | WPDANESEPPF ---
Anes - Initial Pre Proc Eval Procedure: Operation Date: 10/09/21 14:30 Proposed Procedures p Esophagogastroduodenoscopy - Jimmy Hoyt MD Date/Time: 10/09/21 10:49 Surgeon: Jordi Trevino DO Pre Op Diagnosis: acute blood loss anemia, cirrhosis Patient Data Age: 46 Gender: F Height: 1.68 m Weight: 44 kg Last Vital Signs Temp 36.6 C 10/09/21 01:03 Pulse 94 10/09/21 10:01 Resp 25 H 10/09/21 10:01 BP 98/64 L 10/09/21 10:01 Pulse Ox 95 10/09/21 10:01 Allergies Allergy/AdvReac Type Severity Reaction Status Date / Time No Known Allergies Allergy Verified 10/09/21 13:07 Home Medications Medication Instructions Recorded Confirmed Type folic acid 1 mg PO DAILY 07/24/21 10/09/21 History furosemide 40 mg PO DAILY 07/24/21 10/09/21 History spironolactone 100 mg PO DAILY 07/24/21 10/09/21 History thiamine HCl (vitamin B1) [Vitamin 100 mg PO DAILY 07/24/21 10/09/21 History B-1] nadolol 10 mg PO DAILY 08/18/21 10/09/21 History omeprazole 20 mg PO DAILY 08/18/21 10/09/21 History Laboratory Tests 10/08/21 10/08/21 10/08/21 12:54 12:54 12:54 WBC 11.5 K/mm3 H K/mm3 (4.5-10.0) RBC 1.61 M/mm3 L M/mm3 (4.2-5.4) Hgb 5.5 g/dL L* g/dL (12.0-15.0) Hct 18.5 % L* % (37.0-47.0) MCV 114.9 fl H fl (80-100) MCH 34.2 pg H pg (26-34) MCHC 29.7 g/dl L g/dl (32-36) RDW TNP Plt Count 87 k/mm3 L k/mm3 (150-375) MPV 10.1 fl fl (7.4-10.4) Immature Gran % (Auto) 1.7 % H % (0-0.5) Neut % (Auto) 71.6 % % (45.5-73.1) Lymph % (Auto) 11.1 % L % (18.3-44.2) Webb % (Auto) 15.2 % H % (2.6-8.5) Eos % (Auto) 0.1 % % (0-4.4) Baso % (Auto) 0.3 % % (0.2-1.2) Lymph # (Auto) 1.27 K/mm3 K/mm3 (0.9-3.2) Webb # (Auto) 1.8 K/mm3 H K/mm3 (0.1-0.6) Eos # (Auto) 0.0 K/mm3 K/mm3 (0-0.3) Baso # (Auto) 0.0 K/mm3 K/mm3 (0.0-0.1) Abs Immat Gran (auto) 0.20 K/mm3 H K/mm3 (0.00-0.031) Absolute Neuts (auto) 8.2 K/mm3 H K/mm3 (1.3-6.7) Absolute Nucleated RBC 0.0 K/mm3 K/mm3 (0.0-0.012) Nucleated RBC % 0.0 % % (0.0-0.2) Platelet Estimate Decreased (Adequate) % Immature Plt Fraction Hypochromasia 1+ (NORMAL) Poikilocytosis Anisocytosis 1+ (NORMAL) Michelle Cells PT 49.4 Seconds H Seconds (11.1-14.7) INR 5.7 H* APTT 57.9 SECONDS H SECONDS (22.3-36.8) Fibrinogen D-Dimer Sodium 131 mmol/L L mmol/L (137-145) Potassium 2.3 mmol/L L* mmol/L (3.4-5.0) Chloride 88 mmol/L L mmol/L (98-107) Carbon Dioxide 18 mmol/L L mmol/L (22-30) Anion Gap 25 mmol/L H mmol/L (8-16) BUN 9 mg/dL D mg/dL (7-17) Creatinine 2.50 mg/dL H D mg/dL (0.7-1.0) Estim Creat Clear Calc 18 ml/min ml/min Estimated GFR 21 L (59 - ) Glucose 91 mg/dL mg/dL (65-110) Lactic Acid Calcium 7.3 mg/dL L mg/dL (8.4-10.2) Magnesium Total Bilirubin 30.3 mg/dL H mg/dL (0.2-1.3) AST 143 U/L H U/L (14-36) ALT 38 U/L H U/L (4-35) Alkaline Phosphatase 128 U/L H U/L (38-126) Ammonia Total Protein 7.0 g/dL g/dL (6.3-8.2) Albumin 2.8 g/dL L g/dL (3.5-5.1) Lipase 31 U/L U/L (23-300) Blood Type Antibody Screen Crossmatch 10/08/21 10/08/21 10/08/21 13:02 19:24 19:24 WBC RBC Hgb Hct MCV MCH MCHC RDW Plt Count MPV Immature Gran % (Auto) Neut % (Au
--- NOTE | 2021-10-09 10:54 | WPDGICN ---
Assessment and Plan Assessment and plan (1) Acute blood loss anemia: Code(s): D62 - Acute posthemorrhagic anemia Status: Acute Assessment and Plan: will proceed with urgent EGD, differential include ulcers, esophagitis, varices (last time did not have varices but evidence of portal hypertensive gastropathy but now with severe alcoholic hepatitis) continue with iv protonix, octreotide drip, antibiotics already on levophed because SBP ~ 80 she will be admitted to icu (2) Melena: Code(s): K92.1 - Melena Status: Acute Assessment and Plan: urgent egd unfortunately she still has been drinking (3) Acute alcoholic hepatitis: Code(s): K70.10 - Alcoholic hepatitis without ascites Status: Acute Assessment and Plan: severe AH with discriminant function 94 and MELD score 48 however after medical treatment bili and inr improved some high risk for mortality and poor prognosis specially if she does not quit drinking icu care, continue levophed to keep MAP > 65 she will need to follow-up with hepatology for liver transplant evaluation (4) Acute renal failure: Qualifiers: Acute renal failure type: unspecified Qualified Code(s): N17.9 - Acute kidney failure, unspecified Code(s): N17.9 - Acute kidney failure, unspecified Status: Acute Assessment and Plan: could be from dehydration, acute bleeding, hypotension but also HRS continue with iv albumin and levophed (5) Acute liver failure: Code(s): K72.00 - Acute and subacute hepatic failure without coma Status: Acute Assessment and Plan: high meld score supportive care in icu (6) Hyperammonemia: Code(s): E72.20 - Disorder of urea cycle metabolism, unspecified Status: Acute Assessment and Plan: she is not confused but noted asterixis will start xifaxan (7) Alcohol dependence: Qualifiers: Substance use status: other alcohol-induced disorder Qualified Code(s): F10.288 - Alcohol dependence with other alcohol-induced disorder Code(s): F10.20 - Alcohol dependence, uncomplicated Status: Acute Assessment and Plan: thiamine, nutrition support etoh cessation (8) Abdominal ascites: Qualifiers: Ascites type: due to alcoholic hepatitis Qualified Code(s): K70.11 - Alcoholic hepatitis with ascites Code(s): R18.8 - Other ascites Status: Acute Assessment and Plan: will get paracentesis to assess if sbp already on antibiotics GI Consult Note Consult date/time: 10/09/21 10:54 Reason for consult: melena and decompensated alcoholic cirrhosis HPI: Dena Proctor is a 46 year old female who I met when she was admitted with severe alcoholic hepatitis (MELD score was 15 and DF 51), she used to drink up to 1 pint of heavy liquor for 20 years- says that lately not drinking as much anymore. During that hospitalization she had a paracentesis, EGD did not showed varices but had PHG. She was evaluated at some point by teaching supervisor at [facility] but has not had any more follow-up. She is here with worsening abdominal discomfort for last 2 weeks, also increase abdominal girth and 3 days of dark stool and coffee ground emesis, also noted more jaundice than usual. ER evaluation revealed elevated liver enzymes with bili 30, ast 130, alt 30, amonia 120, inr 5.7 (down to 2.7 after FFP and vit K), plat 65, creat 2.7, lactic 10 also severe anemia with hemoglobin had dropped from 5.5 down to 4.9. She was also hypotensive and started on iv levophed, admitted to ICU but still waiting bed in ER. During previous hospitalization had negative hepatitis and work up for other chronic liver disease negative. Review of Systems Constitutional: Constitutional: Reports fatigue and Reports weakness Eyes: Eyes: Reports no additional eye complaints ENT: Reports Normal hearing present Cardiovascular: Cardiovascular: Reports lightheadedness Respiratory:
[2021-10-09] MEDS: LACTATED RINGERS 1,000 ML 150 ML IV CONT (11:00)
--- NOTE | 2021-10-09 11:05 | PC.NURSE ---
Patient transported to GI for procedure on Tele, medications infusing, with RN and surgical nurse.
--- NOTE | 2021-10-09 11:30 | SUR.OPER ---
Pt being transferred to ED Via stretcher with PEACE Perez and Marina Calderon pt faustina ring and hat are with pt chart.
--- NOTE | 2021-10-09 11:38 | PC.NURSE ---
Patient returns to ED after procedure. patient alert and oriented. Patient remains drowsy.
--- NOTE | 2021-10-09 13:11 | PC.NURSE ---
Patient admitted in computer. Boarded in ED.
--- NOTE | 2021-10-09 14:29 | WPDCNINT ---
Assessment and Plan Assessment and plan (1) Hemorrhagic shock: Code(s): R57.8 - Other shock Status: Acute Assessment and Plan: Hemorrhagic shock likely related to variceal bleeding/GI bleed. -patient received masses hemorrhage transfusion with 6 units of PRBC, 4 units of FFP, 1 unit of cryo, 1 unit of platelet, vitamin K -hemoglobin currently stable -EGD was done this morning with banding x3 of esophageal varices -continue monitor H&H q.6 hours - will transfuse as needed (2) GI (gastrointestinal hemorrhage): Qualifiers: GI bleed type/associated pathology: unspecified gastrointestinal hemorrhage type Qualified Code(s): K92.2 - Gastrointestinal hemorrhage, unspecified Code(s): K92.2 - Gastrointestinal hemorrhage, unspecified Status: Acute Assessment and Plan: EGD this morning which showed grade 2 esophageal varices status post 3 bands. There was moderate gastritis and moderate portal hypotensive changes in the stomach. No ulcers were seen in the proximal stomach. There is also a small gastric varix. The bulb and the 2nd portion of the duodenum a normal no ulcers or masses -GI following the patient (3) Acute renal failure: Qualifiers: Acute renal failure type: unspecified Qualified Code(s): N17.9 - Acute kidney failure, unspecified Code(s): N17.9 - Acute kidney failure, unspecified Status: Acute (4) Acute blood loss anemia: Code(s): D62 - Acute posthemorrhagic anemia Status: Acute (5) Cirrhosis of liver with ascites: Qualifiers: Hepatic cirrhosis type: alcoholic cirrhosis Qualified Code(s): K70.31 - Alcoholic cirrhosis of liver with ascites Code(s): K74.60 - Unspecified cirrhosis of liver; R18.8 - Other ascites Status: Acute Assessment and Plan: Abdominal distension with moderate volume ascites on CT scan of the abdomen pelvis done on admission on 10/08/2021 -interventional radiology will perform an ultrasound-guided thoracentesis today - albumin post paracentesis (6) Tobacco dependence: Code(s): F17.200 - Nicotine dependence, unspecified, uncomplicated Status: Acute Assessment and Plan: Discussed with patient regarding tobacco cessation, she said she will think about (7) DVT prophylaxis: Code(s): Z29.9 - Encounter for prophylactic measures, unspecified Status: Acute Assessment and Plan: SCDs Additional Plan Discussed with patient updated with her condition and plan of care. Code status: Full code Critical care time spent: 45 minute This dictation may have been done utilizing a voice recognition system. Attempts have been made to correct errors. However, there may be uncorrected grammatical, spelling, and recognition errors present. Due to a high probability of clinically significant, life threatening deterioration, the patient required my highest level of preparedness to intervene emergently and I personally spent this critical care time directly and personally managing the patient. This critical care time included obtaining a history; examining the patient; pulse oximetry; ordering and review of studies; arranging urgent treatment with development of a management plan; evaluation of patient's response to treatment; frequent reassessment; and discussions with other providers. It was exclusive of separately billable procedures and treating other patients and teaching time. Please see Assessment and Plan section and the rest of the note for further information on patient assessment and treatment Carpet Mechanic Consult Note Consult date: 10/09/21 Time Seen: 14:30 Reason for consult: Variceal bleed, hemorrhagic shock, anemia, hyperbilirubinemia, jaundice HPI: Dena Proctor is a 46 year old female with past medical history of alcoholic hepatitis with ascites, anxiety, alcoholic cirrhosis, depression, essential hypertension portal hypertension, psoriasis, severe protein calor
[2021-10-09 15:17] LABS: Basophils Absolute Auto 0.1 K/mm3 (0.0-0.1); Basophils Percent Auto 0.9 % (0.2-1.2); Eosinophils Absolute Auto 0.2 K/mm3 (0-0.3); Hematocrit 24.5 % (37.0-47.0); Hemoglobin 8.7 g/dL (12.0-15.0); Immature Granulocyte Percent A 0.9 % (0-0.5); Lymphocytes Absolute Auto 1.64 K/mm3 (0.9-3.2); Lymphocytes Percent Auto 14.1 % (18.3-44.2); Mean Corpuscular HGB Conc 35.5 g/dl (32-36); Mean Corpuscular Hemoglobin 30.1 pg (26-34); Mean Corpuscular Volume 84.8 fl (80-100); Mean Platelet Volume 10.6 fl (7.4-10.4); Monocytes Absolute Auto 1.7 K/mm3 (0.1-0.6); Monocytes Percent Auto 14.4 % (2.6-8.5); Neutrophils Absolute Auto 7.9 K/mm3 (1.3-6.7); Neutrophils Percent Auto 67.7 % (45.5-73.1); Platelet Count Result 93 k/mm3 (150-375); Red Blood Count 2.89 M/mm3 (4.2-5.4); Red Cell Distribution Width 19.9 % (11.5-14.5); White Blood Count 11.7 K/mm3 (4.5-10.0)
[2021-10-09 15:26] LABS: INR 2.5; Partial Thromboplastin Time 43.9 SECONDS (22.3-36.8); Prothrombin Time 26.3 Seconds (11.1-14.7)
[2021-10-09 15:29] LABS: D Dimer 3.67 ug/mL (<0.48)
[2021-10-09 15:38] LABS: Fibrinogen 137 mg/dl (215-510)
[2021-10-09 15:52] LABS: Alanine Aminotransferase 22 U/L (4-35); Albumin Level 2.4 g/dL (3.5-5.1); Alkaline Phosphatase 85 U/L (38-126); Anion Gap 10 mmol/L (8-16); Aspartate Amino Transferase 102 U/L (14-36); Bilirubin,Total 26.6 mg/dL (0.2-1.3); Blood Urea Nitrogen 16 mg/dL (7-17); Calcium 6.5 mg/dL (8.4-10.2); Carbon Dioxide 27 mmol/L (22-30); Chloride 95 mmol/L (98-107); Estimated CRCL calculation 16 ml/min; Estimated Glomerular Filt Rate 18; Glucose 161 mg/dL (65-110); Magnesium 2.2 mg/dL (1.6-2.3); Potassium 2.8 mmol/L (3.4-5.0); Sodium 132 mmol/L (137-145)
[2021-10-09] MEDS: PHYTONADIONE ADULT INJ 10 MG in DEXTROSE 5% IN WATER 50 ML 100 MG IVPB (15:57)
[2021-10-09] MEDS: FOLIC ACID 1 MG/0.2 ML INJ IV PUSH (15:57)
[2021-10-09] MEDS: ALBUMIN HUMAN 25% 25 GM/100 ML 100 ML IVPB ×2 (15:58→19:05)
[2021-10-09 16:11] LABS: Ammonia 88 umol/L (9-30)
[2021-10-09] MEDS: NOREPINEPHRINE 8 MG/D5W 250 ML 8 MG/250 ML BAG 13.13 MG IV CONT (16:33)
[2021-10-09 16:34] LABS: Source Peritoneal Fluid Peritoneal Fluid
[2021-10-09 16:35] LABS: Appearance Peritoneal Fluid Hazy (Clear); Color Peritoneal Fluid Yellow (Colorless); Lymphocytes Peritoneal Fluid 15 %; Macrophages Peritoneal Fluid 49 %; Mesothelial Cells Peritoneal Fluid 27 %; Neutrophils Peritoneal Fluid 9 % (0-25); Nucleated Cells Peritoneal Flu 64 /uL (0-500); RBC Peritoneal Fluid 73 /uL (0-100000)
[2021-10-09] MEDS: LORazepam INJ (*CRX) 2 MG/ML VIAL 1 MG IV PUSH (18:54)
[2021-10-09 21:27] LABS: Hematocrit 23.3 % (37.0-47.0); Hemoglobin 8.2 g/dL (12.0-15.0)
[2021-10-10] VITALS (28 sets, daily range): BP systolic 96–126; BP diastolic 66–95; PULSE 87–112; RESP 21–32; TEMP 36.7–37.2; O2SAT 32–100; BMI 17.0
[2021-10-10] MEDS: ALBUMIN HUMAN 25% 25 GM/100 ML 100 ML IVPB ×4 (01:50→17:23)
[2021-10-10 03:51] LABS: INR 2.7; Partial Thromboplastin Time 47.9 SECONDS (22.3-36.8); Prothrombin Time 28.1 Seconds (11.1-14.7)
[2021-10-10 03:52] LABS: Ammonia 87 umol/L (9-30); Anion Gap 13 mmol/L (8-16); Basophils Absolute Auto 0.1 K/mm3 (0.0-0.1); Basophils Percent Auto 0.9 % (0.2-1.2); Blood Urea Nitrogen 18 mg/dL (7-17); Calcium 7.2 mg/dL (8.4-10.2); Carbon Dioxide 25 mmol/L (22-30); Chloride 91 mmol/L (98-107); Eosinophils Absolute Auto 0.3 K/mm3 (0-0.3); Eosinophils Percent Auto 2.8 % (0-4.4); Estimated CRCL calculation 15 ml/min; Estimated Glomerular Filt Rate 16; Glucose 165 mg/dL (65-110); Hematocrit 22.8 % (37.0-47.0); Hemoglobin 7.9 g/dL (12.0-15.0); Immature Granulocyte Absolute 0.16 K/mm3 (0.00-0.031); Immature Granulocyte Percent A 1.7 % (0-0.5); Immature Platelet Fraction Pct 4.7 % (0.9-11.2); Lymphocytes Absolute Auto 1.48 K/mm3 (0.9-3.2); Lymphocytes Percent Auto 15.5 % (18.3-44.2); Magnesium 2.2 mg/dL (1.6-2.3); Mean Corpuscular HGB Conc 34.6 g/dl (32-36); Mean Corpuscular Hemoglobin 30.4 pg (26-34); Mean Corpuscular Volume 87.7 fl (80-100); Mean Platelet Volume 10.2 fl (7.4-10.4); Monocytes Absolute Auto 1.1 K/mm3 (0.1-0.6); Neutrophils Absolute Auto 6.5 K/mm3 (1.3-6.7); Neutrophils Percent Auto 68.1 % (45.5-73.1); Nucleated Red Blood Cells Perc 0.2 % (0.0-0.2); Phosphorus 1.2 mg/dL (2.5-4.5); Platelet Count Result 80 k/mm3 (150-375); Potassium 2.8 mmol/L (3.4-5.0); Red Cell Distribution Width 20.5 % (11.5-14.5); Sodium 129 mmol/L (137-145); White Blood Count 9.5 K/mm3 (4.5-10.0)
[2021-10-10] MEDS: POTASSIUM PHOS,M-BASIC-D-BASIC 40 MMOL in SODIUM CHLORIDE 0.9% IV 250 ML 43.89 MMOL IVPB (05:14)
--- NOTE | 2021-10-10 07:04 | PM.IMPN ---
Progress Note: A&P Assessment and Plan (1) Hemorrhagic shock: Code(s): R57.8 - Other shock Status: Acute Assessment and Plan: Hemorrhagic shock likely related to variceal bleeding/GI bleed. -patient received massive transfusion with 6 units of PRBC, 4 units of FFP, 1 unit of cryo, 1 unit of platelet, vitamin K -hemoglobin currently stable -EGD was done this morning with banding x3 of esophageal varices -continue monitor H&H q.6 hours - will transfuse as needed (2) GI (gastrointestinal hemorrhage): Qualifiers: GI bleed type/associated pathology: unspecified gastrointestinal hemorrhage type Qualified Code(s): K92.2 - Gastrointestinal hemorrhage, unspecified Code(s): K92.2 - Gastrointestinal hemorrhage, unspecified Status: Acute Assessment and Plan: EGD this morning which showed grade 2 esophageal varices status post 3 bands. There was moderate gastritis and moderate portal hypotensive changes in the stomach. No ulcers were seen in the proximal stomach. There is also a small gastric varix. The bulb and the 2nd portion of the duodenum a normal no ulcers or masses. Hemoglobin in the 7.9-8.2 range. -GI following the patient (3) Acute renal failure: Qualifiers: Acute renal failure type: unspecified Qualified Code(s): N17.9 - Acute kidney failure, unspecified Code(s): N17.9 - Acute kidney failure, unspecified Status: Acute Assessment and Plan: Likely pre renal versus ischemic ATN in the setting of massive GI bleeding. Given the patient body habitus and poor muscle mass, her creatinine likely overestimates her kidney. Urinary output is very poor with only 200 cc overnight. ATN is likely secondary to severe anemia due to GI bleeding causing hypotension. Per Nephrology, rule out obstruction with renal ultrasound. Obtain urine electrolytes CK level. (4) Acute blood loss anemia: Code(s): D62 - Acute posthemorrhagic anemia Status: Acute Assessment and Plan: Clinically 2 to GI bleeding secondary to esophageal viruses. Patient PRBC, cryo, FFP, platelet. (5) Cirrhosis of liver with ascites: Qualifiers: Hepatic cirrhosis type: alcoholic cirrhosis Qualified Code(s): K70.31 - Alcoholic cirrhosis of liver with ascites Code(s): K74.60 - Unspecified cirrhosis of liver; R18.8 - Other ascites Status: Acute Assessment and Plan: Abdominal distension with moderate volume ascites on CT scan of the abdomen pelvis done on admission on 10/08/2021 -PAracentesis with 1800ccs fluid drained on 10/09/2021. -interventional radiology will perform an ultrasound-guided thoracentesis today - albumin post paracentesis (6) Tobacco dependence: Code(s): F17.200 - Nicotine dependence, unspecified, uncomplicated Status: Acute Assessment and Plan: Discussed with patient regarding tobacco cessation, she said she will think about (7) DVT prophylaxis: Code(s): Z29.9 - Encounter for prophylactic measures, unspecified Status: Acute Assessment and Plan: SCDs Additional Plan Discussed with patient updated with her condition and plan of care. Code status: Full code Critical care time spent: 35 minute This dictation may have been done utilizing a voice recognition system. Attempts have been made to correct errors. However, there may be uncorrected grammatical, spelling, and recognition errors present. Due to a high probability of clinically significant, life threatening deterioration, the patient required my highest level of preparedness to intervene emergently and I personally spent this critical care time directly and personally managing the patient. This critical care time included obtaining a history; examining the patient; pulse oximetry; ordering and review of studies; arranging urgent treatment with development of a management plan; evaluation of patient's response to treatment; frequent reassessment;
--- NOTE | 2021-10-10 07:46 | PC.NURSE ---
0730-Dr. Wick at bedside to evaluate patient. Pt. less alert and moaning. Minimally responsive to commands. Stat ABG and breathing treatments ordered. 15LNRB added to the 15L high flow with increased oxygen saturations to 95%. Dr. Lundy made aware of changes in patient. Will continue to monitor.
[2021-10-10 07:51] LABS: Alveolar/Arterial O2 Gradient 614.6 mmHg; Base Excess ABG 1.9 mEq/l (+/-2.0); Fractional Inspired Oxygen 100 %; HCO3 ABG 24.9 mEq/l (22.0-26.0); Hematocrit 22.4 % (37.0-47.0); Hemoglobin 7.9 g/dL (12.0-15.0); Methemoglobin ABG 0.3 %THb (0-1.5); Oxygen Content ABG 11.2 %vol (16.0-22.0); Oxygen Saturation ABG 94.9 % (95.0-100.0); Oxyhemoglobin 91.6 % THb (90.0-100.0); PCO2 ABG 32.1 mmHg (35.0-45.0); PO2 ABG 66.3 mmHg (80.0-100.0); PO2 FiO2 Ratio Arterial Blood 0.66 %; Reduced Hemoglobin 7.1 %THb (0-5.0); Total Hemoglobin 8.6 g/dL (12.0-18.0)
[2021-10-10 07:52] LABS: Device NON-REBREATHER MASK; Modified Allen's Test Pass; Site Drawn RIGHT RADIAL; pH ABG 7.507 (7.350-7.450)
[2021-10-10] MEDS: IPRATROPIUM BR 0.02% INH SOLN 0.5 MG/2.5 ML VIAL INHALATION (08:00)
[2021-10-10] MEDS: ALBUTEROL SULFATE NEB 2.5 MG/0.5 ML INH 5 MG INHALATION (08:00)
[2021-10-10] MEDS: FOLIC ACID 1 MG/0.2 ML INJ IV PUSH (08:18)
[2021-10-10] MEDS: THIAMINE HCL 200 MG/2 ML VIAL 100 MG IV PUSH (08:18)
--- NOTE | 2021-10-10 08:50 | SUR.OPER ---
Patient was transferred back to ER with Dayana HAND. Patient stable and report given to Javier ABERNATHY in ER.
--- NOTE | 2021-10-10 11:34 | WPDPROCEDUR ---
Procedures Intubation Intubation Date: 10/10/21 Intubation Time: 11:34 A pre-procedural Time-Out was completed immediately before starting the procedure and confirmed: Patient Identification, Site, Procedure, Patient Position and the Availability of Requisite Equipment: Yes Sedative: etomidate Paralytic: rocuronium Laryngoscope: fiber optic video scope Assist device used: fiber optic device ET tube size: 7.5 Tube secured depth (cm): 23 Tube secured location: lips Tube placement confirmation: visualized tube passing through cords, equal breath sounds bilaterally, no breath sounds over epigastrium and confirmation by capnometry Patient tolerated procedure: well Intubation complications: none
--- NOTE | 2021-10-10 11:39 | PM.CNNEP ---
Assessment and Plan Assessment and plan (1) Acute renal failure: Qualifiers: Acute renal failure type: unspecified Qualified Code(s): N17.9 - Acute kidney failure, unspecified Code(s): N17.9 - Acute kidney failure, unspecified Status: Acute Assessment and Plan: The patient has acute kidney injury. Normally she has normal serum creatinine of 0.5. Her inanition makes any rise in creatinine under estimate the true degree of renal failure. Her urine output was only 200cc yesterday. And not much overnight. I suspect this is ATN secondary to severe anemia, hypotension, dehydration. Obstruction is always a possible etiology. Will get an ultrasound. Allergic interstitial nephritis and glomerulonephritis are unlikely in this clinical scenario. Will get renal ultrasound urine electrolytes and CPK. She is getting volume resuscitated as well as blood transfusions. Hemoglobin is much better. Once hemodynamically better, perhaps renal function will return. (2) Hemorrhagic shock: Code(s): R57.8 - Other shock Status: Acute Assessment and Plan: She has GI bleeding from the varices. She has received FFP to improve clotting and PRBCs to improve the hemoglobin. (3) Cirrhosis of liver with ascites: Qualifiers: Hepatic cirrhosis type: alcoholic cirrhosis Qualified Code(s): K70.31 - Alcoholic cirrhosis of liver with ascites Code(s): K74.60 - Unspecified cirrhosis of liver; R18.8 - Other ascites Status: Acute Assessment and Plan: She has longstanding alcohol abuse resulting in Laennec's cirrhosis. (4) Alcoholism: Code(s): F10.20 - Alcohol dependence, uncomplicated Status: Acute (5) Tobacco dependence: Code(s): F17.200 - Nicotine dependence, unspecified, uncomplicated Status: Acute Assessment and Plan: She continues to smoke cigarettes. History of Present Illness Reason for Consult Consult date: 10/10/21 Chief Complaint Chief complaint: acute blood loss anemia, cirrhosis History of Present Illness Narrative: Dena is an unfortunate 46-year-old lady who has chronic alcohol abuse, inanition, portal hypertension, alcoholic cirrhosis, esophageal varices with current bleeding, depression, hypertension, psoriasis, tobacco abuse. She came to the emergency room because she was turning yellow and had worsened abdominal distention. She was seen in the ER. Hemoglobin was low. She also had a very distended abdomen. She was admitted to the hospital. Had a paracentesis. she was also complaining of watery stools but no black or bloody stools. Later on she developed nausea and vomiting with blood. She was transferred to the ICU. She was seen by Dr. Yates who did an upper scope and found 3 esophageal varices which were banded. She developed severe anemia down to a hemoglobin of only 4. She was transfused with 6units of blood. She also had FFP. The patient is somewhat somnolent now and is being intubated for airway protection. In the meantime her creatinine was elevated on admission. Typically her creatinine runs around 0.5. It was last checked in August before this. However on admission her creatinine was high at 2.5 and has risen to 3.1 today. So renal consultation was requested she cannot give a history. She does take diuretics as an outpatient. She is on both spironolactone and furosemide. She does not seem to take nonsteroidal anti-inflammatory agents but it is unknown whether she took anything [id number]. [facility] Past Medical History Medical History Abdominal pain Alcoholic hepatitis with ascites Alcoholism Anxiety Cirrhosis, alcoholic Depression Essential hypertension Melena Portal hypertension Psoriasis Severe protein-calorie malnutrition Tobacco dependence Surgical History Surgical History (Reviewed 10/10/21 @ 11:46 by Henry
[2021-10-10] MEDS: PROPOFOL IV EMULSION 100 ML 2.88 MG IV CONT (11:48)
[2021-10-10 12:22] LABS: Creatine Kinase 62 U/L (30-135)
[2021-10-10 13:10] LABS: Base Excess ABG 0.6 mEq/l (+/-2.0); Fractional Inspired Oxygen 100 %; HCO3 ABG 23.3 mEq/l (22.0-26.0); Oxygen Content ABG 12.7 %vol (16.0-22.0); Oxygen Saturation ABG 99.1 % (95.0-100.0); Oxyhemoglobin 97.5 % THb (90.0-100.0); PCO2 ABG 30.3 mmHg (35.0-45.0); PO2 ABG 148.7 mmHg (80.0-100.0); PO2 FiO2 Ratio Arterial Blood 1.49 %
[2021-10-10 13:11] LABS: Device VENTILATOR; Modified Allen's Test Pass; Site Drawn RIGHT RADIAL; pH ABG 7.504 (7.350-7.450)
[2021-10-10 13:12] LABS: Arterial Blood Gas PEEP 5 cmH2O; Arterial Blood Gas Tidal Volume 300 ml; Arterial Blood Gas Vent Mode CMV; Arterial Blood Gas Ventilator rate 26 /MIN
--- NOTE | 2021-10-10 13:14 | WPDGIPROGNO ---
Progress Note: A&P Assessment and Plan (1) GI (gastrointestinal hemorrhage): Qualifiers: GI bleed type/associated pathology: unspecified gastrointestinal hemorrhage type Qualified Code(s): K92.2 - Gastrointestinal hemorrhage, unspecified Code(s): K92.2 - Gastrointestinal hemorrhage, unspecified Status: Acute Assessment and Plan: egd yesterday, probably related to EV s/p banding complete total of 3 days of iv octreotide, also continue with iv protonix on iv antibiotics (2) Alcoholic hepatitis with ascites: Code(s): K70.11 - Alcoholic hepatitis with ascites Status: Acute Assessment and Plan: on admission with severe alcoholic hepatitis with high discriminant function and MELD score will get labs to recalculate tomorrow she had to be intubated since got more obtunded s/p paracentesis, no obvious SBP but still covered with antibiotics because GIB poor prognosis (3) Acute blood loss anemia: Code(s): D62 - Acute posthemorrhagic anemia Status: Acute Assessment and Plan: hb low but stable, continue to check h/h (4) Esophageal varices in alcoholic cirrhosis: Code(s): K70.30 - Alcoholic cirrhosis of liver without ascites; I85.10 - Secondary esophageal varices without bleeding Status: Acute Assessment and Plan: will need to repeat EGD in 4-5 weeks to reassess (5) Melena: Code(s): K92.1 - Melena Status: Acute (6) Acute liver failure: Code(s): K72.00 - Acute and subacute hepatic failure without coma Status: Acute (7) Liver encephalopathy: Code(s): K72.90 - Hepatic failure, unspecified without coma Status: Acute Assessment and Plan: started on lactulose and xifaxan (8) Acute renal failure: Qualifiers: Acute renal failure type: unspecified Qualified Code(s): N17.9 - Acute kidney failure, unspecified Code(s): N17.9 - Acute kidney failure, unspecified Status: Acute Assessment and Plan: s/p levophed and nephrology on board probably HRS poor prognosis (9) Alcohol dependence: Qualifiers: Substance use status: other alcohol-induced disorder Qualified Code(s): F10.288 - Alcohol dependence with other alcohol-induced disorder Code(s): F10.20 - Alcohol dependence, uncomplicated Status: Acute Assessment and Plan: supportive care (10) Respiratory failure: Code(s): J96.90 - Respiratory failure, unspecified, unspecified whether with hypoxia or hypercapnia Status: Acute Assessment and Plan: now she is intubated Subjective Date/time seen: 10/10/21 13:14 Interval history: egd yesterday with EV varices s/p banding (found old clot in stomach but no active bleeding), she became more confused and finally intubated. Still on iv protonix and octreotide, she is in ICU. Review of Systems Review of Systems: All systems reviewed & are unremarkable except as noted in HPI and below Exam Const: Other: ill, jaundice, cachectic- now she is intubated and sedated HENMT: General nose exam: Normal nares present Other: ETT in place Eyes: Other: icteric sclerae Neck: Neck: supple Resp: Auscultation: rales and rhonchi Cardio: Rate: regular rate GI: Inspection: distended GI Palp: Yes Soft to palpation and No Tenderness to palpation present (GI) Percussion: Yes Fluid wave present (better after paracentesis) Auscultation: normal bowel sounds Urinary Catheter: Urinary Catheter: patent and draining Skin: Other: jaundice Neuro: Other: asterixis + Extrem: General: normal to inspection Psych: Other: unable to assess Objective Data Vital Signs Vital Signs: Vital Signs - 24 hr 10/09/21 13:56 10/09/21 14:00 10/09/21 15:00 Temperature 98.7 F Pulse Rate 78 80 Pulse Rate [Apical Monitor] Respiratory Rate 22 H 19 Blood Pressure 90/61 L 95/62 L Pulse Oximetry 97 93 93 10/09/21 16:00 10/09/21 18:00 10/09/21
[2021-10-10] MEDS: LACTULOSE 20 GM/30 ML UDC PO ×2 (14:48→20:38)
--- NOTE | 2021-10-10 14:49 | WPDINTPN ---
Progress Note: A&P Assessment and Plan (1) Hepatic encephalopathy: Code(s): K72.90 - Hepatic failure, unspecified without coma Status: Acute Assessment and Plan: Patient with encephalopathy/altered mental status, which could be related to hepatic and/or uremic encephalopathy -patient was intubated for airway protection -ammonia levels 88, will start lactulose, patient also on rifaximin (2) Acute respiratory failure: Code(s): J96.00 - Acute respiratory failure, unspecified whether with hypoxia or hypercapnia Status: Acute Assessment and Plan: Patient obtunded, requiring 15 L non-rebreather mask to maintain sats greater than 90%. -impending respiratory failure, patient was successfully intubated on 10/10/2021 -continue bronchodilators -continue peep of 5 and 60% FiO2 (3) Hemorrhagic shock: Code(s): R57.8 - Other shock Status: Acute Assessment and Plan: Hemorrhagic shock likely related to variceal bleeding/GI bleed. -patient received masses hemorrhage transfusion with 6 units of PRBC, 4 units of FFP, 1 unit of cryo, 1 unit of platelet, vitamin K -hemoglobin currently stable -EGD was done this morning with banding x3 of esophageal varices -continue monitor H&H q.6 hours - will transfuse as needed (4) GI (gastrointestinal hemorrhage): Qualifiers: GI bleed type/associated pathology: unspecified gastrointestinal hemorrhage type Qualified Code(s): K92.2 - Gastrointestinal hemorrhage, unspecified Code(s): K92.2 - Gastrointestinal hemorrhage, unspecified Status: Acute Assessment and Plan: EGD this morning which showed grade 2 esophageal varices status post 3 bands. There was moderate gastritis and moderate portal hypotensive changes in the stomach. No ulcers were seen in the proximal stomach. There is also a small gastric varix. The bulb and the 2nd portion of the duodenum a normal no ulcers or masses -GI following the patient (5) Acute renal failure: Qualifiers: Acute renal failure type: unspecified Qualified Code(s): N17.9 - Acute kidney failure, unspecified Code(s): N17.9 - Acute kidney failure, unspecified Status: Acute Assessment and Plan: Acute kidney injury: Likely related to severe anemia, hemorrhagic shock, hypovolemia, ATN -patient to adequately fluid-resuscitated -continue maintenance IV fluids -currently on leave will maintain mean arterial pressures greater than 65 mmHg for adequate reperfusion. -creatinine has worsened, nephrology following the patient -monitor renal function, electrolytes and urine output (6) Acute blood loss anemia: Code(s): D62 - Acute posthemorrhagic anemia Status: Acute Assessment and Plan: Anemia likely related to hematemesis in GI bleed -patient did receive massive blood transfusions and blood products -continue to monitor H&H and transfuse as needed (7) Cirrhosis of liver with ascites: Qualifiers: Hepatic cirrhosis type: alcoholic cirrhosis Qualified Code(s): K70.31 - Alcoholic cirrhosis of liver with ascites Code(s): K74.60 - Unspecified cirrhosis of liver; R18.8 - Other ascites Status: Acute Assessment and Plan: Abdominal distension with moderate volume ascites on CT scan of the abdomen pelvis done on admission on 10/08/2021 -appreciate Interventional Radiology performing ultrasound-guided paracentesis on 10/09/2021 with removal of 1800 mL of yellow fluid -patient was given albumin post paracentesis (8) Tobacco dependence: Code(s): F17.200 - Nicotine dependence, unspecified, uncomplicated Status: Acute Assessment and Plan: Discussed with patient on 10/09/2021 regarding tobacco cessation, she said she will think about (9) DVT prophylaxis: Code(s): Z29.9 - Encounter for prophylactic measures, unspecified Status: Acute Assessment and Plan: SCDs Additional Plan Discussed patient's husba
[2021-10-10] MEDS: SODIUM CHLORIDE 0.9% IV 100 ML (16:55)
[2021-10-10] MEDS: PHYTONADIONE ADULT INJ 10 MG in DEXTROSE 5% IN WATER 50 ML 100 MG IVPB (16:55)
[2021-10-10] MEDS: chlordiazePOXIDE (*CRX) 25 MG CAPSULE 50 MG PO ×2 (17:24→23:00)
[2021-10-10] MEDS: rifAXIMin 550 MG TABLET PO (20:38)
[2021-10-10] MEDS: MINERAL OIL/WHITE PETROLATUM OINTMENT 1 APPLIC EACH EYE (20:39)
[2021-10-10] MEDS: PROPOFOL IV EMULSION 100 ML 11.52 MG IV CONT (21:04)
[2021-10-10 22:01] LABS: Creatinine Urine 86.6 mg/dL; Total Protein Urine Random 30 mg/dL; Ur Ttl Prot Creatinine Ratio 0.35 mg/mg (0-0.20)
[2021-10-10 22:06] LABS: Sodium Urine Random 8 meq/L
[2021-10-11] VITALS (36 sets, daily range): BP systolic 82–109; BP diastolic 49–83; PULSE 60–99; RESP 16–28; TEMP 36.4–36.9; O2SAT 95–100
--- NOTE | 2021-10-11 02:43 | PC.NURSE ---
0000 BP 85/49. Propofol decreased to 35mcgs 0030 Bp remains in 80's. Levophed restarted at 3mcgs
[2021-10-11 04:52] LABS: Basophils Absolute Auto 0.1 K/mm3 (0.0-0.1); Basophils Percent Auto 0.7 % (0.2-1.2); Eosinophils Absolute Auto 0.2 K/mm3 (0-0.3); Eosinophils Percent Auto 1.9 % (0-4.4); Hemoglobin 7.2 g/dL (12.0-15.0); Immature Granulocyte Absolute 0.16 K/mm3 (0.00-0.031); Immature Granulocyte Percent A 1.5 % (0-0.5); Immature Platelet Fraction Pct 4.9 % (0.9-11.2); Lymphocytes Absolute Auto 1.89 K/mm3 (0.9-3.2); Lymphocytes Percent Auto 17.5 % (18.3-44.2); Mean Corpuscular HGB Conc 34.8 g/dl (32-36); Mean Corpuscular Hemoglobin 30.4 pg (26-34); Mean Corpuscular Volume 87.3 fl (80-100); Mean Platelet Volume 9.9 fl (7.4-10.4); Monocytes Absolute Auto 1.1 K/mm3 (0.1-0.6); Monocytes Percent Auto 10.3 % (2.6-8.5); Neutrophils Absolute Auto 7.4 K/mm3 (1.3-6.7); Neutrophils Percent Auto 68.1 % (45.5-73.1); Platelet Count Result 71 k/mm3 (150-375); Red Blood Count 2.37 M/mm3 (4.2-5.4); Red Cell Distribution Width 20.9 % (11.5-14.5); White Blood Count 10.8 K/mm3 (4.5-10.0)
[2021-10-11] MEDS: LACTULOSE 20 GM/30 ML UDC PO ×2 (05:02→14:52)
[2021-10-11] MEDS: chlordiazePOXIDE (*CRX) 25 MG CAPSULE 50 MG PO ×4 (05:02→23:21)
[2021-10-11 05:03] LABS: Hematocrit 20.7 % (37.0-47.0)
[2021-10-11 05:04] LABS: INR 2.7
[2021-10-11 05:05] LABS: Partial Thromboplastin Time 47.6 SECONDS (22.3-36.8)
[2021-10-11 05:07] LABS: Alanine Aminotransferase 16 U/L (4-35); Albumin Level 2.9 g/dL (3.5-5.1); Alkaline Phosphatase 75 U/L (38-126); Ammonia 65 umol/L (9-30); Anion Gap 12 mmol/L (8-16); Aspartate Amino Transferase 69 U/L (14-36); Blood Urea Nitrogen 18 mg/dL (7-17); Calcium 7.4 mg/dL (8.4-10.2); Carbon Dioxide 26 mmol/L (22-30); Chloride 90 mmol/L (98-107); Estimated CRCL calculation 14 ml/min; Estimated Glomerular Filt Rate 17; Glucose 130 mg/dL (65-110); Magnesium 1.7 mg/dL (1.6-2.3); Phosphorus 3.1 mg/dL (2.5-4.5); Potassium 2.5 mmol/L (3.4-5.0); Sodium 128 mmol/L (137-145)
[2021-10-11 05:08] LABS: Lactic Acid Reflex 1.4 mmol/L (0.7-2.1)
[2021-10-11 05:19] LABS: Bilirubin,Total 28.5 mg/dL (0.2-1.3)
[2021-10-11] MEDS: PROPOFOL IV EMULSION 100 ML 11.52 MG IV CONT (06:31)
[2021-10-11] MEDS: MAGNESIUM SULF 2 GM/WATER 50ML 2 GM/50 ML BAG IVPB (06:31)
[2021-10-11] MEDS: KCL 40 MEQ/WATER 100 ML 100 ML 25 ML IVPB (06:31)
--- NOTE | 2021-10-11 06:37 | PC.NURSE ---
0600 Dr. Castro informed of potassium and of hematocrit. orders received.
[2021-10-11 06:41] LABS: Fractional Inspired Oxygen 55 %; HCO3 ABG 25.5 mEq/l (22.0-26.0); Methemoglobin ABG 0.1 %THb (0-1.5); Oxygen Content ABG 10.9 %vol (16.0-22.0); Oxygen Saturation ABG 96.6 % (95.0-100.0); Oxyhemoglobin 94.4 % THb (90.0-100.0); PCO2 ABG 34.8 mmHg (35.0-45.0); PO2 ABG 79.4 mmHg (80.0-100.0); PO2 FiO2 Ratio Arterial Blood 1.44 %; Reduced Hemoglobin 4.5 %THb (0-5.0); Total Hemoglobin 8.1 g/dL (12.0-18.0); pH ABG 7.482 (7.350-7.450)
[2021-10-11 06:42] LABS: Arterial Blood Gas Vent Mode CMV; Arterial Blood Gas Ventilator rate 22 /MIN; Device VENTILATOR; Modified Allen's Test Unable to perform; Site Drawn RIGHT RADIAL
[2021-10-11 06:43] LABS: Arterial Blood Gas PEEP 5 cmH2O; Arterial Blood Gas Tidal Volume 300 ml
[2021-10-11] MEDS: POTASSIUM CHLORIDE 20 MEQ PACKET (FOR LIQUID) 40 MEQ FEED TUBE (08:41)
[2021-10-11] MEDS: rifAXIMin 550 MG TABLET PO ×2 (08:42→20:39)
[2021-10-11] MEDS: MINERAL OIL/WHITE PETROLATUM OINTMENT 1 APPLIC EACH EYE ×2 (08:43→20:40)
[2021-10-11] MEDS: THIAMINE HCL 200 MG/2 ML VIAL 100 MG IV PUSH (08:44)
[2021-10-11] MEDS: ACETYLCYSTEINE 20% INHAL SOLN 800 MG/4 ML VIAL 200 MG INHALATION ×3 (09:58→21:52)
[2021-10-11] MEDS: FOLIC ACID 1 MG/0.2 ML INJ IV PUSH (10:02)
[2021-10-11 10:41] LABS: Potassium 3.5 mmol/L (3.4-5.0)
--- NOTE | 2021-10-11 11:54 | PCFNICU ---
ICU Rounding Note: Pt current nutrition is NPO. Nutrition recommendation: Vital AF 1.2 goal rate at 50 ml/hr. Last recorded weight is 41.2 kg-down from 48 kg on admit. Bowel Motility:+BM reported 10/10 Labs Reviewed:Glu 165, GFR 16, BUN 18, Cr 3.10,Hct 22.8,Hgb 7.9, K 2.8 Meds Noted:Lactulose, Thiamine, Folic Acid, Levophed, Rocephin, Propofol 25 wkmo=848 kcals, Protonix, Librium Skin: WNL Additional Notes: Patient currently on mechanical vent. NPO at this time. Recommending Vital AF 1.2 at 20 ml/hr advance by 10 ml/hr to goal rate of 50 ml/hr. Free water flush 30 ml q 4 hours. Propofol providing an additional 190 kcals at 25 mics. Following daily in ICU rounds. will monitor every Saturday and Saturday.
--- NOTE | 2021-10-11 12:38 | WPDINTPN ---
Progress Note: A&P Assessment and Plan (1) Hepatic encephalopathy: Code(s): K72.90 - Hepatic failure, unspecified without coma Status: Acute Assessment and Plan: Patient with encephalopathy/altered mental status, which could be related to hepatic and/or uremic encephalopathy -patient was intubated for airway protection -ammonia levels 88, continue lactulose, ammonia level trending down - patient also on rifaximin (2) Acute respiratory failure: Code(s): J96.00 - Acute respiratory failure, unspecified whether with hypoxia or hypercapnia Status: Acute Assessment and Plan: Patient obtunded, requiring 15 L non-rebreather mask to maintain sats greater than 90%. -impending respiratory failure, patient was successfully intubated on 10/10/2021 -continue bronchodilators -continue peep of 5 and 60% FiO2 -chest x-ray and ABGs reviewed, will decrease rate to 18 and wean FiO2 to 50% and continue to wean FiO2 to maintain O2 sats greater than 92%. -chest x-ray showed left lung atelectasis, diffuse interstitial infiltrates of the right lung -will start Mucomyst and chest physiotherapy with percussion (3) Hemorrhagic shock: Code(s): R57.8 - Other shock Status: Acute Assessment and Plan: Hemorrhagic shock likely related to variceal bleeding/GI bleed. -patient received masses hemorrhage transfusion with 6 units of PRBC, 4 units of FFP, 1 unit of cryo, 1 unit of platelet, vitamin K -hemoglobin currently stable -EGD was done this morning with banding x3 of esophageal varices -hemoglobin is 7.2, will continue check H&H - will transfuse as needed (4) GI (gastrointestinal hemorrhage): Qualifiers: GI bleed type/associated pathology: unspecified gastrointestinal hemorrhage type Qualified Code(s): K92.2 - Gastrointestinal hemorrhage, unspecified Code(s): K92.2 - Gastrointestinal hemorrhage, unspecified Status: Acute Assessment and Plan: EGD this morning which showed grade 2 esophageal varices status post 3 bands. There was moderate gastritis and moderate portal hypotensive changes in the stomach. No ulcers were seen in the proximal stomach. There is also a small gastric varix. The bulb and the 2nd portion of the duodenum a normal no ulcers or masses -GI following the patient (5) Acute renal failure: Qualifiers: Acute renal failure type: unspecified Qualified Code(s): N17.9 - Acute kidney failure, unspecified Code(s): N17.9 - Acute kidney failure, unspecified Status: Acute Assessment and Plan: Acute kidney injury: Likely related to severe anemia, hemorrhagic shock, hypovolemia, ATN -patient to adequately fluid-resuscitated -continue maintenance IV fluids -currently on Levophed will maintain mean arterial pressures greater than 65 mmHg for adequate renal perfusion -creatinine has worsened, nephrology following the patient -monitor renal function, electrolytes and urine output -appreciate nephrology following the patient -she could have hepatorenal syndrome -10/10/2021: Renal ultrasound shows medical renal disease, no hydronephrosis (6) Acute blood loss anemia: Code(s): D62 - Acute posthemorrhagic anemia Status: Acute Assessment and Plan: Anemia likely related to hematemesis in GI bleed -patient did receive massive blood transfusions and blood products -continue to monitor H&H and transfuse as needed (7) Cirrhosis of liver with ascites: Qualifiers: Hepatic cirrhosis type: alcoholic cirrhosis Qualified Code(s): K70.31 - Alcoholic cirrhosis of liver with ascites Code(s): K74.60 - Unspecified cirrhosis of liver; R18.8 - Other ascites Status: Acute Assessment and Plan: Abdominal distension with moderate volume ascites on CT scan of the abdomen pelvis done on admission on 10/08/2021 -appreciate Interventional Radiology performing ultrasound-guided paracentesis on 10/09/2021 with removal of 180
--- NOTE | 2021-10-11 13:57 | WPDGIPROGNO ---
Progress Note: A&P Assessment and Plan (1) GI (gastrointestinal hemorrhage): Qualifiers: GI bleed type/associated pathology: unspecified gastrointestinal hemorrhage type Qualified Code(s): K92.2 - Gastrointestinal hemorrhage, unspecified Code(s): K92.2 - Gastrointestinal hemorrhage, unspecified Status: Acute Assessment and Plan: treated with egd, required EV banding, also noted small GV on iv octreotide, also protonix not candidate for TIPS because high MELD score 41 poor prognosis (2) Acute respiratory failure: Code(s): J96.00 - Acute respiratory failure, unspecified whether with hypoxia or hypercapnia Status: Acute Assessment and Plan: intubated, by ICU (3) Liver encephalopathy: Code(s): K72.90 - Hepatic failure, unspecified without coma Status: Acute Assessment and Plan: on lactulose and xifaxan (4) Esophageal varices in alcoholic cirrhosis: Code(s): K70.30 - Alcoholic cirrhosis of liver without ascites; I85.10 - Secondary esophageal varices without bleeding Status: Acute (5) Acute renal failure: Qualifiers: Acute renal failure type: unspecified Qualified Code(s): N17.9 - Acute kidney failure, unspecified Code(s): N17.9 - Acute kidney failure, unspecified Status: Acute Assessment and Plan: treated also with levophed (6) Hemorrhagic shock: Code(s): R57.8 - Other shock Status: Acute Assessment and Plan: on levophen (7) Acute blood loss anemia: Code(s): D62 - Acute posthemorrhagic anemia Status: Acute Assessment and Plan: continue to monitor she is post PRBC and vitamin k, FFP (8) Hypokalemia: Code(s): E87.6 - Hypokalemia Status: Acute Assessment and Plan: repleting (9) Acute liver failure: Code(s): K72.00 - Acute and subacute hepatic failure without coma Status: Acute Assessment and Plan: trend lft's high MELD score supportive care in icu Subjective Date/time seen: 10/11/21 13:57 Interval history: critically ill, still intubated and on levophed Review of Systems Review of Systems: All systems reviewed & are unremarkable except as noted in HPI and below Exam Const: Other: ill, jaundice, cachectic- intubated and sedated HENMT: General nose exam: Normal nares present Other: ETT in place Eyes: Other: icteric sclerae Neck: Neck: supple Resp: Auscultation: rales and rhonchi Cardio: Rate: regular rate GI: Inspection: distended GI Palp: Yes Soft to palpation and No Tenderness to palpation present (GI) Percussion: Yes Fluid wave present (better after paracentesis) Auscultation: normal bowel sounds Urinary Catheter: Urinary Catheter: patent and draining Skin: Other: jaundice Neuro: Other: asterixis + Extrem: General: normal to inspection Psych: Other: unable to assess Objective Data Vital Signs Vital Signs: Vital Signs - 24 hr 10/10/21 14:00 10/10/21 15:41 10/10/21 16:00 Temperature 98.1 F 98.5 F Pulse Rate 104 H 101 H 106 H Respiratory Rate 26 H 25 H 27 H Blood Pressure 123/87 119/79 121/84 Pulse Oximetry 96 95 94 10/10/21 16:49 10/10/21 17:09 10/10/21 17:39 Temperature 99.0 F Pulse Rate 91 108 H 101 H Respiratory Rate 21 H 26 H Blood Pressure 122/89 126/95 H Pulse Oximetry 96 32 L 94 10/10/21 19:55 10/10/21 20:00 10/10/21 21:04 Temperature 98.4 F Pulse Rate 102 H 91 88 Respiratory Rate 22 H 22 H Blood Pressure 113/73 Pulse Oximetry 94 96 10/10/21 22:00 10/10/21 23:20 10/10/21 23:47 Temperature Pulse Rate 100 98 88 Respiratory Rate 26 H Blood Pressure 108/70 Pulse Oximetry 95 97 10/11/21 00:00 10/11/21 00:05 10/11/21 00:18 Temperature 98.5 F Pulse Rate 86 99 Respiratory Rate 26 H Blood Pressure 85/49 L 85/49 L Pulse Oximetry 96 96 10/11/21 02:00 10/11/21 03:00 10/11/21 04:00 Temperature 98.1 F Pulse Rate 98 97 75 R
[2021-10-11] MEDS: SODIUM CHLORIDE 0.9% IV 250 ML 30 ML IV CONT (14:57)
[2021-10-11] MEDS: NOREPINEPHRINE 8 MG/D5W 250 ML 8 MG/250 ML BAG 16.88 MG IV CONT (17:23)
--- NOTE | 2021-10-11 17:42 | PM.PNNEP ---
Progress Note: A&P Assessment and Plan (1) Acute renal failure: Qualifiers: Acute renal failure type: unspecified Qualified Code(s): N17.9 - Acute kidney failure, unspecified Code(s): N17.9 - Acute kidney failure, unspecified Status: Acute Assessment and Plan: The patient has acute kidney injury. Normally she has normal serum creatinine of 0.5. Her inanition makes any rise in creatinine under estimate the true degree of renal failure. Renal ultrasound shows echogenic kidneys but size is normal urine electrolytes are pre renal total CK is normal creatinine is surprisingly stable. Her urine output Was low yesterday is a bit better today I suspect this is ATN secondary to severe anemia, hypotension, dehydration. Hepatorenal syndrome is a possibility. The urine sodium is not unmeasurable but the setting is appropriate. Volume expansion might help. Discussed with Dr Lundy who has been giving her some fluid. she is also on norepinephrine and octreotide. (2) Hemorrhagic shock: Code(s): R57.8 - Other shock Status: Acute Assessment and Plan: She has GI bleeding from the varices. She has received FFP to improve clotting and PRBCs to improve the hemoglobin. (3) Cirrhosis of liver with ascites: Qualifiers: Hepatic cirrhosis type: alcoholic cirrhosis Qualified Code(s): K70.31 - Alcoholic cirrhosis of liver with ascites Code(s): K74.60 - Unspecified cirrhosis of liver; R18.8 - Other ascites Status: Acute Assessment and Plan: She has longstanding alcohol abuse resulting in Laennec's cirrhosis. (4) Alcoholism: Code(s): F10.20 - Alcohol dependence, uncomplicated Status: Acute (5) Tobacco dependence: Code(s): F17.200 - Nicotine dependence, unspecified, uncomplicated Status: Acute Assessment and Plan: She continues to smoke cigarettes. Subjective Date/time seen: 10/11/21 17:42 Interval history: Dena is still critically ill in the ICU on pressors and octreotide. Intubated and sedated. Review of Systems Review of Systems: ROS unobtainable: Yes unobtainable due to medical condition Exam Narrative: WDWN Female looking critically ill poorly nourished in the ICU on the ventilator skin no rash head ncat lungs coarse upper airway noise cor reg no rub abd BS+ nontender and soft ext no edema. Objective Data Vital Signs Vital Signs: Vital Signs - 24 hr 10/10/21 19:55 10/10/21 20:00 10/10/21 21:04 Temperature 36.9 C Pulse Rate 102 H 91 88 Respiratory Rate 22 H 22 H Blood Pressure 113/73 Pulse Oximetry 94 96 10/10/21 22:00 10/10/21 23:20 10/10/21 23:47 Temperature Pulse Rate 100 98 88 Respiratory Rate 26 H Blood Pressure 108/70 Pulse Oximetry 95 97 10/11/21 00:00 10/11/21 00:05 10/11/21 00:18 Temperature 36.9 C Pulse Rate 86 99 Respiratory Rate 26 H Blood Pressure 85/49 L 85/49 L Pulse Oximetry 96 96 10/11/21 02:00 10/11/21 03:00 10/11/21 04:00 Temperature 36.7 C Pulse Rate 98 97 75 Respiratory Rate 26 H 28 H Blood Pressure 105/72 87/51 L Pulse Oximetry 95 95 99 10/11/21 05:45 10/11/21 06:00 10/11/21 06:31 Temperature Pulse Rate 68 69 68 Respiratory Rate 22 H 22 H 22 H Blood Pressure 91/54 L Pulse Oximetry 97 99 10/11/21 08:00 10/11/21 09:05 10/11/21 09:58 Temperature 36.4 C Pulse Rate 64 72 64 Respiratory Rate 22 H 22 H 17 Blood Pressure 91/57 L Pulse Oximetry 100 10/11/21 10:00 10/11/21 10:03 10/11/21 10:23 Temperature Pulse Rate 63 65 67 Respiratory Rate 19 17 Blood Pressure 85/60 L Pulse Oximetry 100 98 10/11/21 10:24 10/11/21 10:27 10/11/21 12:00 Temperature 36.7 C Pulse Rate 65 68 62 Respiratory Rate 18 18 Blood Pressure 84/59 L 91/63 L Pulse Oximetry 100 10/11/21 13:02 10/11/21 13:04 10/11/21 13:06 Temperature Pulse Rate 65 62 60 Respiratory Ra
--- NOTE | 2021-10-11 19:50 | PM.IMPN ---
Progress Note: A&P Assessment and Plan (1) Hemorrhagic shock: Code(s): R57.8 - Other shock Status: Acute Assessment and Plan: Hemorrhagic shock likely related to variceal bleeding/GI bleed. -patient received massive transfusion with 6 units of PRBC, 4 units of FFP, 1 unit of cryo, 1 unit of platelet, vitamin K -hemoglobin currently stable -EGD was done this morning with banding x3 of esophageal varices -continue monitor H&H q.6 hours -currently on Levophed and octreotide. - will transfuse as needed (2) GI (gastrointestinal hemorrhage): Qualifiers: GI bleed type/associated pathology: unspecified gastrointestinal hemorrhage type Qualified Code(s): K92.2 - Gastrointestinal hemorrhage, unspecified Code(s): K92.2 - Gastrointestinal hemorrhage, unspecified Status: Acute Assessment and Plan: EGD this morning which showed grade 2 esophageal varices status post 3 bands. There was moderate gastritis and moderate portal hypotensive changes in the stomach. No ulcers were seen in the proximal stomach. There is also a small gastric varix. The bulb and the 2nd portion of the duodenum a normal no ulcers or masses. Hemoglobin in the 7.9-8.2 range. -GI following the patient (3) Acute renal failure: Qualifiers: Acute renal failure type: unspecified Qualified Code(s): N17.9 - Acute kidney failure, unspecified Code(s): N17.9 - Acute kidney failure, unspecified Status: Acute Assessment and Plan: Likely pre renal versus ischemic ATN in the setting of massive GI bleeding, and hypotension requiring pressors.. Currently on octreotide and a refit. Given the patient body habitus and poor muscle mass, her creatinine likely overestimates her kidney. Urinary output is very poor with only 200 cc overnight. ATN is likely secondary to severe anemia due to GI bleeding causing hypotension. Per Nephrology, rule out obstruction with renal ultrasound. Obtain urine electrolytes CK level. (4) Acute blood loss anemia: Code(s): D62 - Acute posthemorrhagic anemia Status: Acute Assessment and Plan: Clinically 2 to GI bleeding secondary to esophageal viruses. Patient PRBC, cryo, FFP, platelet. (5) Cirrhosis of liver with ascites: Qualifiers: Hepatic cirrhosis type: alcoholic cirrhosis Qualified Code(s): K70.31 - Alcoholic cirrhosis of liver with ascites Code(s): K74.60 - Unspecified cirrhosis of liver; R18.8 - Other ascites Status: Acute Assessment and Plan: Abdominal distension with moderate volume ascites on CT scan of the abdomen pelvis done on admission on 10/08/2021 -PAracentesis with 1800ccs fluid drained on 10/09/2021. -interventional radiology will perform an ultrasound-guided thoracentesis today - albumin post paracentesis (6) Tobacco dependence: Code(s): F17.200 - Nicotine dependence, unspecified, uncomplicated Status: Acute Assessment and Plan: Discussed with patient regarding tobacco cessation, she said she will think about (7) DVT prophylaxis: Code(s): Z29.9 - Encounter for prophylactic measures, unspecified Status: Acute Assessment and Plan: SCDs Additional Plan Discussed with patient updated with her condition and plan of care. Code status: Full code Critical care time spent: 31 minutes. Subjective Date/time seen: 10/11/21 07:45 s: Patient was seen and examined at the bedside. She is intubated, on mechanical ventilation. She present generalized jaundice. Review of Systems Review of Systems: ROS unobtainable: Yes unobtainable due to endotracheal tube Exam Narrative: General: Patient is encephalopathic, in no distress HEENT: Sclera is icteric, no lymphadenopathy, no thyromegaly, ETT is in place Neck: Supple Respiratory: Coarse breath sounds bilaterally, decreased at bases Cardiac: S1-S2 normal, sinus rhythm Abdomen: Distended, firm, distant bowel sounds, nontende
[2021-10-11] MEDS: PROPOFOL IV EMULSION 100 ML 4.32 MG IV CONT (20:49)
[2021-10-12] VITALS (24 sets, daily range): BP systolic 80–112; BP diastolic 16–80; PULSE 68–89; RESP 18–26; TEMP 36.4–37.1; O2SAT 94–99
[2021-10-12] MEDS: ACETYLCYSTEINE 20% INHAL SOLN 800 MG/4 ML VIAL 200 MG INHALATION (02:10)
[2021-10-12 04:19] LABS: Basophils Absolute Auto 0.1 K/mm3 (0.0-0.1); Basophils Percent Auto 0.3 % (0.2-1.2); Eosinophils Absolute Auto 0.2 K/mm3 (0-0.3); Eosinophils Percent Auto 1.4 % (0-4.4); Hematocrit 29.4 % (37.0-47.0); Hemoglobin 10.1 g/dL (12.0-15.0); Immature Granulocyte Absolute 0.28 K/mm3 (0.00-0.031); Immature Granulocyte Percent A 1.9 % (0-0.5); Immature Platelet Fraction Pct 5.3 % (0.9-11.2); Lymphocytes Absolute Auto 1.52 K/mm3 (0.9-3.2); Lymphocytes Percent Auto 10.3 % (18.3-44.2); Mean Corpuscular HGB Conc 34.4 g/dl (32-36); Mean Corpuscular Hemoglobin 30.3 pg (26-34); Mean Corpuscular Volume 88.3 fl (80-100); Mean Platelet Volume 10.2 fl (7.4-10.4); Monocytes Absolute Auto 1.8 K/mm3 (0.1-0.6); Monocytes Percent Auto 12.5 % (2.6-8.5); Neutrophils Absolute Auto 10.9 K/mm3 (1.3-6.7); Neutrophils Percent Auto 73.6 % (45.5-73.1); Platelet Count Result 80 k/mm3 (150-375); Red Blood Count 3.33 M/mm3 (4.2-5.4); Red Cell Distribution Width 20.1 % (11.5-14.5); White Blood Count 14.8 K/mm3 (4.5-10.0)
[2021-10-12 04:30] LABS: INR 2.9; Prothrombin Time 29.5 Seconds (11.1-14.7)
[2021-10-12 04:31] LABS: Partial Thromboplastin Time 50.7 SECONDS (22.3-36.8)
[2021-10-12 04:45] LABS: Poikilocytosis 1+ (NORMAL)
[2021-10-12 04:56] LABS: Alanine Aminotransferase 18 U/L (4-35); Albumin Level 2.8 g/dL (3.5-5.1); Alkaline Phosphatase 100 U/L (38-126); Anion Gap 12 mmol/L (8-16); Aspartate Amino Transferase 79 U/L (14-36); Bilirubin,Total 30.2 mg/dL (0.2-1.3); Blood Urea Nitrogen 17 mg/dL (7-17); Carbon Dioxide 23 mmol/L (22-30); Chloride 91 mmol/L (98-107); Estimated CRCL calculation 16 ml/min; Estimated Glomerular Filt Rate 19; Glucose 130 mg/dL (65-110); Magnesium 2.3 mg/dL (1.6-2.3); Phosphorus 3.5 mg/dL (2.5-4.5); Potassium 3.1 mmol/L (3.4-5.0); Sodium 126 mmol/L (137-145)
[2021-10-12] MEDS: chlordiazePOXIDE (*CRX) 25 MG CAPSULE 50 MG PO (05:49)
[2021-10-12 06:08] LABS: Base Excess ABG 0.9 mEq/l (+/-2.0); Fractional Inspired Oxygen 50 %; HCO3 ABG 23.7 mEq/l (22.0-26.0); Methemoglobin ABG 0.1 %THb (0-1.5); Oxygen Content ABG 15.6 %vol (16.0-22.0); Oxygen Saturation ABG 98.5 % (95.0-100.0); Oxyhemoglobin 97.7 % THb (90.0-100.0); PCO2 ABG 31.9 mmHg (35.0-45.0); PO2 ABG 112.6 mmHg (80.0-100.0); PO2 FiO2 Ratio Arterial Blood 2.25 %; Reduced Hemoglobin 2.2 %THb (0-5.0); Total Hemoglobin 11.2 g/dL (12.0-18.0); pH ABG 7.489 (7.350-7.450)
[2021-10-12 06:22] LABS: Arterial Blood Gas PEEP 5 cmH2O; Arterial Blood Gas Vent Mode CMV; Arterial Blood Gas Ventilator rate 18 /MIN; Device VENTILATOR; Modified Allen's Test Unable to perform; Site Drawn LEFT RADIAL
[2021-10-12 06:23] LABS: Arterial Blood Gas Tidal Volume 300 ml
[2021-10-12] MEDS: LACTULOSE 20 GM/30 ML UDC PO ×3 (06:47→21:31)
[2021-10-12] MEDS: NOREPINEPHRINE 8 MG/D5W 250 ML 8 MG/250 ML BAG 16.88 MG IV CONT (09:17)
[2021-10-12] MEDS: POTASSIUM CHLORIDE 20 MEQ PACKET (FOR LIQUID) 40 MEQ FEED TUBE (09:18)
[2021-10-12] MEDS: KCL 40 MEQ/WATER 100 ML 100 ML 25 ML IVPB (09:19)
[2021-10-12] MEDS: FOLIC ACID 1 MG/0.2 ML INJ IV PUSH (09:19)
[2021-10-12] MEDS: rifAXIMin 550 MG TABLET PO ×2 (09:20→19:50)
[2021-10-12] MEDS: MINERAL OIL/WHITE PETROLATUM OINTMENT 1 APPLIC EACH EYE ×2 (09:21→19:51)
[2021-10-12] MEDS: THIAMINE HCL 200 MG/2 ML VIAL 100 MG IV PUSH (09:46)
[2021-10-12 10:29] LABS: Ammonia 47 umol/L (9-30)
--- NOTE | 2021-10-12 11:21 | WPDINTPN ---
Progress Note: A&P Assessment and Plan (1) Hepatic encephalopathy: Code(s): K72.90 - Hepatic failure, unspecified without coma Status: Acute Assessment and Plan: Patient with encephalopathy/altered mental status, which could be related to hepatic and metabolic encephalopathy -patient was intubated for airway protection -ammonia levels 88 which has improved to 47 - continue lactulose and rifaximin (2) Acute respiratory failure: Code(s): J96.00 - Acute respiratory failure, unspecified whether with hypoxia or hypercapnia Status: Acute Assessment and Plan: Patient obtunded, requiring 15 L non-rebreather mask to maintain sats greater than 90%. -impending respiratory failure, patient was successfully intubated on 10/10/2021 -continue bronchodilators -ABG reviewed continue peep of 5 and 50% FiO2 -chest x-ray reviewed-advance ET tube by 3 cm -atelectasis improved. -patient may have aspirated hence I will change the antibiotics to Zosyn (3) Hemorrhagic shock: Code(s): R57.8 - Other shock Status: Acute Assessment and Plan: Hemorrhagic shock likely related to variceal bleeding/GI bleed. -patient received masses hemorrhage transfusion with 6 units of PRBC, 4 units of FFP, 1 unit of cryo, 1 unit of platelet, vitamin K -hemoglobin currently stable -EGD was done 10/11 with banding x3 of esophageal varices - will continue check H&H and transfuse as needed (4) GI (gastrointestinal hemorrhage): Qualifiers: GI bleed type/associated pathology: unspecified gastrointestinal hemorrhage type Qualified Code(s): K92.2 - Gastrointestinal hemorrhage, unspecified Code(s): K92.2 - Gastrointestinal hemorrhage, unspecified Status: Acute Assessment and Plan: EGD 10/11 which showed grade 2 esophageal varices status post 3 bands. There was moderate gastritis and moderate portal hypotensive changes in the stomach. No ulcers were seen in the proximal stomach. There is also a small gastric varix. The bulb and the 2nd portion of the duodenum a normal no ulcers or masses -GI following the patient -continue octreotide as per GI -change PPI to IV push (5) Acute renal failure: Qualifiers: Acute renal failure type: unspecified Qualified Code(s): N17.9 - Acute kidney failure, unspecified Code(s): N17.9 - Acute kidney failure, unspecified Status: Acute Assessment and Plan: Acute kidney injury: Likely related to severe anemia, hemorrhagic shock, hypovolemia, ATN, hepatorenal syndrome -patient to adequately fluid-resuscitated -continue maintenance IV fluids -currently on Levophed will maintain mean arterial pressures greater than 65 mmHg for adequate renal perfusion -creatinine has worsened, nephrology following the patient -monitor renal function, electrolytes and urine output -appreciate nephrology following the patient -she could have hepatorenal syndrome -10/10/2021: Renal ultrasound shows medical renal disease, no hydronephrosis (6) Acute blood loss anemia: Code(s): D62 - Acute posthemorrhagic anemia Status: Acute Assessment and Plan: Anemia likely related to hematemesis in GI bleed -patient did receive massive blood transfusions and blood products -continue to monitor H&H and transfuse as needed (7) Cirrhosis of liver with ascites: Qualifiers: Hepatic cirrhosis type: alcoholic cirrhosis Qualified Code(s): K70.31 - Alcoholic cirrhosis of liver with ascites Code(s): K74.60 - Unspecified cirrhosis of liver; R18.8 - Other ascites Status: Acute Assessment and Plan: Abdominal distension with moderate volume ascites on CT scan of the abdomen pelvis done on admission on 10/08/2021 -appreciate Interventional Radiology performing ultrasound-guided paracentesis on 10/09/2021 with removal of 1800 mL of yellow fluid -patient was given albumin post paracentesis -I think she will need additional paracentesis and
--- NOTE | 2021-10-12 11:41 | PCFNICU ---
ICU Rounding Note: Pt current nutrition is Vital AF 1.2 at 20 ml/hr over 22 hours. Nutrition recommendation: goal rate at 50 ml/hr. Last recorded weight is 42.5 kg, down from 48 kg on admit. Bowel Motility:+BM reported 10/12 Labs Reviewed:Glu 130, Cr 2.7,GFR 19,K 3.1,Na 3.1, Alb 2.8,Hgb 10.1,Hct 29.4 Meds Noted:Lactulose, Thiamine,Folic Acid, Propofol 15 uoki=330 kcals,Potassium Chloride. Skin: WNL Additional Notes: Patient remains on mechanical vent. Tube feedings have started of Vital AF 1.2 at 20 ml/hr. Spoke with nursing today-Family discussions for possible comfort care. Agree with diet orders. Following daily in ICU rounds and reassessing every Saturday and Saturday.
[2021-10-12] MEDS: PHYTONADIONE 5 MG TABLET 10 MG FEED TUBE (12:28)
--- NOTE | 2021-10-12 13:36 | PC.NURSE ---
Patient's spouse refuses paracentesis at this time. States wants patient to be comfortable. Would like to discuss DNR with Dr. Matute again. Dr. Matute notified.
--- NOTE | 2021-10-12 14:01 | PM.EVENT ---
Event Note Event Note Event Note: Spoke to patient's Nate again by phone and he told me that he has discussed with patient's other family members and would like to make patient DNR at this time. A he wants to continue treatment at this time understands that her prognosis is poor. I have changed patient's code status to DNR as per patient's 's request.
--- NOTE | 2021-10-12 14:24 | PM.PNNEP ---
Progress Note: A&P Assessment and Plan (1) Acute renal failure: Qualifiers: Acute renal failure type: unspecified Qualified Code(s): N17.9 - Acute kidney failure, unspecified Code(s): N17.9 - Acute kidney failure, unspecified Status: Acute Assessment and Plan: The patient has acute kidney injury. Normally she has normal serum creatinine of 0.5. Renal ultrasound shows echogenic kidneys but size is normal urine electrolytes are pre renal total CK is normal creatinine is improved some. Hemodynamics are better. Urine output is improved. I suspect this is ATN secondary to severe anemia, hypotension, dehydration. Hepatorenal syndrome is a possibility. She is on norepinephrine and octreotide. She has low sodium. This is likely due to the renal failure plus mostly hypotonic fluids. will try to changes many drips as we can to normal saline change tube feeding flushes to normal saline If this gets much worse we can use 3% saline to get it back up (2) Hemorrhagic shock: Code(s): R57.8 - Other shock Status: Acute Assessment and Plan: She has GI bleeding from the varices. She has received FFP to improve clotting and PRBCs to improve the hemoglobin. (3) Cirrhosis of liver with ascites: Qualifiers: Hepatic cirrhosis type: alcoholic cirrhosis Qualified Code(s): K70.31 - Alcoholic cirrhosis of liver with ascites Code(s): K74.60 - Unspecified cirrhosis of liver; R18.8 - Other ascites Status: Acute Assessment and Plan: She has longstanding alcohol abuse resulting in Laennec's cirrhosis. (4) Alcoholism: Code(s): F10.20 - Alcohol dependence, uncomplicated Status: Acute (5) Tobacco dependence: Code(s): F17.200 - Nicotine dependence, unspecified, uncomplicated Status: Acute Assessment and Plan: She continues to smoke cigarettes. Subjective Date/time seen: 10/12/21 14:24 Interval history: Dena is unable to give any history. Intubated and in the ICU. Still on pressors. Exam Narrative: WDWN Female looking critically ill poorly nourished in the ICU on the ventilator skin no rash or subcu nodules head ncat lungs coarse upper airway noise cor reg no rub or gallop abd BS+ nontender and soft ext no edema. Objective Data Vital Signs Vital Signs: Vital Signs - 24 hr 10/11/21 16:00 10/11/21 17:13 10/11/21 17:23 Temperature 36.6 C 36.8 C Pulse Rate 81 85 79 Respiratory Rate 26 H 28 H Blood Pressure 94/71 L 101/83 101/83 Pulse Oximetry 98 99 10/11/21 17:30 10/11/21 17:33 10/11/21 18:00 Temperature 36.7 C Pulse Rate 85 84 85 Respiratory Rate 26 H 20 28 H Blood Pressure 99/74 L 109/77 Pulse Oximetry 99 98 10/11/21 18:07 10/11/21 18:30 10/11/21 20:00 Temperature 36.9 C 36.8 C Pulse Rate 83 84 86 Respiratory Rate 25 H 28 H Blood Pressure 104/78 99/80 L Pulse Oximetry 100 99 96 10/11/21 20:49 10/11/21 21:50 10/11/21 22:00 Temperature Pulse Rate 76 88 82 Respiratory Rate 21 H 18 25 H Blood Pressure 104/83 Pulse Oximetry 97 98 10/11/21 23:00 10/12/21 00:00 10/12/21 02:00 Temperature 36.8 C Pulse Rate 88 85 79 Respiratory Rate 26 H 22 H Blood Pressure 103/69 100/71 Pulse Oximetry 97 94 99 10/12/21 02:12 10/12/21 02:22 10/12/21 04:00 Temperature 36.8 C Pulse Rate 74 74 73 Respiratory Rate 21 H 21 H 18 Blood Pressure 96/68 L Pulse Oximetry 97 97 10/12/21 05:50 10/12/21 06:00 10/12/21 08:00 Temperature 37.1 C Pulse Rate 72 70 81 Respiratory Rate 18 21 H Blood Pressure 110/79 112/80 Pulse Oximetry 97 98 98 10/12/21 08:12 10/12/21 09:17 10/12/21 09:43 Temperature Pulse Rate 82 74 89 Respiratory Rate 19 Blood Pressure 107/74 Pulse Oximetry 97 10/12/21 10:00 10/12/21 11:00 10/12/21 12:00 Temperature 36.6 C Pulse Rate 76 71 Respiratory Rate 18 18 Blood Pressure 82/
--- NOTE | 2021-10-12 16:40 | WPDGIPROGNO ---
Progress Note: A&P Assessment and Plan (1) GI (gastrointestinal hemorrhage): Qualifiers: GI bleed type/associated pathology: unspecified gastrointestinal hemorrhage type Qualified Code(s): K92.2 - Gastrointestinal hemorrhage, unspecified Code(s): K92.2 - Gastrointestinal hemorrhage, unspecified Status: Acute Assessment and Plan: treated with egd, required EV banding, also noted small GV ok to discontinue octreotide and switch to bid protonix not candidate for TIPS because high MELD score poor prognosis, now she is DNR per wishes (2) Esophageal varices in alcoholic cirrhosis: Code(s): K70.30 - Alcoholic cirrhosis of liver without ascites; I85.10 - Secondary esophageal varices without bleeding Status: Acute Assessment and Plan: s/p banding medical support (3) Acute respiratory failure: Code(s): J96.00 - Acute respiratory failure, unspecified whether with hypoxia or hypercapnia Status: Acute Assessment and Plan: intubated, by ICU will order another paracentesis tomorrow to see if will help with her respiratory status (abdomen still distended) (4) Liver encephalopathy: Code(s): K72.90 - Hepatic failure, unspecified without coma Status: Acute Assessment and Plan: on lactulose and xifaxan (5) Acute renal failure: Qualifiers: Acute renal failure type: unspecified Qualified Code(s): N17.9 - Acute kidney failure, unspecified Code(s): N17.9 - Acute kidney failure, unspecified Status: Acute Assessment and Plan: treated also with levophed, nephrology on board (6) Hemorrhagic shock: Code(s): R57.8 - Other shock Status: Acute Assessment and Plan: on levophed (7) Acute blood loss anemia: Code(s): D62 - Acute posthemorrhagic anemia Status: Acute Assessment and Plan: continue to monitor she is post PRBC and vitamin k, FFP (8) Hypokalemia: Code(s): E87.6 - Hypokalemia Status: Acute (9) Acute liver failure: Code(s): K72.00 - Acute and subacute hepatic failure without coma Status: Acute Assessment and Plan: trend lft's high MELD score and poor prognosis supportive care in icu Subjective Date/time seen: 10/12/21 16:40 Interval history: still intubated, no major changes Review of Systems Review of Systems: All systems reviewed & are unremarkable except as noted in HPI and below Exam Const: Other: ill, jaundice, cachectic- intubated HENMT: General nose exam: Normal nares present Other: ETT in place Eyes: Other: icteric sclerae Neck: Neck: supple Resp: Auscultation: rhonchi Cardio: Rate: regular rate GI: Inspection: distended GI Palp: Yes Soft to palpation and No Tenderness to palpation present (GI) Percussion: Yes Fluid wave present (better after paracentesis) Auscultation: normal bowel sounds Urinary Catheter: Urinary Catheter: patent and draining Skin: Other: jaundice Neuro: Other: asterixis + Extrem: General: normal to inspection Psych: Other: unable to assess Objective Data Vital Signs Vital Signs: Vital Signs - 24 hr 10/11/21 17:13 10/11/21 17:23 10/11/21 17:30 Temperature 98.2 F 98.0 F Pulse Rate 85 79 85 Respiratory Rate 28 H 26 H Blood Pressure 101/83 101/83 99/74 L Pulse Oximetry 99 99 10/11/21 17:33 10/11/21 18:00 10/11/21 18:07 Temperature Pulse Rate 84 85 83 Respiratory Rate 20 28 H Blood Pressure 109/77 Pulse Oximetry 98 100 10/11/21 18:30 10/11/21 20:00 10/11/21 20:49 Temperature 98.4 F 98.2 F Pulse Rate 84 86 76 Respiratory Rate 25 H 28 H 21 H Blood Pressure 104/78 99/80 L Pulse Oximetry 99 96 10/11/21 21:50 10/11/21 22:00 10/11/21 23:00 Temperature Pulse Rate 88 82 88 Respiratory Rate 18 25 H Blood Pressure 104/83 Pulse Oximetry 97 98 97 10/12/21 00:00 10/12/21 02:00 10/12/21 02:12 Temperature 98.2 F Pulse Rate 85 79 74 R
[2021-10-12] MEDS: PANTOPRAZOLE SODIUM IV 40 MG VIAL IV PUSH (19:50)
[2021-10-13] VITALS (22 sets, daily range): BP systolic 93–114; BP diastolic 61–85; PULSE 67–85; RESP 13–20; TEMP 36.2–36.6; O2SAT 94–100
[2021-10-13 05:03] LABS: INR 3.1; Partial Thromboplastin Time 54.4 SECONDS (22.3-36.8)
[2021-10-13 05:13] LABS: Basophils Absolute Auto 0.1 K/mm3 (0.0-0.1); Basophils Percent Auto 0.3 % (0.2-1.2); Eosinophils Absolute Auto 0.2 K/mm3 (0-0.3); Eosinophils Percent Auto 1.1 % (0-4.4); Hematocrit 30.9 % (37.0-47.0); Hemoglobin 10.6 g/dL (12.0-15.0); Immature Granulocyte Absolute 0.36 K/mm3 (0.00-0.031); Immature Granulocyte Percent A 2.1 % (0-0.5); Immature Platelet Fraction Pct 5.6 % (0.9-11.2); Lymphocytes Absolute Auto 1.48 K/mm3 (0.9-3.2); Lymphocytes Percent Auto 8.4 % (18.3-44.2); Mean Corpuscular HGB Conc 34.3 g/dl (32-36); Mean Corpuscular Hemoglobin 30.1 pg (26-34); Mean Corpuscular Volume 87.8 fl (80-100); Mean Platelet Volume 9.9 fl (7.4-10.4); Monocytes Absolute Auto 2.2 K/mm3 (0.1-0.6); Monocytes Percent Auto 12.6 % (2.6-8.5); Neutrophils Absolute Auto 13.3 K/mm3 (1.3-6.7); Neutrophils Percent Auto 75.5 % (45.5-73.1); Platelet Count Result 81 k/mm3 (150-375); Red Blood Count 3.52 M/mm3 (4.2-5.4); Red Cell Distribution Width 22.2 % (11.5-14.5); White Blood Count 17.6 K/mm3 (4.5-10.0)
[2021-10-13 05:21] LABS: Alanine Aminotransferase 18 U/L (4-35); Albumin Level 2.9 g/dL (3.5-5.1); Alkaline Phosphatase 117 U/L (38-126); Anion Gap 11 mmol/L (8-16); Aspartate Amino Transferase 75 U/L (14-36); Bilirubin,Total 31.3 mg/dL (0.2-1.3); Blood Urea Nitrogen 17 mg/dL (7-17); Calcium 8.6 mg/dL (8.4-10.2); Carbon Dioxide 23 mmol/L (22-30); Chloride 95 mmol/L (98-107); Estimated CRCL calculation 18 ml/min; Estimated Glomerular Filt Rate 21; Glucose 96 mg/dL (65-110); Magnesium 2.2 mg/dL (1.6-2.3); Phosphorus 4.4 mg/dL (2.5-4.5); Potassium 4.1 mmol/L (3.4-5.0); Sodium 129 mmol/L (137-145)
[2021-10-13 05:39] LABS: Base Excess ABG -0.7 mEq/l (+/-2.0); Carboxyhemoglobin 0.6 % THb (0-2.0); Fractional Inspired Oxygen 35 %; HCO3 ABG 21.2 mEq/l (22.0-26.0); Methemoglobin ABG 0.3 %THb (0-1.5); Oxygen Content ABG 15.8 %vol (16.0-22.0); Oxygen Saturation ABG 98.6 % (95.0-100.0); Oxyhemoglobin 97.3 % THb (90.0-100.0); PCO2 ABG 27.1 mmHg (35.0-45.0); PO2 FiO2 Ratio Arterial Blood 3.31 %; Reduced Hemoglobin 1.8 %THb (0-5.0); Total Hemoglobin 11.4 g/dL (12.0-18.0)
[2021-10-13 05:43] LABS: pH ABG 7.512 (7.350-7.450)
[2021-10-13 05:44] LABS: Device VENTILATOR; Modified Allen's Test Pass; Site Drawn RIGHT RADIAL
[2021-10-13 05:44] LABS: Platelet Estimate Decreased (Adequate)
[2021-10-13 05:45] LABS: Arterial Blood Gas PEEP 5 cmH2O; Arterial Blood Gas Vent Mode CMV; Arterial Blood Gas Ventilator rate 18 /MIN
[2021-10-13 05:45] LABS: Poikilocytosis 1+ (NORMAL)
[2021-10-13 05:46] LABS: Arterial Blood Gas Tidal Volume 300 ml
[2021-10-13] MEDS: PANTOPRAZOLE SODIUM IV 40 MG VIAL IV PUSH ×2 (10:52→20:41)
[2021-10-13] MEDS: MINERAL OIL/WHITE PETROLATUM OINTMENT 1 APPLIC EACH EYE ×2 (10:52→20:42)
[2021-10-13] MEDS: rifAXIMin 550 MG TABLET PO ×2 (10:52→20:41)
[2021-10-13] MEDS: METOCLOPRAMIDE HCL 10 MG/10 ML SOLN UDC FEED TUBE ×3 (10:52→20:41)
[2021-10-13] MEDS: FOLIC ACID 1 MG/0.2 ML INJ IV PUSH (10:52)
[2021-10-13] MEDS: THIAMINE HCL 200 MG/2 ML VIAL 100 MG IV PUSH (10:52)
--- NOTE | 2021-10-13 12:16 | PM.PNNEP ---
Progress Note: A&P Assessment and Plan (1) Acute renal failure: Qualifiers: Acute renal failure type: unspecified Qualified Code(s): N17.9 - Acute kidney failure, unspecified Code(s): N17.9 - Acute kidney failure, unspecified Status: Acute Assessment and Plan: The patient has acute kidney injury. Normally she has normal serum creatinine of 0.5. Renal ultrasound shows echogenic kidneys but size is normal urine electrolytes are pre renal total CK is normal creatinine is improved some from 2.7-2.5. Hemodynamics are better. Urine output is improved. I suspect this is ATN secondary to severe anemia, hypotension, dehydration. Renal syndrome since she is improving. She is on norepinephrine She has low sodium. This is improved with changing fluids to saline. (2) Hemorrhagic shock: Code(s): R57.8 - Other shock Status: Acute Assessment and Plan: She had GI bleeding from the varices. Hemoglobin is stable (3) Cirrhosis of liver with ascites: Qualifiers: Hepatic cirrhosis type: alcoholic cirrhosis Qualified Code(s): K70.31 - Alcoholic cirrhosis of liver with ascites Code(s): K74.60 - Unspecified cirrhosis of liver; R18.8 - Other ascites Status: Acute Assessment and Plan: She has longstanding alcohol abuse resulting in Laennec's cirrhosis. (4) Alcoholism: Code(s): F10.20 - Alcohol dependence, uncomplicated Status: Acute (5) Tobacco dependence: Code(s): F17.200 - Nicotine dependence, unspecified, uncomplicated Status: Acute Assessment and Plan: She continues to smoke cigarettes. Subjective Date/time seen: 10/13/21 12:16 Interval history: Dena is unable to give any history. Intubated and in the ICU. Blood pressure seems a little bit better. Exam Narrative: WDWN Female looking critically ill poorly nourished in the ICU on the ventilator skin no rash or subcu nodules jaundiced. head ncat lungs coarse cor reg no rub or gallop abd BS+ nontender and soft ext no edema and no cyanosis. Objective Data Vital Signs Vital Signs: Vital Signs - 24 hr 10/12/21 12:25 10/12/21 14:00 10/12/21 15:25 Temperature Pulse Rate 79 68 69 Respiratory Rate 19 Blood Pressure 95/54 L Pulse Oximetry 98 97 97 10/12/21 16:00 10/12/21 17:24 10/12/21 18:00 Temperature 36.6 C Pulse Rate 76 83 71 Respiratory Rate 19 18 Blood Pressure 108/70 96/71 L Pulse Oximetry 98 98 96 10/12/21 20:00 10/12/21 20:30 10/12/21 22:00 Temperature 36.4 C Pulse Rate 75 76 77 Respiratory Rate 18 18 Blood Pressure 92/16 L 80/52 L 103/78 Pulse Oximetry 97 96 10/12/21 22:02 10/13/21 00:00 10/13/21 00:38 Temperature 36.4 C Pulse Rate 77 72 78 Respiratory Rate 18 Blood Pressure 96/66 L Pulse Oximetry 97 94 98 10/13/21 02:00 10/13/21 04:00 10/13/21 05:17 Temperature 36.4 C Pulse Rate 71 73 76 Respiratory Rate 20 20 Blood Pressure 96/62 L 106/78 Pulse Oximetry 97 98 98 10/13/21 06:00 10/13/21 07:00 10/13/21 09:31 Temperature Pulse Rate 69 74 70 Respiratory Rate 18 Blood Pressure 101/70 93/62 L Pulse Oximetry 98 99 10/13/21 10:59 Temperature Pulse Rate 67 Respiratory Rate Blood Pressure 107/73 Pulse Oximetry Intake/Output Intake/Output: Intake & Output 10/10/21 10/11/21 10/12/21 10/13/21 23:59 23:59 23:59 23:59 Intake Total 2427 2000 960 514 Output Total 350 1600 1725 2820 Balance 6902 225 -183 -9216 Meds/Results Medications: Active Medications Generic Name Dose Route Start Last Admin Trade Name Cindi PRN Reason Stop Dose Admin Folic Acid 1 mg 10/10/21 09:00 10/13/21 10:52 Folic Acid 1 Mg/0.2 Ml Inj IV PUSH 1 mg QAM NIKA Administration Norepinephrine Bitartrate 8 mg 8 mg in 250 mls @ 22.5 mls/hr 10/12/21 14:55 10/13/21 10:59 / Sodium Chloride IV CONT 12 mcg/min .[id number] NIKA 22.5 m
--- NOTE | 2021-10-13 12:59 | WPDINTPN ---
Progress Note: A&P Assessment and Plan (1) Hepatic encephalopathy: Code(s): K72.90 - Hepatic failure, unspecified without coma Status: Acute Assessment and Plan: Patient with encephalopathy/altered mental status, which could be related to hepatic and metabolic encephalopathy -patient was intubated for airway protection -ammonia levels 88 which has improved to 47 - continue lactulose and rifaximin -continue to hold sedatives (2) Acute respiratory failure: Code(s): J96.00 - Acute respiratory failure, unspecified whether with hypoxia or hypercapnia Status: Acute Assessment and Plan: Patient obtunded, requiring 15 L non-rebreather mask to maintain sats greater than 90%. -impending respiratory failure, patient was successfully intubated on 10/10/2021 -continue bronchodilators -ABG reviewed continue peep of 5 and 50% FiO2. Respiratory rate decreased on the ventilator -chest x-ray reviewed atelectasis improved. -patient may have aspirated hence I have changed the antibiotics to Zosyn which will be continued (3) Hemorrhagic shock: Code(s): R57.8 - Other shock Status: Acute Assessment and Plan: Hemorrhagic shock likely related to variceal bleeding/GI bleed. -patient received masses hemorrhage transfusion with 6 units of PRBC, 4 units of FFP, 1 unit of cryo, 1 unit of platelet, vitamin K -hemoglobin currently stable -EGD was done 10/11 with banding x3 of esophageal varices - will continue check H&H which has been stable and transfuse as needed (4) GI (gastrointestinal hemorrhage): Qualifiers: GI bleed type/associated pathology: unspecified gastrointestinal hemorrhage type Qualified Code(s): K92.2 - Gastrointestinal hemorrhage, unspecified Code(s): K92.2 - Gastrointestinal hemorrhage, unspecified Status: Acute Assessment and Plan: EGD 10/11 which showed grade 2 esophageal varices status post 3 bands. There was moderate gastritis and moderate portal hypotensive changes in the stomach. No ulcers were seen in the proximal stomach. There is also a small gastric varix. The bulb and the 2nd portion of the duodenum a normal no ulcers or masses -GI following the patient Off octreotide and PPI change to IV q.12 hours push Tube feeds started (5) Acute renal failure: Qualifiers: Acute renal failure type: unspecified Qualified Code(s): N17.9 - Acute kidney failure, unspecified Code(s): N17.9 - Acute kidney failure, unspecified Status: Acute Assessment and Plan: Acute kidney injury: Likely related to severe anemia, hemorrhagic shock, hypovolemia, ATN, hepatorenal syndrome -patient to adequately fluid-resuscitated -continue maintenance IV fluids -currently on Levophed will maintain mean arterial pressures greater than 65 mmHg for adequate renal perfusion -creatinine has marginally improved, nephrology following the patient -monitor renal function, electrolytes and urine output -appreciate nephrology following the patient -she could have hepatorenal syndrome -10/10/2021: Renal ultrasound shows medical renal disease, no hydronephrosis (6) Acute blood loss anemia: Code(s): D62 - Acute posthemorrhagic anemia Status: Acute Assessment and Plan: Anemia likely related to hematemesis in GI bleed -patient did receive massive blood transfusions and blood products -continue to monitor H&H which has been stable and transfuse as needed (7) Cirrhosis of liver with ascites: Qualifiers: Hepatic cirrhosis type: alcoholic cirrhosis Qualified Code(s): K70.31 - Alcoholic cirrhosis of liver with ascites Code(s): K74.60 - Unspecified cirrhosis of liver; R18.8 - Other ascites Status: Acute Assessment and Plan: Abdominal distension with moderate volume ascites on CT scan of the abdomen pelvis done on admission on 10/08/2021 -appreciate Interventional Radiology performing ultrasound-guided paracentesis on
--- NOTE | 2021-10-13 13:41 | PCNFU ---
Nutrition Follow-Up Complete: Inadequate Oral Intake as related to mechanical ventilation as evidenced by NPO. Goal: Meet estimated nutritional needs Limited progress towards goal. We will continue current goal. Pt current nutrition is Vital AF 1.2 at 20 ml/hr over 22 hours. Last recorded weight is 42.5 kg, down from 48 kg on admit. Bowel Motility:+BM reported 10/13 Labs Reviewed:Cr 2.5,Na 129, GFR 21, Hct 30.9,Hgb 10.6 Meds Noted:Lactulose, Protonix, Rocephin, Levophed, Folic Acid, Thiamine, Reglan. Skin: WNL Additional Notes: Patient remains on mechanical vent. Tube feeding currently on hold due to undigested medications noted by nursing. Plans for Reglan today. Paracentesis has been ordered today, 2,100 ml removed. DNR status. Tube feeding recommendations: Vital AF 1.2 goal rat at 50 ml/hr providing 1396 kcals/83 gms protein/892 ml water. Free water flush 30 ml q 4 hours. Agree with diet orders. will monitor in ICU rounds and reassessing every Saturday and Saturday.
[2021-10-13 15:16] LABS: Alveolar/Arterial O2 Gradient 103.9 mmHg; Base Excess ABG -0.4 mEq/l (+/-2.0); Fractional Inspired Oxygen 35 %; Oxygen Content ABG 15.4 %vol (16.0-22.0); Oxygen Saturation ABG 97.7 % (95.0-100.0); Oxyhemoglobin 96.8 % THb (90.0-100.0); PCO2 ABG 38.4 mmHg (35.0-45.0); PO2 FiO2 Ratio Arterial Blood 2.89 %; Total Hemoglobin 11.2 g/dL (12.0-18.0); pH ABG 7.413 (7.350-7.450)
[2021-10-13 15:17] LABS: Device VENTILATOR; Site Drawn LEFT BRACHIAL
[2021-10-13 15:18] LABS: Arterial Blood Gas PEEP 5 cmH2O; Arterial Blood Gas Pressure Support 5 cmH2O; Arterial Blood Gas Vent Mode SPONTANEOUS
--- NOTE | 2021-10-13 15:30 | PM.EVENT ---
Event Note Event Note Event Note: 5/5 PSV SBT done for more than 30 minutes. RSBI, ABGI and Vitals acceptable. Pt confused but awake and following commands. Will place NG and extubate and monitor. NPO for now except meds.
[2021-10-13] MEDS: LACTULOSE 20 GM/30 ML UDC PO ×2 (15:38→20:41)
[2021-10-13] MEDS: prednisoLONE ORAL SOLN 30 MG/10 ML SOLUTION 40 MG FEED TUBE (15:40)
--- NOTE | 2021-10-13 16:58 | WPDGIPROGNO ---
Progress Note: A&P Assessment and Plan (1) GI (gastrointestinal hemorrhage): Qualifiers: GI bleed type/associated pathology: unspecified gastrointestinal hemorrhage type Qualified Code(s): K92.2 - Gastrointestinal hemorrhage, unspecified Code(s): K92.2 - Gastrointestinal hemorrhage, unspecified Status: Acute Assessment and Plan: treated with egd, required EV banding, also noted small GV s/p iv octreotide (discontinued) now bid protonix not candidate for TIPS because high MELD score poor prognosis, now she is DNR per wishes (2) Esophageal varices in alcoholic cirrhosis: Code(s): K70.30 - Alcoholic cirrhosis of liver without ascites; I85.10 - Secondary esophageal varices without bleeding Status: Acute Assessment and Plan: s/p banding medical support (3) Acute alcoholic hepatitis: Code(s): K70.10 - Alcoholic hepatitis without ascites Status: Acute Assessment and Plan: ok to start nutrition, agree with prednisolone still with high MELD score and Discriminant function poor prognosis (4) Acute respiratory failure: Code(s): J96.00 - Acute respiratory failure, unspecified whether with hypoxia or hypercapnia Status: Acute Assessment and Plan: intubated, by ICU (5) Liver encephalopathy: Code(s): K72.90 - Hepatic failure, unspecified without coma Status: Acute Assessment and Plan: on lactulose and xifaxan (6) Acute renal failure: Qualifiers: Acute renal failure type: unspecified Qualified Code(s): N17.9 - Acute kidney failure, unspecified Code(s): N17.9 - Acute kidney failure, unspecified Status: Acute Assessment and Plan: treated also with levophed, nephrology on board (7) Hemorrhagic shock: Code(s): R57.8 - Other shock Status: Acute Assessment and Plan: still on levophed (8) Acute blood loss anemia: Code(s): D62 - Acute posthemorrhagic anemia Status: Acute Assessment and Plan: continue to monitor she is post PRBC and vitamin k, FFP hb stable at 10, no more signs of bleeding (9) Hypokalemia: Code(s): E87.6 - Hypokalemia Status: Acute (10) Acute liver failure: Code(s): K72.00 - Acute and subacute hepatic failure without coma Status: Acute Subjective Date/time seen: 10/13/21 13:00 Interval history: s/p paracentesis, she is intubated but spontaneous movement, no more report of gib Review of Systems Review of Systems: All systems reviewed & are unremarkable except as noted in HPI and below Exam Const: Other: ill, jaundice, cachectic- intubated HENMT: General nose exam: Normal nares present Other: ETT in place Eyes: Other: icteric sclerae Neck: Neck: supple Resp: Auscultation: rhonchi Cardio: Rate: regular rate GI: Inspection: distended GI Palp: Yes Soft to palpation and No Tenderness to palpation present (GI) Percussion: Yes Fluid wave present (better after paracentesis) Auscultation: normal bowel sounds Urinary Catheter: Urinary Catheter: patent and draining Skin: Other: jaundice Neuro: Other: spontaneous movement Extrem: General: normal to inspection Psych: Other: unable to assess Objective Data Vital Signs Vital Signs: Vital Signs - 24 hr 10/12/21 17:24 10/12/21 18:00 10/12/21 20:00 Temperature 97.6 F Pulse Rate 83 71 75 Respiratory Rate 18 18 Blood Pressure 96/71 L 92/16 L Pulse Oximetry 98 96 97 10/12/21 20:30 10/12/21 22:00 10/12/21 22:02 Temperature Pulse Rate 76 77 77 Respiratory Rate 18 Blood Pressure 80/52 L 103/78 Pulse Oximetry 96 97 10/13/21 00:00 10/13/21 00:38 10/13/21 02:00 Temperature 97.6 F Pulse Rate 72 78 71 Respiratory Rate 18 20 Blood Pressure 96/66 L 96/62 L Pulse Oximetry 94 98 97 10/13/21 04:00 10/13/21 05:17 10/13/21 06:00 Temperature 97.6 F Pulse Rate 73 76 69 Respiratory Rate 20 18 Blood Pressure 10
[2021-10-14] VITALS (17 sets, daily range): BP systolic 78–126; BP diastolic 48–85; PULSE 60–72; RESP 12–18; TEMP 35.7–36.6; O2SAT 78–98
[2021-10-14] MEDS: LACTULOSE 20 GM/30 ML UDC PO (05:21)
[2021-10-14 05:54] LABS: Basophils Absolute Auto 0.1 K/mm3 (0.0-0.1); Basophils Percent Auto 0.7 % (0.2-1.2); Eosinophils Percent Auto 0.2 % (0-4.4); Hematocrit 32.6 % (37.0-47.0); Hemoglobin 11.1 g/dL (12.0-15.0); Immature Granulocyte Absolute 0.43 K/mm3 (0.00-0.031); Immature Granulocyte Percent A 2.8 % (0-0.5); Lymphocytes Absolute Auto 1.23 K/mm3 (0.9-3.2); Mean Corpuscular Hemoglobin 30.9 pg (26-34); Mean Corpuscular Volume 90.8 fl (80-100); Mean Platelet Volume 10.2 fl (7.4-10.4); Monocytes Absolute Auto 1.3 K/mm3 (0.1-0.6); Monocytes Percent Auto 8.5 % (2.6-8.5); Neutrophils Absolute Auto 12.3 K/mm3 (1.3-6.7); Neutrophils Percent Auto 79.8 % (45.5-73.1); Platelet Count Result 80 k/mm3 (150-375); Red Blood Count 3.59 M/mm3 (4.2-5.4); Red Cell Distribution Width 22.9 % (11.5-14.5); White Blood Count 15.5 K/mm3 (4.5-10.0)
[2021-10-14 06:10] LABS: Alanine Aminotransferase 20 U/L (4-35); Albumin Level 2.9 g/dL (3.5-5.1); Alkaline Phosphatase 107 U/L (38-126); Ammonia 40 umol/L (9-30); Anion Gap 12 mmol/L (8-16); Aspartate Amino Transferase 89 U/L (14-36); Blood Urea Nitrogen 19 mg/dL (7-17); Calcium 9.1 mg/dL (8.4-10.2); Carbon Dioxide 22 mmol/L (22-30); Chloride 101 mmol/L (98-107); Estimated CRCL calculation 18 ml/min; Estimated Glomerular Filt Rate 22; Glucose 131 mg/dL (65-110); Magnesium 2.1 mg/dL (1.6-2.3); Phosphorus 6.2 mg/dL (2.5-4.5); Potassium 4.4 mmol/L (3.4-5.0); Sodium 135 mmol/L (137-145)
[2021-10-14 06:11] LABS: Bilirubin,Total 32.1 mg/dL (0.2-1.3)
[2021-10-14 06:19] LABS: INR 3.3; Prothrombin Time 32.8 Seconds (11.1-14.7)
[2021-10-14 06:20] LABS: Partial Thromboplastin Time 59.2 SECONDS (22.3-36.8)
[2021-10-14] MEDS: rifAXIMin 550 MG TABLET PO (09:15)
[2021-10-14] MEDS: THIAMINE HCL 200 MG/2 ML VIAL 100 MG IV PUSH (09:16)
[2021-10-14] MEDS: PANTOPRAZOLE SODIUM IV 40 MG VIAL IV PUSH (09:16)
[2021-10-14] MEDS: METOCLOPRAMIDE HCL 10 MG/10 ML SOLN UDC FEED TUBE (09:19)
--- NOTE | 2021-10-14 09:30 | PM.PNNEP ---
Progress Note: A&P Assessment and Plan (1) Acute renal failure: Qualifiers: Acute renal failure type: unspecified Qualified Code(s): N17.9 - Acute kidney failure, unspecified Code(s): N17.9 - Acute kidney failure, unspecified Status: Acute Assessment and Plan: normal baseline creatinine due to ATN from: hypotension/hemodynamic instability/shock pre-renal factors severe anemia evaluation to date: renal ultrasound with echogenic kidneys but normal size urine electrolytes prerenal (but could just be reflective liver physiology) CPK normal creatinine a bit better with better hemodynamics urine steadily improving follow trend of repeat labs and UOP (2) Hemorrhagic shock: Code(s): R57.8 - Other shock Status: Acute Assessment and Plan: secondary to variceal bleeding/GI bleed transfused with multiple blood products (PRBS, FFP, cyro, platelets...etc) s/p EGD (on 10/11/21) with banding of esophagela varices x 3 H/H relatively stable now but follow trend GI following wean levophed as tolerated (3) Cirrhosis of liver with ascites: Qualifiers: Hepatic cirrhosis type: alcoholic cirrhosis Qualified Code(s): K70.31 - Alcoholic cirrhosis of liver with ascites Code(s): K74.60 - Unspecified cirrhosis of liver; R18.8 - Other ascites Status: Chronic Assessment and Plan: long standing issue/problems s/p ultrasound-guided paracentesis [on 10/09/21 (1.8L) and 10/13/21 (2.1L)] bilirubin remains quite elevated (4) Acute respiratory failure: Qualifiers: Respiratory failure complication: hypoxia Qualified Code(s): J96.01 - Acute respiratory failure with hypoxia Code(s): J96.00 - Acute respiratory failure, unspecified whether with hypoxia or hypercapnia Status: Acute Assessment and Plan: resolved initially intubated due to worsening encephalopathy and inability to protect airway extubated yesterday afternoon (10/13/21) per , DNR/DNI at this time (5) Liver encephalopathy: Code(s): K72.90 - Hepatic failure, unspecified without coma Status: Acute Assessment and Plan: questionable improvement on lactulose and xifaxan (6) Acute alcoholic hepatitis: Code(s): K70.10 - Alcoholic hepatitis without ascites Status: Acute Assessment and Plan: on prednisolone 40 mg per day although questionable benefit still with high MELD score poor prognosis Will continue to follow. Subjective Date/time seen: 10/14/21 09:30 Chart reviewed - assuming care from Dr. Mays; extubated yesterday afternoon and currently on 8L high flow nasal cannula; she still appears drowsy and confused during my visit; still remains on pressor support to maintain MAP. Exam Narrative: General: ill appearing female on high flow nasal cannula Heart: normal S1 and S2; no rub Lungs: coarse breath sounds Abdomen: soft, nontender, nondistended, positive bowel sounds Extremities: no cyanosis or clubbing; no edema Skin: warm and dry; jaundiced Objective Data Vital Signs Vital Signs: Vital Signs Temp Pulse Resp BP Pulse Ox 10/14/21 08:00 67 14 90/65 L 96 10/14/21 07:30 61 111/70 10/14/21 07:00 67 106/67 10/14/21 06:42 68 106/85 10/14/21 06:00 62 12 111/75 97 10/14/21 05:22 72 98/73 L 10/14/21 04:00 35.8 C L 70 17 98/73 L 96 10/14/21 02:00 71 15 126/79 94 10/14/21 00:00 36.6 C 71 16 112/74 97 10/13/21 21:42 71 15 100/73 98 10/13/21 21:10 74 110/76 10/13/21 20:00 36.6 C 73 15 100/73 98 10/13/21 18:14 72 99/68 L 10/13/21 18:00 78 18 114/85 99 10/13/21 16:16 85 107/76 10/13/21 16:00 36.4 C L 78 18 107/76 96 10/13/21 14:15 76 100 10/13/21 14:00 74 15 101/72 99 10/13/21 13:05 79 101/61 10/13/21 12:00 36.3 C L 83 15 101/74 99 10/13/21 10:59 67 107/73 In
--- NOTE | 2021-10-14 09:30 | P.PNNP_ITS ---
Progress Note: A&P Assessment and Plan (1) Acute renal failure: Qualifiers: Acute renal failure type: unspecified Qualified Code(s): N17.9 - Acute kidney failure, unspecified Code(s): N17.9 - Acute kidney failure, unspecified Status: Acute Assessment and Plan: * normal baseline creatinine * due to ATN from: * hypotension/hemodynamic instability/shock * pre-renal factors * severe anemia * evaluation to date: * renal ultrasound with echogenic kidneys but normal size * urine electrolytes prerenal (but could just be reflective liver physiology) * CPK normal * creatinine a bit better with better hemodynamics * urine steadily improving * follow trend of repeat labs and UOP (2) Hemorrhagic shock: Code(s): R57.8 - Other shock Status: Acute Assessment and Plan: * secondary to variceal bleeding/GI bleed * transfused with multiple blood products (PRBS, FFP, cyro, platelets...etc) * s/p EGD (on 10/11/21) with banding of esophagela varices x 3 * H/H relatively stable now but follow trend * GI following * wean levophed as tolerated (3) Cirrhosis of liver with ascites: Qualifiers: Hepatic cirrhosis type: alcoholic cirrhosis Qualified Code(s): K70.31 - Alcoholic cirrhosis of liver with ascites Code(s): K74.60 - Unspecified cirrhosis of liver; R18.8 - Other ascites Status: Chronic Assessment and Plan: * long standing issue/problems * s/p ultrasound-guided paracentesis [on 10/09/21 (1.8L) and 10/13/21 (2.1L)] * bilirubin remains quite elevated (4) Acute respiratory failure: Qualifiers: Respiratory failure complication: hypoxia Qualified Code(s): J96.01 - Acute respiratory failure with hypoxia Code(s): J96.00 - Acute respiratory failure, unspecified whether with hypoxia or hypercapnia Status: Acute Assessment and Plan: * resolved * initially intubated due to worsening encephalopathy and inability to protect airway * extubated yesterday afternoon (10/13/21) * per , DNR/DNI at this time (5) Liver encephalopathy: Code(s): K72.90 - Hepatic failure, unspecified without coma Status: Acute Assessment and Plan: * questionable improvement * on lactulose and xifaxan (6) Acute alcoholic hepatitis: Code(s): K70.10 - Alcoholic hepatitis without ascites Status: Acute Assessment and Plan: * on prednisolone 40 mg per day although questionable benefit * still with high MELD score * poor prognosis Will continue to follow. Subjective Date/time seen: 10/14/21 09:30 Chart reviewed - assuming care from Dr. Mays; extubated yesterday afternoon and currently on 8L high flow nasal cannula; she still appears drowsy and confused during my visit; still remains on pressor support to maintain MAP. Exam Narrative: General: ill appearing female on high flow nasal cannula Heart: normal S1 and S2; no rub Lungs: coarse breath sounds Abdomen: soft, nontender, nondistended, positive bowel sounds Extremities: no cyanosis or clubbing; no edema Skin: warm and dry; jaundiced Objective Data Vital Signs Vital Signs: Vital Signs Temp Pulse Resp BP Pulse Ox 10/14/21 08:00 67 14 90/65 L 96 10/14/21 07:30 61 111/70 10/14/21 07:00 67 106/67 10/14/21 06:42 68 106/85 10/14/21 06:00 62 12 111/75 97
--- NOTE | 2021-10-14 10:25 | WPDINTPN ---
Progress Note: A&P Assessment and Plan (1) Hepatic encephalopathy: Code(s): K72.90 - Hepatic failure, unspecified without coma Status: Acute Assessment and Plan: Patient with encephalopathy/altered mental status, which could be related to hepatic and metabolic encephalopathy -patient was intubated for airway protection and extubated 10/13 -ammonia levels 88 which has improved to 47 - continue lactulose and rifaximin -continue to hold sedatives (2) Acute respiratory failure: Code(s): J96.00 - Acute respiratory failure, unspecified whether with hypoxia or hypercapnia Status: Acute Assessment and Plan: Patient obtunded, requiring 15 L non-rebreather mask to maintain sats greater than 90%. -impending respiratory failure, patient was successfully intubated on 10/10/2021 -continue bronchodilators Patient was extubated yesterday after recess weaning trial maintaining her oxygenation -chest x-ray this morning shows recurrent atelectasis likely from mucus plugging -per 's request patient is now DNR and DNI -continue Zosyn which will be continued -will order CPT and have patient with right side down to see if we can improve her atelectasis (3) Hemorrhagic shock: Code(s): R57.8 - Other shock Status: Acute Assessment and Plan: Hemorrhagic shock likely related to variceal bleeding/GI bleed. -patient received masses hemorrhage transfusion with 6 units of PRBC, 4 units of FFP, 1 unit of cryo, 1 unit of platelet, vitamin K -hemoglobin currently stable -EGD was done 10/11 with banding x3 of esophageal varices - will continue check H&H which has been stable and transfuse as needed -continue to wean Levophed. Start midodrine (4) GI (gastrointestinal hemorrhage): Qualifiers: GI bleed type/associated pathology: unspecified gastrointestinal hemorrhage type Qualified Code(s): K92.2 - Gastrointestinal hemorrhage, unspecified Code(s): K92.2 - Gastrointestinal hemorrhage, unspecified Status: Acute Assessment and Plan: EGD 10/11 which showed grade 2 esophageal varices status post 3 bands. There was moderate gastritis and moderate portal hypotensive changes in the stomach. No ulcers were seen in the proximal stomach. There is also a small gastric varix. The bulb and the 2nd portion of the duodenum a normal no ulcers or masses -GI following the patient and no evidence of GI bleed at this time Off octreotide and PPI change to IV q.12 hours push Swallow eval today (5) Acute renal failure: Qualifiers: Acute renal failure type: unspecified Qualified Code(s): N17.9 - Acute kidney failure, unspecified Code(s): N17.9 - Acute kidney failure, unspecified Status: Acute Assessment and Plan: Acute kidney injury: Likely related to severe anemia, hemorrhagic shock, hypovolemia, ATN, hepatorenal syndrome -patient to adequately fluid-resuscitated -continue maintenance IV fluids -currently on Levophed will maintain mean arterial pressures greater than 65 mmHg for adequate renal perfusion -creatinine has marginally improved, nephrology following the patient -monitor renal function, electrolytes and urine output -appreciate nephrology following the patient -she could have hepatorenal syndrome -10/10/2021: Renal ultrasound shows medical renal disease, no hydronephrosis (6) Acute blood loss anemia: Code(s): D62 - Acute posthemorrhagic anemia Status: Acute Assessment and Plan: Anemia likely related to hematemesis in GI bleed -patient did receive massive blood transfusions and blood products -continue to monitor H&H which has been stable and transfuse as needed (7) Cirrhosis of liver with ascites: Qualifiers: Hepatic cirrhosis type: alcoholic cirrhosis Qualified Code(s): K70.31 - Alcoholic cirrhosis of liver with ascites Code(s): K74.60 - Unspecified cirrhosis of liver; R18.8 - Other ascites Status: Acute
[2021-10-14] MEDS: MIDODRINE HCL 10 MG TABLET FEED TUBE (11:08)
--- NOTE | 2021-10-14 12:42 | WPDGIPROGNO ---
Progress Note: A&P Assessment and Plan (1) GI (gastrointestinal hemorrhage): Qualifiers: GI bleed type/associated pathology: unspecified gastrointestinal hemorrhage type Qualified Code(s): K92.2 - Gastrointestinal hemorrhage, unspecified Code(s): K92.2 - Gastrointestinal hemorrhage, unspecified Status: Acute Assessment and Plan: treated with egd, required EV banding, also noted small GV s/p iv octreotide (discontinued) now bid protonix not candidate for TIPS because high MELD score poor prognosis, now she is DNR per wishes (2) Esophageal varices in alcoholic cirrhosis: Code(s): K70.30 - Alcoholic cirrhosis of liver without ascites; I85.10 - Secondary esophageal varices without bleeding Status: Acute Assessment and Plan: s/p banding medical support (3) Acute alcoholic hepatitis: Code(s): K70.10 - Alcoholic hepatitis without ascites Status: Acute Assessment and Plan: speech evaluation to see if will be able to have diet started on prednisolone still with high MELD score and Discriminant function poor prognosis (4) Acute respiratory failure: Code(s): J96.00 - Acute respiratory failure, unspecified whether with hypoxia or hypercapnia Status: Acute Assessment and Plan: extubated yesterday (5) Liver encephalopathy: Code(s): K72.90 - Hepatic failure, unspecified without coma Status: Acute Assessment and Plan: on lactulose and xifaxan (6) Acute renal failure: Qualifiers: Acute renal failure type: unspecified Qualified Code(s): N17.9 - Acute kidney failure, unspecified Code(s): N17.9 - Acute kidney failure, unspecified Status: Acute Assessment and Plan: treated also with levophed (weaning off), added midodrine, nephrology on board (7) Hemorrhagic shock: Code(s): R57.8 - Other shock Status: Acute Assessment and Plan: no more bleeding (8) Acute blood loss anemia: Code(s): D62 - Acute posthemorrhagic anemia Status: Acute Assessment and Plan: continue to monitor she is post PRBC and vitamin k, FFP hb has been stable at 10 without any more signs of bleeding (9) Acute liver failure: Code(s): K72.00 - Acute and subacute hepatic failure without coma Status: Acute (10) Coagulopathy: Code(s): D68.9 - Coagulation defect, unspecified Status: Acute Assessment and Plan: will give 3 days of vit K Subjective Date/time seen: 10/14/21 12:42 Interval history: she was extubated yesterday but still ill. She is awake but confused and mumbling, no more report of GIB. On low dose of levophed. Review of Systems Review of Systems: All systems reviewed & are unremarkable except as noted in HPI and below Exam Const: Other: ill, jaundice, cachectic, awake but encephalopathic on high flow of oxygen HENMT: General nose exam: Normal nares present Eyes: Other: icteric sclerae- very jaundice, unchanged Neck: Neck: supple Resp: Auscultation: rhonchi Cardio: Rate: regular rate GI: Inspection: distended GI Palp: Yes Soft to palpation and No Tenderness to palpation present (GI) Percussion: Yes Fluid wave present (better after paracentesis) Auscultation: normal bowel sounds Urinary Catheter: Urinary Catheter: patent and draining Skin: Other: jaundice Neuro: Other: spontaneous movement and awake, + asterixis, confused Extrem: General: normal to inspection Psych: Other: confused Objective Data Vital Signs Vital Signs: Vital Signs - 24 hr 10/13/21 13:05 10/13/21 14:00 10/13/21 14:15 Temperature Pulse Rate 79 74 76 Respiratory Rate 15 Blood Pressure 101/61 101/72 Pulse Oximetry 99 100 10/13/21 16:00 10/13/21 16:16 10/13/21 18:00 Temperature 97.5 F L Pulse Rate 78 85 78 Respiratory Rate 18 18 Blood Pressure 107/76 107/76 114/85 Pulse Oximetry 96 99 10/13/21 18:14 10/13/21 20:00
[2021-10-14] MEDS: FOLIC ACID 1 MG/0.2 ML INJ IV PUSH (12:48)
[2021-10-14] MEDS: prednisoLONE ORAL SOLN 30 MG/10 ML SOLUTION 40 MG FEED TUBE (12:52)
--- NOTE | 2021-10-14 13:57 | PCSTNOTE ---
ST attempted bedside swallow evaluation however, nsg indicated pt would not tolerate this at this time since she has been declining in status with low BP and increased oxygen.
--- NOTE | 2021-10-14 14:21 | PC.NURSE ---
At 1348, Patient began desaturating to 78% on 8L high flow nasal cannula, blood pressure 78/48. oxygen titrated to 15 L high flow nasal cannula, with little to no improvement in oxygen saturations. Patient has a weak cough and unable to clear secretions. 15L non-rebreather added. Oxygen saturations now 95%. Levophed gtt titrated (see MAR for levophed titration).
--- NOTE | 2021-10-14 14:22 | PM.EVENT ---
Event Note Event Note Event Note: Patient was extubated yesterday and was on nasal cannula this morning. X-ray showed atelectasis of the left side over the course of day her oxygen requirement had gone up and patient is now on non-rebreather mask on with high-flow nasal cannula. Patient is confused and not cooperative with care. I spoke to patient's Nate again today by phone. I have had several conversations with him over last 2 days. He was here yesterday evening and to visit her and told me that he saw her in the ventilator with jaundice and and felt that patient was suffering and going through lot of pain which she would not want. He is aware that her liver disease is untreatable and she has poor prognosis. Has had multiple admissions this year and has been noncompliant with treatment. She has continued to drink alcohol. He states that he has discussed with patient's parents and feels that we should not do any further invasive therapy, ventilation or testing. He feels that we should keep patient pain-free and comfortable and let the nature takes record. He states that his goal is for her to not suffer and in peace considering multiorgan failure she has. I clarified to him that if we proceed with comfort care would mean discontinuation of treat and institution of medications to promote comfort only and this will mean the patient will eventually . I have explained to him that I will use opioids, anxiolytics and other agents on as needed basis to promote comfort and discontinue all medical therapy including vasopressors, lab testing and invasive monitoring at this time. He verbalized understanding the patient will be kept comfortable and pain-free and will eventually and agreed with the plan.
[2021-10-14] MEDS: LORazepam INJ (*CRX) 2 MG/ML VIAL IV PUSH (17:49)
[2021-10-14] MEDS: MORPHINE SULFATE (*CRX) 2 MG/ML INJ 5 MG IV PUSH (17:49)
--- NOTE | 2021-10-14 21:35 | PC.NURSE ---
Updated patient's on new room number and patient status. Informed him I would call if anything changes with patient status. He was appreciative on the phone and emphasized he does not want his to be in pain anymore.
[2021-10-15 08:00] VITALS: BP 102/51; PULSE 55; RESP 16; TEMP 35.8; O2SAT 90
[2021-10-15] MEDS: LORazepam INJ (*CRX) 2 MG/ML VIAL IV PUSH (08:09)
--- NOTE | 2021-10-15 09:29 | PM.IMPN ---
Progress Note: A&P Assessment and Plan (1) Hemorrhagic shock: Code(s): R57.8 - Other shock Status: Acute Assessment and Plan: Hemorrhagic shock likely related to variceal bleeding/GI bleed. -patient received massive transfusion with 6 units of PRBC, 4 units of FFP, 1 unit of cryo, 1 unit of platelet, vitamin K -hemoglobin currently stable -EGD was done this morning with banding x3 of esophageal varices -continue monitor H&H q.6 hours -currently on Levophed and octreotide. - will transfuse as needed (2) GI (gastrointestinal hemorrhage): Qualifiers: GI bleed type/associated pathology: unspecified gastrointestinal hemorrhage type Qualified Code(s): K92.2 - Gastrointestinal hemorrhage, unspecified Code(s): K92.2 - Gastrointestinal hemorrhage, unspecified Status: Acute Assessment and Plan: EGD this morning which showed grade 2 esophageal varices status post 3 bands. There was moderate gastritis and moderate portal hypotensive changes in the stomach. No ulcers were seen in the proximal stomach. There is also a small gastric varix. The bulb and the 2nd portion of the duodenum a normal no ulcers or masses. Hemoglobin in the 7.9-8.2 range. -GI following the patient (3) Acute renal failure: Qualifiers: Acute renal failure type: unspecified Qualified Code(s): N17.9 - Acute kidney failure, unspecified Code(s): N17.9 - Acute kidney failure, unspecified Status: Acute Assessment and Plan: Likely pre renal versus ischemic ATN in the setting of massive GI bleeding, and hypotension requiring pressors.. Currently on octreotide and a refit. Given the patient body habitus and poor muscle mass, her creatinine likely overestimates her kidney. Urinary output is very poor with only 200 cc overnight. ATN is likely secondary to severe anemia due to GI bleeding causing hypotension. Per Nephrology, rule out obstruction with renal ultrasound. Obtain urine electrolytes CK level. (4) Acute blood loss anemia: Code(s): D62 - Acute posthemorrhagic anemia Status: Acute Assessment and Plan: Clinically 2 to GI bleeding secondary to esophageal viruses. Patient PRBC, cryo, FFP, platelet. (5) Cirrhosis of liver with ascites: Qualifiers: Hepatic cirrhosis type: alcoholic cirrhosis Qualified Code(s): K70.31 - Alcoholic cirrhosis of liver with ascites Code(s): K74.60 - Unspecified cirrhosis of liver; R18.8 - Other ascites Status: Acute Assessment and Plan: Abdominal distension with moderate volume ascites on CT scan of the abdomen pelvis done on admission on 10/08/2021 -PAracentesis with 1800ccs fluid drained on 10/09/2021. -interventional radiology will perform an ultrasound-guided thoracentesis today - albumin post paracentesis (6) Tobacco dependence: Code(s): F17.200 - Nicotine dependence, unspecified, uncomplicated Status: Acute Assessment and Plan: Discussed with patient regarding tobacco cessation, she said she will think about (7) DVT prophylaxis: Code(s): Z29.9 - Encounter for prophylactic measures, unspecified Status: Acute Assessment and Plan: SCDs Additional Plan Discussed with patient updated with her condition and plan of care. Code status: Full code Critical care time spent: 31 minutes. Subjective Date/time seen: 10/15/21 09:29 Interval history: she was extubated yesterday but still ill. She is awake but confused and mumbling, no more report of GIB. On low dose of levophed. Review of Systems Review of Systems: All systems reviewed & are unremarkable except as noted in HPI and below ROS unobtainable: Yes unobtainable due to endotracheal tube and unobtainable due to mental status Constitutional: Constitutional: Reports as per HPI and Reports no additional constitutional complaints Eyes: Eyes: Reports as per HPI and Reports no additional eye complaints ENT: Reports syst
[2021-10-15 11:32] LABS: Hematocrit 32.2 % (37.0-47.0); Hemoglobin 10.9 g/dL (12.0-15.0); Immature Platelet Fraction Pct 6.8 % (0.9-11.2); Mean Corpuscular HGB Conc 33.9 g/dl (32-36); Mean Corpuscular Hemoglobin 31.5 pg (26-34); Mean Corpuscular Volume 93.1 fl (80-100); Mean Platelet Volume 10.8 fl (7.4-10.4); Platelet Count Result 65 k/mm3 (150-375); Red Blood Count 3.46 M/mm3 (4.2-5.4); Red Cell Distribution Width 23.6 % (11.5-14.5); White Blood Count 12.3 K/mm3 (4.5-10.0)
--- NOTE | 2021-10-15 11:37 | WPDGIPROGNO ---
Progress Note: A&P Assessment and Plan (1) GI (gastrointestinal hemorrhage): Qualifiers: GI bleed type/associated pathology: unspecified gastrointestinal hemorrhage type Qualified Code(s): K92.2 - Gastrointestinal hemorrhage, unspecified Code(s): K92.2 - Gastrointestinal hemorrhage, unspecified Status: Acute Assessment and Plan: treated with egd, required EV banding, also noted small GV s/p iv octreotide (discontinued) now bid protonix not candidate for TIPS because high MELD score now she is DNR per wishes and actually family leaning towards comfort measures only- they understand overall poor prognosis (2) Esophageal varices in alcoholic cirrhosis: Code(s): K70.30 - Alcoholic cirrhosis of liver without ascites; I85.10 - Secondary esophageal varices without bleeding Status: Acute Assessment and Plan: s/p banding medical support (3) Acute alcoholic hepatitis: Code(s): K70.10 - Alcoholic hepatitis without ascites Status: Acute Assessment and Plan: speech evaluation to see if will be able to have diet started on prednisolone still with high MELD score and Discriminant function poor prognosis (4) Acute respiratory failure: Code(s): J96.00 - Acute respiratory failure, unspecified whether with hypoxia or hypercapnia Status: Acute Assessment and Plan: extubated 2 days ago (5) Liver encephalopathy: Code(s): K72.90 - Hepatic failure, unspecified without coma Status: Acute Assessment and Plan: on lactulose and xifaxan (6) Acute renal failure: Qualifiers: Acute renal failure type: unspecified Qualified Code(s): N17.9 - Acute kidney failure, unspecified Code(s): N17.9 - Acute kidney failure, unspecified Status: Acute Assessment and Plan: s/p levophed, midodrine, nephrology on board (7) Hemorrhagic shock: Code(s): R57.8 - Other shock Status: Acute Assessment and Plan: no more bleeding (8) Acute blood loss anemia: Code(s): D62 - Acute posthemorrhagic anemia Status: Acute Assessment and Plan: continue to monitor she is post PRBC and vitamin k, FFP no more signs of bleeding (9) Acute liver failure: Code(s): K72.00 - Acute and subacute hepatic failure without coma Status: Acute (10) Coagulopathy: Code(s): D68.9 - Coagulation defect, unspecified Status: Acute Assessment and Plan: vit K Subjective Date/time seen: 10/15/21 11:37 Interval history: he was moved to floor, he is mumbling and still ill appearing, significant jaundice unchanged Review of Systems Review of Systems: All systems reviewed & are unremarkable except as noted in HPI and below Exam Const: Other: ill, jaundice, cachectic, awake but encephalopathic HENMT: General nose exam: Normal nares present Eyes: Other: icteric sclerae- very jaundice, unchanged Neck: Neck: supple Resp: Auscultation: rhonchi Cardio: Rate: regular rate GI: Inspection: distended GI Palp: Yes Soft to palpation and No Tenderness to palpation present (GI) Percussion: Yes Fluid wave present (better after paracentesis) Auscultation: normal bowel sounds Skin: Other: jaundice Neuro: Other: spontaneous movement and awake, + asterixis, confused Extrem: General: normal to inspection Psych: Other: confused Objective Data Vital Signs Vital Signs: Vital Signs - 24 hr 10/14/21 12:00 10/14/21 12:37 10/14/21 13:48 Temperature Pulse Rate 62 61 Respiratory Rate 13 Blood Pressure 95/63 L 95/63 L 78/48 L Pulse Oximetry 98 78 L 10/14/21 14:00 10/14/21 16:00 10/14/21 19:47 Temperature 96.2 F L Pulse Rate 60 63 61 Respiratory Rate 18 15 14 Blood Pressure 110/65 95/72 L 78/51 L Pulse Oximetry 95 84 L 90 10/15/21 08:00 Temperature 96.4 F L Pulse Rate 55 L Respiratory Rate 16 Blood Pressure 102/51 L Pulse Oximetry 90 Intake/Output
[2021-10-15 11:50] LABS: Alanine Aminotransferase 28 U/L (4-35); Albumin Level 2.7 g/dL (3.5-5.1); Alkaline Phosphatase 86 U/L (38-126); Anion Gap 12 mmol/L (8-16); Aspartate Amino Transferase 150 U/L (14-36); Bilirubin,Total 29.4 mg/dL (0.2-1.3); Blood Urea Nitrogen 27 mg/dL (7-17); Calcium 9.1 mg/dL (8.4-10.2); Carbon Dioxide 22 mmol/L (22-30); Chloride 102 mmol/L (98-107); Estimated CRCL calculation 14 ml/min; Estimated Glomerular Filt Rate 16; Glucose 104 mg/dL (65-110); Phosphorus 7.8 mg/dL (2.5-4.5); Potassium 4.3 mmol/L (3.4-5.0); Sodium 136 mmol/L (137-145)
[2021-10-15 12:22] LABS: Band Neutrophils Percent 6 % (0-6); Burr Cells 2+ (NORMAL); Lymphocytes Absolute Manual 3.32 K/mm3 (1.1-4.5); Metamyelocytes Percent 2 %; Monocytes Absolute Manual 0.61 K/mm3 (0.1-0.90); Monocytes Percent Manual 5 % (3-9); Neutrophils Absolute Manual 8.11 K/mm3 (1.7-7.2); Neutrophils Percent Manual 60 % (46-73); Platelet Estimate Decreased (Adequate); Total Cells Counted 100
[2021-10-15 12:23] LABS: Ovalocytes 1+ (NORMAL); Target Cells 1+ (NORMAL)
--- NOTE | 2021-10-15 14:06 | PM.DS ---
DS: Admitting Diagnosis Discharge Date 10/15/2021 Admitting Diagnosis Hemmorhagic Shock, Acute renal failure, Liver failure, GI bleed. Coagulopathy DS: Discharge Diagnosis Discharge Diagnosis (1) Hemorrhagic shock: Code(s): R57.8 - Other shock Status: Acute Assessment and Plan: Hemorrhagic shock likely related to variceal bleeding/GI bleed. -patient received massive transfusion with 6 units of PRBC, 4 units of FFP, 1 unit of cryo, 1 unit of platelet, vitamin K -hemoglobin currently stable -EGD was done with banding x3 of esophageal varices -continue monitor H&H -weaned from Levophed and octreotide. - will transfuse as needed no evidence of bleeding at this time -Very poor prognosis as patient continues to worsen with Altered Mental Status/Unresponsive and worsening renal failure with Phos 7.8 and Creatinine 3.10 - and Daughter in law stated again today that the patient's wishes was to not have to live like this and family has chosen Hospice today. They want a Hospice evaluation and want her to have IN-patient hospice care if she qualifies. -Currently Comfort Measures pending Hospice approval. (2) GI (gastrointestinal hemorrhage): Qualifiers: GI bleed type/associated pathology: unspecified gastrointestinal hemorrhage type Qualified Code(s): K92.2 - Gastrointestinal hemorrhage, unspecified Code(s): K92.2 - Gastrointestinal hemorrhage, unspecified Status: Acute Assessment and Plan: EGD showed grade 2 esophageal varices status post 3 bands. There was moderate gastritis and moderate portal hypotensive changes in the stomach. No ulcers were seen in the proximal stomach. There is also a small gastric varix. The bulb and the 2nd portion of the duodenum a normal no ulcers or masses. -GI following the patient treated with egd, required EV banding, also noted small GV s/p iv octreotide (discontinued) now bid protonix not candidate for TIPS because high MELD score now she is DNR per wishes and actually family leaning towards comfort measures only- they understand overall poor prognosis -Very poor prognosis as patient continues to worsen with Altered Mental Status/Unresponsive and worsening renal failure with Phos 7.8 and Creatinine 3.10 - and Daughter in law stated again today that the patient's wishes was to not have to live like this and family has chosen Hospice today. They want a Hospice evaluation and want her to have IN-patient hospice care if she qualifies. -Currently Comfort Measures pending Hospice approval. (3) Acute renal failure: Qualifiers: Acute renal failure type: unspecified Qualified Code(s): N17.9 - Acute kidney failure, unspecified Code(s): N17.9 - Acute kidney failure, unspecified Status: Acute Assessment and Plan: Likely pre renal versus ischemic ATN in the setting of massive GI bleeding, and hypotension requiring pressors.. weaned from octreotide and a refit. Given the patient body habitus and poor muscle mass, her creatinine likely overestimates her kidney. Urinary output is very poor with only 200 cc overnight. ATN is likely secondary to severe anemia due to GI bleeding causing hypotension. Per Nephrology, rule out obstruction with renal ultrasound. Obtained urine electrolytes CK level. s/p levophed, midodrine, nephrology on board -Very poor prognosis as patient continues to worsen with Altered Mental Status/Unresponsive and worsening renal failure with Phos 7.8 and Creatinine 3.10 - and Daughter in law stated again today that the patient's wishes was to not have to live like this and family has chosen Hospice today. They want a Hospice evaluation and want her to have IN-patient hospice care if she qualifies. -Currently Comfort Measures pending Hospice approval. (4) Acute blood loss anemia: Code(s): D62 - Acute posthemorrhagic anemia Status: Acute Assessment and Plan: Clinically 2 to G
[2021-10-15] MEDS: MORPHINE SULFATE (*CRX) 2 MG/ML INJ 5 MG IV PUSH (15:40)
== END 2021-10-15 16:55 | disposition hospice, inpatient (51) | DRG 280 ==
LOC: ANHED 13:46 → ANHICU 23:34 → ANH3MED 10-15 08:17 → ANHICU 10-18 10:51
PROVIDERS: Internal Medicine; Internal Medicine Gastroenterology; Internal Medicine Nephrology; Admitting Provider Student in an Organized Health Care Education/Training Program; Emergency Provider Emergency Medicine; PCP Physician Assistant; Visit Provider Nurse Practitioner
PROC: 0DJ08ZZ Inspection of Upper Intestinal Tract, Via Natural or Artificial Opening Endoscopic (ICD-10-PCS; CPT 43235; principal; 2021-10-09 14:30)
DX: R57.8 Other shock; D62 Acute posthemorrhagic anemia; F10.288 Alcohol dependence with other alcohol-induced disorder; K70.31 Alcoholic cirrhosis of liver with ascites; E72.20 Disorder of urea cycle metabolism, unspecified; N17.9 Acute kidney failure, unspecified; E83.42 Hypomagnesemia; E87.6 Hypokalemia; F17.210 Nicotine dependence, cigarettes, uncomplicated; K76.6 Portal hypertension; I10 Essential (primary) hypertension; K72.00 Acute and subacute hepatic failure without coma; K72.10 Chronic hepatic failure without coma; K70.11 Alcoholic hepatitis with ascites; K29.70 Gastritis, unspecified, without bleeding; I85.11 Secondary esophageal varices with bleeding; I86.4 Gastric varices; L40.9 Psoriasis, unspecified; E43 Unspecified severe protein-calorie malnutrition; J96.00 Acute respiratory failure, unspecified whether with hypoxia or hypercapnia; Z66 Do not resuscitate; D68.4 Acquired coagulation factor deficiency; Z79.899 Other long term (current) drug therapy
CPT/HCPCS: 36415; 36430; 36556; 36600; 49083; 70450; 71045; 74176; 76775; 80048; 80053; 82140; 82375; 82550; 82570; 82805; 83050; 83605; 83690; 83735; 84100; 84132; 84156; 84300; 85014; 85018; 85025; 85027; 85055; 85380; 85384; 85610; 85730; 86850; 86900; 86901; 86920; 87040; 87070; 87075; 87205; 89051; 94002; 94003; 94640; 94669; 99285; A9270; C1751; C9113; J0610; J0696; J2060; J2270; J2354; J2543; J2704; J2765; J3411; J3430; J3475; J3480; J7030; J7050; J7060; J7120; P9012; P9016; P9017; P9034; P9047

== ENCOUNTER 2021-10-15 11:59 | HOS | payer OTHER, SELFPAY ==
--- NOTE | 2021-10-15 18:32 | PM.IMHP ---
H&P: HPI History of Present Illness Date/Time: 10/15/21 14:00 Chief Complaint: ESLD Narrative: Patient presented to ED 1/2 with generalized abd pain, abd distension. Was found to have coagulopathy and elevated creatinine and anemia. As she was still drinking, she was not a candidate for liver transplant. She developed probressive confusion and jaundice. , who is POA, opted for comfort only. Review of Systems Review of Systems: ROS unobtainable: Yes unobtainable due to medical condition PMFSH Past Medical History Medical History Abdominal pain Alcoholic hepatitis with ascites Alcoholism Anxiety Cirrhosis, alcoholic Depression Esophageal varices in alcoholic cirrhosis Essential hypertension Liver encephalopathy Melena Portal hypertension Psoriasis Respiratory failure Severe protein-calorie malnutrition Tobacco dependence Surgical History Surgical History History of esophagogastroduodenoscopy (EGD) No evidence of varices noted on EGD 12/2020. Gastritis and hiatal hernia noted Family History Family History Mother Lung cancer Hypertension Depression Anxiety Social History Social History Social History: She has smoked as much as 1.5 packs of cigarettes per day but has cut down to half pack of cigarettes per day this year. She is and has has 3 children. 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 The patient stated that she smoked marijuana long time ago but no longer uses it. The patient drinks beer. She has had an issue with alcohol abuse for approximately 20 years. She no longer drinks on a daily basis with the last time she did drink several beers was a couple of days [employer] to acute care. Primary care physician: Dr. Rodrigo Watts Code status: DNR Surrogate decision maker: Smoking packs per day: 1 Smoking cigarettes per day: 20.0 Years smoked: 30 Smoking pack-years: 30.00 Smoking status: Current every day smoker Tobacco type: cigarettes Second hand tobacco smoke exposure: Yes Alcohol intake: current Drinks per week: 3 Substance use: never Substance use type: does not use Gender identity (if verbalized by the patient): Female Spiritual care concerns: No Meds Home Medications and Allergies Home Medications Medication Instructions Recorded Confirmed Type folic acid 1 mg PO DAILY 07/24/21 10/09/21 History furosemide 40 mg PO DAILY 07/24/21 10/09/21 History spironolactone 100 mg PO DAILY 07/24/21 10/09/21 History thiamine HCl (vitamin B1) [Vitamin 100 mg PO DAILY 07/24/21 10/09/21 History B-1] nadolol 10 mg PO DAILY 08/18/21 10/09/21 History omeprazole 20 mg PO DAILY 08/18/21 10/09/21 History Allergies Allergy/AdvReac Type Severity Reaction Status Date / Time No Known Allergies Allergy Verified 10/09/21 13:07 Exam Narrative: deeply jaundiced with scleral icterus muscus membranes moist neck w/o jvd Chest coarse BS Heart RR w/o murmur extr w/o cce abd hyypoactive BS, soft, nonender ms w/o tremor neuro cn grossly symmetric psych minimally responsive to verbal stimuli Assessment and Plan Assessment and plan (1) Palliative care by specialist: Code(s): Z51.5 - Encounter for palliative care Status: Acute Assessment and Plan: Meets inpatient hospice criteria as she is too unstable to transfer due to shock and alterered mental status palliative regimen as ordered (2) Hepatic encephalopathy: Code(s): K72.90 - Hepatic failure, unspecified without coma Status: Acute (3) Acute respiratory failure: Qualifiers: Respiratory failure complication: hypoxia Qualified Code(s): J96.01 - Acute respiratory fail
[2021-10-15 19:52] VITALS: BP 73/39; PULSE 55; RESP 16; O2SAT 68
[2021-10-16] MEDS: MORPHINE SULFATE (*CRX) 2 MG/ML INJ 1 MG IV PUSH (00:35)
[2021-10-16 12:30] VITALS: BP 68/40; PULSE 70; RESP 20; TEMP 37.1; O2SAT 72
--- NOTE | 2021-10-16 17:00 | P.PNIM_ITS ---
Progress Note: A&P Assessment and Plan (1) Palliative care by specialist: Code(s): Z51.5 - Encounter for palliative care Status: Acute Assessment and Plan: * Meets inpatient hospice criteria as she is too unstable to transfer due to shock and alterered mental status * palliative regimen as ordered (2) Hepatic encephalopathy: Code(s): K72.90 - Hepatic failure, unspecified without coma Status: Acute (3) Acute respiratory failure: Qualifiers: Respiratory failure complication: hypoxia Qualified Code(s): J96.01 - Acute respiratory failure with hypoxia Code(s): J96.00 - Acute respiratory failure, unspecified whether with hypoxia or hypercapnia Status: Acute (4) Hyperammonemia: Code(s): E72.20 - Disorder of urea cycle metabolism, unspecified Status: Acute (5) Acute liver failure: Qualifiers: Hepatic coma status: with hepatic coma Qualified Code(s): K72.01 - Acute and subacute hepatic failure with coma Code(s): K72.00 - Acute and subacute hepatic failure without coma Status: Acute (6) Cirrhosis of liver with ascites: Qualifiers: Hepatic cirrhosis type: alcoholic cirrhosis Qualified Code(s): K70.31 - Alcoholic cirrhosis of liver with ascites Code(s): K74.60 - Unspecified cirrhosis of liver; R18.8 - Other ascites Status: Acute Subjective Date/time seen: 10/16/21 17:00 Interval history: October 16 visit Resting comfortably Review of Systems Review of Systems: ROS unobtainable: Yes unobtainable due to medical condition Exam Narrative: deeply jaundiced with scleral icterus muscus membranes moist neck w/o jvd Chest coarse BS Heart RR w/o murmur extr w/o cce abd hyypoactive BS, soft, nonender ms w/o tremor neuro cn grossly symmetric psych unresponsive to verbal or tactile stimuli Objective Data Vital Signs Vital Signs: Vital Signs - 24 hr 10/15/21 19:52 10/16/21 12:30 Temperature 98.8 F Pulse Rate 55 L 70 Respiratory Rate 16 20 Blood Pressure 73/39 L 68/40 L Pulse Oximetry 68 L 72 L Meds/Results Medications: Active Medications Generic Name Dose Route Start Last Admin Trade Name Freq PRN Reason Stop Dose Admin Acetaminophen 650 mg 10/15/21 17:30 Acetaminophen 650 Mg Suppository RECTAL Q6H PRN Fever Artificial Tears 1 drop 10/15/21 17:30 Artificial Tears Ophth Soln 15 Ml Bottle EACH EYE Q12H PRN Dry Eye(s) Bisacodyl 10 mg 10/15/21 17:30 Bisacodyl 10 Mg Suppository RECTAL QAM PRN Constipation Glycopyrrolate 0.1 mg 10/15/21 17:29 Glycopyrrolate Inj (*Sp) 0.2 Mg/Ml Vial IV PUSH Q6H PRN SECRETIONS Lorazepam 1 mg 10/15/21 17:29 Lorazepam Inj (*Crx) 2 Mg/Ml Vial IV PUSH Q2H PRN Anxiety OR RESTLESSNESS Morphine Sulfate 1 mg 10/15/21 17:26 10/16/21 00:35 Morphine Sulfate (*Crx) 2 Mg/Ml Inj IV PUSH 1 mg Q4H PRN Administration PAIN/DYSPNEA Prochlorperazine Edisylate 10 mg 10/15/21 17:29 Prochlorperazine Edisylate 10 Mg/2 Ml Vial IV PUSH Q6H PRN Nausea And Vomiting
[2021-10-17] MEDS: LORazepam INJ (*CRX) 2 MG/ML VIAL 1 MG IV PUSH (01:03)
[2021-10-17] MEDS: MORPHINE SULFATE (*CRX) 2 MG/ML INJ 1 MG IV PUSH (02:02)
--- NOTE | 2021-10-17 03:00 | PC.NURSE ---
Per Tan, patient is not a candidate for donation.
--- NOTE | 2021-10-17 07:32 | PC.NURSE ---
Nurse called the family member Nate Proctor at the phone number in the information/ contact list and informed the family member that [place] [facility] [place]. Left the phone numbers to both 2nd medical and 3rd medical for the to call us back and sign paperwork etc. manufacturing supervisor 2nd shift and nurse information technology project manager aware of the situation.
--- NOTE | 2021-10-17 17:24 | P.DN_ITS ---
Discharge Summary Date and Time Date of : 10/17/21 Time of : 02:10 Provider Pronounced By: Candi Holliday Probable Cause of Probable Cause of : HEPATIC ENCEPHALOPATHY DUE TO ACUTE ON CHRONIC LIVER FAILURE DUE TO ALCOHOLIC CIRRHOSIS Summary Hospital Course: ADMITTED INPATIENT HOSPICE DUE TO END-STAGE LIVER DISEASE WITH SEVERE ENCEPHALOPATHY AND CONFUSION AND INSTABILITY FOR TRANSFER DUE TO HYPOTENSION AND FRAILTY. MEDICATIONS TITRATED TO COMFORT. PATIENT PEACEFULLY. Additional Data Confirmation of as documented by pronouncing clinician: Pupillary Reflex, Palpable Pulses, Response to Stimuli, Heart Tones and Breath Sounds Name of Provider Notified: Dr. Scott Molina Time Provider Notified: 02:26 Provider Requests Autopsy: No Family Requests Autopsy: No Recreation Counselor Notified: Yes Date [facility] Notified of : 10/17/21 Time [facility] Notified of : 02:28
== END 2021-10-17 02:10 | disposition expired | DRG 951 ==
PROVIDERS: Admitting Provider Internal Medicine; PCP Physician Assistant; Visit Provider Internal Medicine
DX: Z51.5 Encounter for palliative care (principal); J96.01 Acute respiratory failure with hypoxia; E43 Unspecified severe protein-calorie malnutrition; E72.20 Disorder of urea cycle metabolism, unspecified; K70.40 Alcoholic hepatic failure without coma; K70.31 Alcoholic cirrhosis of liver with ascites; K70.11 Alcoholic hepatitis with ascites; F10.20 Alcohol dependence, uncomplicated; R57.8 Other shock; D64.9 Anemia, unspecified; F41.9 Anxiety disorder, unspecified; F32.A Depression, unspecified; I10 Essential (primary) hypertension; L40.9 Psoriasis, unspecified; F17.210 Nicotine dependence, cigarettes, uncomplicated; Z66 Do not resuscitate
CPT/HCPCS: A9270; J2060; J2270